=== PATIENT | female | born 1945 | race African-American/Black ===

== ENCOUNTER 2017-02-14 12:26 | Emergency (ER) | payer OTHER ==
[~2017-02-14] VITALS: Ht 160 cm; Wt 61.7 kg
[~2017-02-14 12:26] MED LIST: COZAAR 50 MG TA50 M1 PO; NORVASC2.5 MG PO; NORVASC5 MG PO
[2017-02-14 12:52] VITALS: BP 195/98
[2018-01-03] MEDS ORDERED: [UNRECOGNIZED DRUG - OTHER] (18:44)
[2018-01-03] MEDS ORDERED: [UNRECOGNIZED DRUG - OTHER] (18:44)
[2018-01-03] MEDS ORDERED: MAGNESIUM GLYCINATE (18:46)
== END 2017-02-14 13:09 | disposition home or self-care (01) ==
LOC: M.ERS 12:26
DX: Z48.01 Encounter for change or removal of surgical wound dressing (principal); I10 Essential (primary) hypertension; Z88.0 Allergy status to penicillin; Z88.8 Allergy status to other drugs, medicaments and biological substances

== ENCOUNTER 2018-01-02 09:36 | Inpatient (IN) | payer OTHER ==
[~2018-01-02] VITALS: Ht 162.6 cm; Wt 64.4 kg
[2018-01-02 09:48] VITALS: BP 224/91
[2018-01-02 10:26] LABS: URINE BILIRUBIN NEGATIVE (Negative); URINE BLOOD NEGATIVE (Negative); URINE CLARITY CLEAR; URINE COLOR STRAW; URINE GLUCOSE-RANDOM NEGATIVE (Negative); URINE KETONES NEGATIVE (Negative); URINE LEUKOCYTES-REFLEX NEGATIVE (Negative); URINE NITRITE-REFLEX NEGATIVE (Negative); URINE PROTEIN NEGATIVE (Negative); URINE UROBILINOGEN 0.2 E.U./dl (0.2-1.0)
[2018-01-02 10:32] LABS: ABSOLUTE LYMPHOCYTES 0.6 thou/uL (0.8-5.3); ABSOLUTE MONOCYTES 0.3 thou/uL (0.0-1.2); ABSOLUTE NEUTROPHILS 3.8 thou/uL (1.6-8.1); BASOPHILS 0.3 %; EOSINOPHILS 0.1 %; HEMATOCRIT 37.8 % (37.0-47.0); HEMOGLOBIN 12.7 gm/dL (12.0-15.0); LYMPHOCYTES 13.2 %; MCH 28.9 pg (26.0-34.0); MCHC 33.6 g/dL (28.0-37.0); MCV 86.2 fL (80.0-100.0); MONOCYTES 5.6 %; MPV 9.2 fl. (7.2-11.1); NUCLEATED RBCS 0 /100WBC; PLATELET COUNT* 145 thou/uL (150-400); POLYS 80.8 %; RBC 4.38 mil/uL (4.20-5.00); RDW-CV 13.9 % (10.5-14.5); WBC 4.7 thou/uL (4.0-11.0)
[2018-01-02 10:40] LABS: CREATININE 1.1 mg/dL (0.6-1.3)
[2018-01-02 10:43] LABS: POTASSIUM 2.9 mmol/L (3.5-5.1)
[2018-01-02 10:44] LABS: ALBUMIN 3.7 g/dL (3.4-5.0); MAGNESIUM 1.9 mg/dL (1.8-2.4); TOTAL BILIRUBIN 0.5 mg/dL (<0.1-1.0); TOTAL PROTEIN 8.2 g/dL (6.4-8.2)
[2018-01-02 12:55] VITALS: BP 185/85
[2018-01-02 13:15] VITALS: BP 189/101
[2018-01-02 15:39] VITALS: BP 152/72
[2018-01-02 15:40] VITALS: BP 152/72; BP 164/83; BP 169/78
[2018-01-02 20:00] VITALS: BP 124/62
[2018-01-03] VITALS (7 sets, daily range): BP systolic 123–182; BP diastolic 53–86
[2018-01-03 04:34] LABS: HEMATOCRIT 32.3 % (37.0-47.0); HEMOGLOBIN 10.8 gm/dL (12.0-15.0); MCH 29.3 pg (26.0-34.0); MCHC 33.4 g/dL (28.0-37.0); MCV 87.8 fL (80.0-100.0); MPV 9.5 fl. (7.2-11.1); RBC 3.67 mil/uL (4.20-5.00); RDW-CV 14.3 % (10.5-14.5); WBC 3.6 thou/uL (4.0-11.0)
[2018-01-03 04:44] LABS: ALBUMIN 2.6 g/dL (3.4-5.0); CALCIUM 8.4 mg/dL (8.5-10.1); CREATININE 1.1 mg/dL (0.6-1.3); MAGNESIUM 1.9 mg/dL (1.8-2.4); TOTAL BILIRUBIN 0.5 mg/dL (<0.1-1.0); TOTAL PROTEIN 6.1 g/dL (6.4-8.2)
[2018-01-03 05:06] LABS: POTASSIUM 4.1 mmol/L (3.5-5.1)
--- NOTE | 2018-01-03 14:14 | EKG ---
[place] [address] ELECTROCARDIOGRAM REPORT Name: WANG SMITH Room: [address] ADM IN M.R.#: [id number] Admission: 01/02/18 Attend Phys: Josh Nagel MD Discharge: Date of : 47 Report #: [id number] THIS REPORT FOR: //name// [facility] ED Test Date: 2018-01-02 Test Time: 10:03:08 Pat Name: WANG SMITH Department: Room: [address] Gender: F Sheet Writer: Emily MOSQUEDA : 1945 Requested By: Chnada Hidalgo Order Number: [id number] Giselle MD: Thomas Rueda Measurements Intervals [place] Rate: 73 P: 69 MD: 165 QRS: 28 QRSD: 89 T: 49 QT: 380 QTc: 419 Interpretive Statements Sinus rhythm Left atrial enlargement Compared to ECG 02/07/2017 10:48:45 No significant changes Electronically Signed On 01-03-2018 14:14:10 SPEAR FISHER by Thomas Rueda [email or web address] <ELECTRONICALLY SIGNED> By: Thomas Rueda MD, [facility] 01/03/18 1414 1003 1003 Thomas Rueda MD, FACC /EPI
[2018-01-03] MEDS ORDERED: CO Q-10100 M1 PO (18:44)
[2018-01-03] MEDS ORDERED: [UNRECOGNIZED DRUG - OTHER] PO (18:44)
[2018-01-03] MEDS ORDERED: MAGNESIUM GLYCINATE PO (18:46)
[2018-01-04] VITALS (7 sets, daily range): BP systolic 174–228; BP diastolic 86–100
[2018-01-04 05:14] LABS: CHOLESTEROL 170 mg/dL (<200); HDL CHOLESTEROL 71 mg/dL (>40); LDL CHOLESTEROL 92 mg/dL (<100); TC:HDL 2.4 Ratio (Not establshd); TRIGLYCERIDE 39 mg/dL (<150); VLDL 8 mg/dL (<40)
[2018-01-04 05:21] LABS: SERUM ASSESSMENT CLEAR
[2018-01-04 05:28] LABS: % SATURATION 14 % (20-39); IRON 38 ug/dL (50-175)
--- NOTE | 2018-01-04 16:31 | 2DMMODE ---
[place] [address] 2 D/M-MODE ECHOCARDIOGRAM Name: WANG SMITH Room: [address] IN [facility]#: [id number] Admission: 01/02/18 Attend Phys: Josh Nagel, Discharge: Date of : 47 Date of Service: 01/04/18 1631 Report #: [id number] THIS REPORT FOR: //name// APPROVED REPORT Study performed: 01/04/2018 14:43:54 EXAM: Comprehensive 2D, Doppler, and color-flow Echocardiogram Patient Location: In-Patient Room #: 214 Status: routine BSA: 1.69 HR: 62 bpm BP: 192/97 mmHg Rhythm: NSR Other Information Study Quality: Good Indications Syncope Hypertension/HDD 2D Dimensions IVSd: 9.84 (7-11mm) LVOT Diam: 19.19 (18-24mm) LVDd: 41.60 mm PWd: 12.91 (7-11mm) Ascending Ao: 32.41 (22-36mm) LVDs: 26.03 (25-40mm) Aortic Root: 26.82 mm Volumes Left Atrial Volume (Systole) LA ESV Index: 38.00 mL/m2 Aortic Valve AoV Peak Camilo.: 1.69 m/s AO Peak Gr.: 11.46 mmHg LVOT Max P.49 mmHg AO Mean Gr.: 6.61 mmHg LVOT Mean P.67 mmHg LVOT Max V: 0.93 m/s AO V2 VTI: 34.99 cm LVOT Mean V: 0.59 m/s KARI (VTI): 1.69 cm2 LVOT V1 VTI: 20.48 cm Mitral Valve E/A Ratio: 0.71 MV Decel. Time: 205.34 [place] [address] 2 D/M-MODE ECHOCARDIOGRAM Name: WANG SMITH Room: [address] IN .R.#: [id number] Admission: 01/02/18 Attend Phys: Josh Nagel, Discharge: Date of : 47 Date of Service: 01/04/18 1631 Report #: [id number] MV E Max Camilo.: 0.74 m/s MV PHT: 59.55 ms MVA (PHT): 3.69 cm2 TDI E/Lateral E': 12.33 E/Medial E': 10.57 Medial E' Camilo.: 0.07 m/s Lateral E' Camilo.: 0.06 m/s Pulmonary Valve PV Peak Camilo.: 0.84 m/s PV Peak Gr.: 2.80 mmHg Tricuspid Valve RAP Estimate: 5.00 mmHg TR Peak Gr.: 19.87 mmHg RVSP: 25.00 mmHg PA Pressure: 25.00 mmHg Left Ventricle The left ventricle is normal size. There is normal LV segmental wall motion. Mild to moderate concentric left ventricular hypertrophy. Left ventricular systolic function is normal. The left ventricular ejection fraction is within the normal range. LVEF is 60-65%. Grade I - abnormal relaxation pattern. Right Ventricle The right ventricle is normal size. The right ventricular systolic function is normal. Atria Left atrium is mildly dilated. The right atrium size is normal. Aortic Valve Mild aortic valve sclerosis. Mild aortic regurgitation. Mild aortic stenosis.mean gradient <10mmHg Mitral Valve The mitral valve is normal in structure. Mild mitral regurgitation. No evidence of mitral valve stenosis. Tricuspid Valve The tricuspid valve is normal in structure. Trace tricuspid regurgitation. No pulmonary hypertension. Pulmonic Valve The pulmonary valve is normal in structure[place] [address] 2 D/M-MODE ECHOCARDIOGRAM Name: WANG SMITH Yordy Room: [address] IN [facility]#: [id number] Admission: 01/02/18 Attend Phys: Josh Nagel, Discharge: Date of : 47 Date of Service: 01/04/18 1631 Report #: [id number] regurgitation. Great Vessels The aortic root is normal in size. IVC is normal in size and collapses >50% with inspiration. Pericardium There is no pericardial effusion. <Conclusion> Mild to moderate concentric left ventricular hypertrophy. There is normal LV segmental wall motion. LVEF is 60-65%. Left atrium is mildly dilated. Mild aortic valve sclerosis. Mild aortic stenosis.mean gradient <10mmHg Mild aortic regurgitation. Mild mitral regurgitation. <ELECTRONICALLY SIGNED> By: Dave Galvez MD, FACC 01/04/18 163 163 30 Dave Galvez MD, FACC /INF
[2018-01-04 23:09] LABS: GLYCOHEMOGLOBIN (HGB A1C) 4.8 % (4.8-5.6)
[2018-01-05] VITALS: BP 182/80
[2018-01-05 07:58] VITALS: BP 163/91
[2018-01-05] MEDS ORDERED: CARDIZEM CD120 MG PO (09:11)
[2018-01-05] MEDS ORDERED: ATORVASTATIN CA40 MG PO (09:11)
[2018-01-05] MEDS ORDERED: ASPIR 8181 MG PO (09:11)
[2018-01-05 10:27] VITALS: BP 163/91
[2018-01-05 12:00] VITALS: BP 172/92
--- NOTE | 2018-01-09 15:44 | CON ---
[address] [address] CONSULTATION Name: WANG SMITH Room: [address] IN M.R.#: [id number] Admission: 01/02/18 Attend Phys: Josh Nagel MD Discharge: 01/05/18 Date of : 47 Report #: [id number] THIS REPORT FOR: //name// CC: Josh Mejia DATE OF SERVICE: 01/02/2018 HISTORY OF PRESENT ILLNESS: This is a 72-year-old female patient who was evaluated by me to determine any neurological etiology for the patient's episode of syncope. The patient indicates that she started having headache. Headaches were bilateral. Mostly in the occipital area, but they were radiating towards her eyes. It came spontaneously without any trauma. She usually does not get headaches. She gets only 1 minor headache every couple of months. She took some caffeine enema and tried to go to the bathroom and she passed out. There was no tonic-clonic activity. She was sweating profusely. She feels back to her baseline. She said she did not hit her head. REVIEW OF SYSTEMS: Indicates that she was here in 2017 and those records indicate she had headache and she also had a syncope in a similar circumstances she has one this time. She denies any history of diabetes. She has some history of chest pressures in the past. She has no well-defined history of migraine. Her headache is much improved this morning. She is not complaining of any eye, ENT, respiratory, , musculoskeletal, constitutional, dermatological, hematological, psychiatric, throat or allergic symptom associated with present symptomatology. She did have some nausea, which is better. PAST MEDICAL HISTORY: Positive for hypertension. It is negative for any headache. One of the records indicates thrombocytopenia and platelet count was somewhat low at 145. FAMILY HISTORY: Negative for early age stroke. SOCIAL HISTORY: She does not drink any alcohol on a regular basis. She does not smoke. PHYSICAL EXAMINATION: Indicates she is alert, responsive, oriented, able to follow simple and complex command. Her speech, concentration, fund of knowledge and memory is at her baseline. Cranial nerve examination 2-12 looks unremarkable. Strength, sensation, reflexes and tones looks symmetrical. There is no meningeal sign. There is no thyroid mass. I tried to look at the fundus and I could not have a very good look at that. She is thinly built individual who does not have any dysmorphic features of eyes, ears and face. Her visions and hearing looks adequate. Her pulses are [facility] [address] [place] [address] CONSULTATION Name: WANG SMITH Room: [address]#: [id number] Admission: 01/02/18 Attend Phys: Josh Nagel MD Discharge: 01/05/18 Date of : 47 Report #: [id number] difficult to feel. She has no edema, cyanosis or jaundice. Cardiac examinations appear unremarkable. No atrial fibrillation was noticed. No respiratory difficulty or rhonchi was noticed. Blood pressure is 189/101, pulse is 82, temperature is 98.5, blood pressure was even higher when she came in. LABORATORY DATA: WBC count is 4.7. Potassium is 2.9. Her TSH is normal. She did have a CT scan of the head, which does not show any acute changes. IMPRESSION: Most likely etiology of the patient's symptoms is cardiac. That may be related to her hypokalemia, hypertension or other cardiac etiologies including vasovagal spell. Neurological cause is unlikely, but this patient does have headache and headache predated the patient's other symptoms and because of that, a neurological etiology should be excluded. I discussed that aspect with her. We will get a sed rate MRI and an EEG as workup and we will await cardiac evaluation. RECOMMENDATIONS: 1. MRI. 2. MRA. 3. EEG. 4. Sed rate. 5. Await Cardiology evaluation and then decide about further management. Thank you very much for this referral and if you have any question, please feel free to contact me. <ELECTRONICALLY SIGNED> By: David Grady MD 01/09/18 1544 1452 1858David Grady MD /nt
--- NOTE | 2018-01-09 15:44 | EEG ---
[address] [address] EEG STUDY REPORT Name: SARAHWANG K Room: [address] IN M.R.#: [id number] Admission: 01/02/18 Attend Phys: Josh Nagel MD Discharge: 01/05/18 Date of : 47 Report #: [id number] THIS REPORT FOR: //name// CC: Josh Mejia DATE OF SERVICE: 01/02/2018 This patient is being evaluated for syncope. EEG was done by placing the electrode by standard 10-20 system of electrode placement. Both referential and sequential montages were used for recording. Background activity in this patient's EEG is about 10 Hz and 30 microvolt. The patient went to sleep that was associated with bilateral slowing and vertex sharp waves. Throughout the record, no active epileptiform activity was noticed. IMPRESSION: This patient's EEG is intermixed with some theta range slowing on both sides. That is a nonspecific finding which can occur with encephalopathy, effect of psychotropic medication, dementia, etc. Clinical correlation is recommended. <ELECTRONICALLY SIGNED> By: David Grady MD 01/09/18 1544 1001 1029David Grady MD /nt
--- NOTE | 2018-01-11 13:08 | CON ---
[address] [address] CONSULTATION Name: WANG SMITH Room: [address] IN M.R.#: [id number] Admission: 01/02/18 Attend Phys: Josh Nagel MD Discharge: 01/05/18 Date of : 47 Report #: [id number] THIS REPORT FOR: //name// CC: Josh Mejia DO DATE OF SERVICE: 01/03/2018 TYPE OF REPORT: Cardiology consultation. HISTORY OF PRESENT ILLNESS: The patient is a 72-year-old black female who was admitted after a syncopal spell. The patient has a long history of hypertension. She has seen my partner, Dr. Gordon in the past. She apparently had a stress test years ago. She has no history of heart disease. She is not very active. She notes about a year ago, she got up in the morning to go to the bathroom. After urinating, she stood up, apparently fell to the ground. She came to the Emergency Room here in required stitches above her eye. She was sent home. Recently, she has been doing well. However, yesterday morning, she got up to go to the bathroom at 7:30 in the morning. She then stood up, became diaphoretic and apparently fell to the ground. She was brought here to [place] by car. She was admitted and Cardiology consultation was requested. She denies history of chest pain, shortness of breath, palpitations or lightheadedness. She has had no recent vomiting, diarrhea or bleeding. She denied any fever or cough. PAST MEDICAL HISTORY: Significant for tonsillectomy and hypertension. She previously has been on amlodipine, hydrochlorothiazide and losartan. She is no longer taking any of these medications. She has no history of diabetes or hyperlipidemia. ALLERGIES: She has an allergy to PENICILLIN. FAMILY HISTORY: Mother had congestive heart failure. SOCIAL HISTORY: She is , lives here in [place] with her . They work in [employer]. She actually plays the piano. No smoking or alcohol abuse. REVIEW OF SYSTEMS: She has had no history of stroke. She had asthma as a child. No history of liver disease, kidney disease, cancer, psychiatric illness, chronic skin condition. She does wear glasses. She notes that she does have constant aching in her thighs and knees. PHYSICAL EXAMINATION: GENERAL: Elderly black female, lying in bed. [place] [address] CONSULTATION Name: WANG SMITH Room: [address]#: [id number] Admission: 01/02/18 Attend Phys: Josh Nagel MD Discharge: 01/05/18 Date of : 47 Report #: [id number] VITAL SIGNS: She initially had a blood pressure yesterday morning of 224/91 and currently it is 140/70, pulse 70 and she is afebrile. HEENT: She is anicteric. Conjunctivae pink. Mucous membranes moist. NECK: Veins nondistended. Right carotid bruit is heard. NECK: Supple. CHEST: Clear to auscultation. CARDIOVASCULAR: Regular rate and rhythm, grade 2 systolic ejection murmur. ABDOMEN: Soft and nontender. EXTREMITIES: Had no edema. Dorsalis pedis pulse 2+ bilaterally. SKIN: Warm and dry. NEUROLOGICAL: Nonfocal. LYMPH: No adenopathy. MUSCULOSKELETAL: No joint effusion. RADIOLOGICAL DATA: Her ECG on admission yesterday showed a sinus rhythm, left atrial enlargement, nonspecific ST-segment changes. On the monitor last night, she remained in sinus rhythm. Her workup, she had a previous echocardiogram in 2016 that showed left ventricular hypertrophy, ejection fraction 60%, aortic sclerosis, mild aortic insufficiency and mild mitral regurgitation. She had abdominal ultrasound done yesterday that showed no evidence of an aortic aneurysm. Arterial Doppler of her legs yesterday that showed no evidence or peripheral arterial disease. Carotid Doppler study done yesterday showed no significant stenosis. MRI of the head is ordered. CT scan of the head done without contrast in the Emergency Room yesterday showed no acute abnormality, evidence of small vessel disease. Her chest x-ray yesterday showed normal heart size, clear lung samuel. LABORATORY DATA: Her lab work, sodium 141, creatinine 1.1 and glucose 86. Liver function studies were normal. TSH 0.35. White blood cell count 3.6 and hemoglobin was 10.8. Urinalysis negative for blood and negative for leukocytes. IMPRESSION AND RECOMMENDATIONS: 1. Syncope. Suspect vasovagal. I would suggest discharging the patient with an event recorder. 2. Hypertension. I will recommend resuming losartan. 3. Aortic stenosis. Recommend repeat echo. 4. Anemia. No history of bleeding. <ELECTRONICALLY SIGNED> By: Thomas Rueda MD, FACC 01/11/18 1308 1139 2358Dapolly Rueda MD, FACC /nt
== END 2018-01-05 15:14 | disposition home or self-care (01) | DRG 65 ==
LOC: M.ERS 09:36 → M.TBA-ER 12:00 → M.2W 12:00
PROVIDERS: Internal Medicine Cardiovascular Disease; Personal Emergency Response Attendant; ADMIT Internal Medicine
DX: I63.9 Cerebral infarction, unspecified (principal); I42.9 Cardiomyopathy, unspecified; I16.1 Hypertensive emergency; E87.1 Hypo-osmolality and hyponatremia; E87.6 Hypokalemia; R55 Syncope and collapse; G43.909 Migraine, unspecified, not intractable, without status migrainosus; I10 Essential (primary) hypertension; E88.09 Other disorders of plasma-protein metabolism, not elsewhere classified; E86.9 Volume depletion, unspecified; I35.0 Nonrheumatic aortic (valve) stenosis; I11.9 Hypertensive heart disease without heart failure; I34.0 Nonrheumatic mitral (valve) insufficiency; D69.6 Thrombocytopenia, unspecified; D64.9 Anemia, unspecified; F03.90 Unspecified dementia, unspecified severity, without behavioral disturbance, psychotic disturbance, mood disturbance, and anxiety; W18.30XA Fall on same level, unspecified, initial encounter; Y93.89 Activity, other specified; Y92.89 Other specified places as the place of occurrence of the external cause; Y99.8 Other external cause status; Z88.0 Allergy status to penicillin; Z88.8 Allergy status to other drugs, medicaments and biological substances; Z91.041 Radiographic dye allergy status

== ENCOUNTER 2018-02-03 18:20 | Emergency (ER) | payer OTHER ==
[~2018-02-03] VITALS: Ht 160 cm; Wt 70.3 kg
[~2018-02-03 18:20] MED LIST changes: +ASPIR 8181 MG PO; +ATORVASTATIN CA40 MG PO; +CARDIZEM CD120 MG PO; +CO Q-10100 M1 PO; +MAGNESIUM GLYCINATE PO; +[UNRECOGNIZED DRUG - OTHER] PO
[2018-02-03] MEDS ORDERED: CARDURA4 MG PO (18:29)
[2018-02-03] MEDS ORDERED: ZANAFLEX4 MG PO (20:37)
[2018-02-03 21:04] VITALS: BP 231/95
== END 2018-02-03 21:05 | disposition home or self-care (01) ==
LOC: M.ERS 18:20
DX: S29.012A Strain of muscle and tendon of back wall of thorax, initial encounter (principal); S70.02XA Contusion of left hip, initial encounter; S70.01XA Contusion of right hip, initial encounter; S80.01XA Contusion of right knee, initial encounter; S80.11XA Contusion of right lower leg, initial encounter; S09.8XXA Other specified injuries of head, initial encounter; I10 Essential (primary) hypertension; Z88.6 Allergy status to analgesic agent; Z88.0 Allergy status to penicillin; Z91.041 Radiographic dye allergy status; V89.2XXA Person injured in unspecified motor-vehicle accident, traffic, initial encounter; Y93.89 Activity, other specified; Y92.89 Other specified places as the place of occurrence of the external cause; Y99.8 Other external cause status

== ENCOUNTER → 2018-02-18 | Outpatient (CLI) | payer OTHER ==
[~2018-02-18] MED LIST changes: +CARDURA4 MG PO; +ZANAFLEX4 MG PO
--- NOTE | 2018-02-24 20:04 | SLEEP ---
[facility] [address] [place] [address] SLEEP STUDY REPORT Name: WANG SMITH Room: [facility]#: [id number] Admission: 02/18/18 Attend Phys: Sophia Mccrary Discharge: Date of : 47 Report #: [id number] THIS REPORT FOR: //name// CC: ENID Mejia This study has been reviewed in its entirety by a board certified sleep specialist DATE OF SERVICE: 02/21/2018 The patient is a 72-year-old who weighs 144 pounds with a BMI of 25. The patient underwent home sleep study performed at [facility]. Total recording time was 392 minutes. During the night study, the patient had 2 central apneas, 2 obstructive apneas, no mixed apneas. There were 12 hypopneas. The patient's apnea hypopnea index was only 2.4 per hour. Nocturnal oximetry study revealed an average oxygen saturation of 94% with a lowest of 68%, which was an artifact. Only 5 minutes were spent in oxygen saturation less than 90%. Mean heart rate was 70 beats per minute. IMPRESSION: 1. No clinically significant sleep disordered breathing. The patient's apnea hypopnea index for the entire night was 2.4 per hour. 2. No clinically significant nocturnal hypoxia. RECOMMENDATIONS: 1. The patient did not meet the criteria for CPAP initiation. 2. Avoid BRICK UN[employer] TENDER depressants. <ELECTRONICALLY SIGNED> By: Yuriy Catherine MD 02/24/182003 1254 1302Amona Catherine MD /nt
== END ==
LOC: M.SLEEPLAB 13:00
DX: G47.30 Sleep apnea, unspecified (principal); R53.82 Chronic fatigue, unspecified; R06.83 Snoring; I10 Essential (primary) hypertension; F41.9 Anxiety disorder, unspecified

== ENCOUNTER → 2018-04-15 | Outpatient (CLI) | payer OTHER | LOC: M.ULTRA 09:25 | DX: I10 Essential (primary) hypertension (principal); K76.89 Other specified diseases of liver; Z88.0 Allergy status to penicillin; Z88.8 Allergy status to other drugs, medicaments and biological substances; Z91.041 Radiographic dye allergy status ==

== ENCOUNTER → 2019-03-29 | Outpatient (CLI) | payer MEDICARE | LOC: M.ULTRA 13:00 | DX: R35.0 Frequency of micturition (principal) ==

== ENCOUNTER → 2019-04-18 | Outpatient (CLI) | payer MEDICARE | LOC: M.ULTRA 11:22 | DX: K76.89 Other specified diseases of liver (principal) ==

== ENCOUNTER 2019-10-10 16:46 | Inpatient (IN) | payer MEDICARE ==
[~2019-10-10] VITALS: Ht 160 cm; Wt 76.5 kg
--- NOTE | ~2019-10-10 | CON ---
[address] [address] CONSULTATION Name: WANG SMITH Room: [address] ADM IN M.R.#: [id number] Admission: 10/10/19 Attend Phys: Pepe Murcia MD Discharge: Date of : 47 Report #: [id number] THIS REPORT FOR: //name// cc: Amy Mejia Linda J. DO ~ THIS REPORT FOR: //name// CC: Pepe Mejia DATE OF SERVICE: 10/11/2019 HISTORY OF PRESENT ILLNESS: This is a 74-year-old female patient who was evaluated by me for altered mental status and for any neurological etiology for the patient's altered mental status. The patient indicated that she was confused yesterday and she is better today. When she came in, she has a sodium of 116 and she has been recently given hydrochlorothiazide. She is being seen by Nephrology for that. Review of systems is difficult to come by. I have seen this patient in the past. I reviewed those records and part of the review of system is from there and part of the review of system is from talking to her. She does have a history of hypertension. She had a pretty severe chronic disease on her MRI. She was recommended to get more workup as an outpatient last time, I do not know whether she got it done or not. I even went and looked at my records in the office and I do not find any visit for her. We will try to reach the family sometime. She was admitted, the last time with hypokalemia, but an incidental finding of a small lacunar cerebrovascular accident was found. At that time, she had a carotid Doppler, MRA and MRV and they were mostly unremarkable. SHE IS ALLERGIC TO DYE WITH IODINE, as I understand. REVIEW OF SYSTEMS: A 14-point review of system was carried out. She does not complain of any specific eye, ENT, cardiac, respiratory, GI, musculoskeletal, constitutional, dermatological, hematological, psychiatric, throat, allergic symptom associated with present symptomatology. PAST MEDICAL HISTORY: Positive for hypokalemia and a small stroke. FAMILY HISTORY: Noncontributory. SOCIAL HISTORY: She does not smoke or drink any alcohol. PHYSICAL EXAMINATION: Indicates she is alert. She is responsive. She is oriented. Her speech looks intact. Cranial nerve examination, the best I can tell, looks mostly unremarkable. She [place] [address] CONSULTATION Name: WANG SMITH Room: [address]#: [id number] Admission: 10/10/19 Attend Phys: Pepe Murcia MD Discharge: Date of : 47 Report #: [id number] extremities. Her position sense is present. Reflexes are difficult to tell because she does not relax. Tone looks symmetrical. [id number]-mpei looks reasonably well. I could not look at the fundus. Patient's cardiac examination is unremarkable. She has no respiratory difficulty. There is no edema. Her vision and hearing looks adequate. She has no thyroid mass. She has no carotid bruit. IMPRESSION: Her present symptomatology appeared to be secondary to severe hypokalemia. She has a pretty significant disease in her brain, which is chronic. That will predispose her to neurological symptoms even when hypokalemia is mild. Her hypokalemia is pretty significant. So I suspect the symptoms are because of that. CT scan has indicated pretty extensive white matter disease. She needs the workup and management of that. Presently, it does not look like she is even on antiplatelet. She was recommended cardiolipin antibody and I need to talk to the family and the patient again tomorrow what happened and they need to make a followup appointment with us as an outpatient to get those things done. More than 50 minutes of time was spent taking care of this patient today including reveiew of the records and counceling the patient Thank you very much for this referral and if you have any question, please feel free to contact me. By: 1746 1811Pmisty Kwok MD /tawana
--- NOTE | ~2019-10-10 | CON ---
[address] [address] CONSULTATION Name: WANG SMITH Room: [address] IN M.R.#: [id number] Admission: 10/10/19 Attend Phys: Pepe Murcia MD Discharge: Date of : 47 Report #: [id number] THIS REPORT FOR: //name// cc: Amy Mejia Linda J. DO ~ THIS REPORT FOR: //name// CC: Pepe Mejia NEPHROLOGY CONSULTATION CONSULTING PHYSICIAN: Dr. Murcia. REASON FOR CONSULTATION: Hyponatremia. HISTORY OF PRESENT ILLNESS: This 74-year-old female comes in with headache and hyponatremia with admission sodium of 116. She very recently started hydrochlorothiazide. In 2018 sodium was 141. She drinks about 60 ounces of fluid a day. Denies any unexpected weight loss. She has good appetite. No history of hyponatremia. No nausea, vomiting or diarrhea. She currently is feeling somewhat better, has no complaints. REVIEW OF SYSTEMS: Constitutional, psych, heme, eyes, ENT, respiratory, cardiac, GI, , endocrine, all negative except as documented above. PAST MEDICAL HISTORY: Hypertension. SOCIAL HISTORY: No tobacco. FAMILY HISTORY: Not pertinent in this 74-year-old female. CURRENT MEDICATIONS: Reviewed. PHYSICAL EXAMINATION: VITAL SIGNS: Blood pressure 118/53, pulse 63, respirations 14, temperature 36.6. GENERAL: No acute distress. EYES: Open. EARS: Externally normal. NECK: Supple. CARDIOVASCULAR: Regular rate. LUNGS: No crackles. ABDOMEN: Soft. MUSCULOSKELETAL: Nontender. PSYCHIATRIC: [place]ake, [place] [address] CONSULTATION Name: WANG SMITH Room: [address] IN .R.#: [id number] Admission: 10/10/19 Attend Phys: Pepe Murcia MD Discharge: Date of : 47 Report #: [id number] LABORATORY DATA: White cell count 3.2, hemoglobin 12.2, platelets 179. Sodium 122, potassium 3.9, chloride 90, bicarbonate 27, BUN 12, creatinine 1.2, glucose 88, calcium 8.2. ASSESSMENT: 1. Hyponatremia with initial sodium of 116. In 2018 sodium was 141, was recently started on hydrochlorothiazide. CT head and CT abdomen and pelvis were unrevealing. 2. hypertension. PLAN: We will check sodium now with parameters to call at 6:00 p.m. this evening. We will go ahead and start normal saline and order serial sodiums to appropriately correct. Thus far, sodium is correcting very appropriately. We would avoid hydrochlorothiazide indefinitely. We will check chest x-ray. We will check TSH, urine sodium and urine osmolarity. Check labs again in the a.m. Thank you for requesting my opinion in the care and management of this patient. By: 1610 1726Abid Carl Catherine MD /tawana
[2019-10-10 16:58] VITALS: BP 183/91
[2019-10-10] MEDS ORDERED: SPIRONOLACTONE25 MG PO (17:02)
[2019-10-10] MEDS ORDERED: HYDROCHLOROTHIA25 M2 PO (17:03)
[2019-10-10 18:13] LABS: ABSOLUTE LYMPHOCYTES 0.5 thou/uL (0.8-5.3); ABSOLUTE MONOCYTES 0.3 thou/uL (0.0-1.2); ABSOLUTE NEUTROPHILS 3.8 thou/uL (1.6-8.1); BASOPHILS 0.4 %; EOSINOPHILS 0.2 %; HEMATOCRIT 37.3 % (37.0-47.0); LYMPHOCYTES 10.9 %; MCH 30.5 pg (26.0-34.0); MCHC 34.9 g/dL (28.0-37.0); MCV 87.3 fL (80.0-100.0); MPV 7.8 fl. (7.2-11.1); NUCLEATED RBCS 0 /100WBC; PLATELET COUNT* 221 thou/uL (150-400); POLYS 81.5 %; RBC 4.27 mil/uL (4.20-5.00); RDW-CV 13.8 % (10.5-14.5); WBC 4.7 thou/uL (4.0-11.0)
[2019-10-10 18:20] LABS: CALCIUM 8.5 mg/dL (8.5-10.1); CREATININE 1.3 mg/dL (0.6-1.3); POTASSIUM 4.9 mmol/L (3.5-5.1)
[2019-10-10 18:32] LABS: ALBUMIN 3.6 g/dL (3.4-5.0); TOTAL BILIRUBIN 0.5 mg/dL (<0.1-1.0); TOTAL PROTEIN 7.8 g/dL (6.4-8.2)
[2019-10-10 20:23] VITALS: BP 157/98
[2019-10-10 20:43] VITALS: BP 168/95
[2019-10-10 21:00] VITALS: BP 177/85
[2019-10-10 22:00] VITALS: BP 133/72
[2019-10-10 22:36] LABS: CALCIUM 7.8 mg/dL (8.5-10.1); CREATININE 1.2 mg/dL (0.6-1.3)
[2019-10-10 22:37] LABS: POTASSIUM 3.7 mmol/L (3.5-5.1)
[2019-10-10 23:00] VITALS: BP 183/87
[2019-10-11] VITALS (10 sets, daily range): BP systolic 118–183; BP diastolic 53–89
[2019-10-11 05:59] LABS: ABSOLUTE LYMPHOCYTES 0.9 thou/uL (0.8-5.3); ABSOLUTE MONOCYTES 0.4 thou/uL (0.0-1.2); ABSOLUTE NEUTROPHILS 1.9 thou/uL (1.6-8.1); BASOPHILS 0.4 %; EOSINOPHILS 0.4 %; HEMATOCRIT 35.3 % (37.0-47.0); HEMOGLOBIN 12.2 gm/dL (12.0-15.0); LYMPHOCYTES 28.2 %; MCH 30.4 pg (26.0-34.0); MCHC 34.5 g/dL (28.0-37.0); MONOCYTES 12.9 %; MPV 7.4 fl. (7.2-11.1); NUCLEATED RBCS 0 /100WBC; PLATELET COUNT* 179 thou/uL (150-400); POLYS 58.1 %; RBC 4.01 mil/uL (4.20-5.00); RDW-CV 13.6 % (10.5-14.5); WBC 3.2 thou/uL (4.0-11.0)
[2019-10-11 06:16] LABS: CALCIUM 8.2 mg/dL (8.5-10.1); CREATININE 1.2 mg/dL (0.6-1.3); POTASSIUM 3.9 mmol/L (3.5-5.1)
--- NOTE | 2019-10-11 11:32 | EKG ---
[place] [address] ELECTROCARDIOGRAM REPORT Name: WANG SMITH Room: [address] IN .R.#: [id number] Admission: 10/10/19 Attend Phys: Pepe Murcia, Discharge: Date of : 47 Date of Service: 10/10/19 1824 Report #: [id number] THIS REPORT FOR: //name// [facility] ED Test Date: 2019-10-10 Test Time: 18:24:20 Pat Name: WANG SMITH Department: Room: [facility] Gender: F Activity Aid: : 1945 Requested By: Jose Eduardo Morrison Order Number: [id number] MD: Raman Gordon Measurements Intervals [place] Rate: 84 P: 79 MA: 157 QRS: 40 QRSD: 91 T: 57 QT: 379 QTc: 449 Interpretive Statements Sinus rhythm Left atrial enlargement Compared to ECG 01/02/2018 10:03:08 No significant changes Electronically Signed On 10-11-2019 11:31:56 CDT by Raman Gordon [email or web address] <ELECTRONICALLY SIGNED> By: Raman Gordon MD, [facility] 10/11/19 1131 1824 1824 Raman Gordon MD, [facility] /EPI
[2019-10-12] VITALS: BP 175/91
[2019-10-12 01:28] LABS: CALCIUM 7.8 mg/dL (8.5-10.1); CREATININE 1.3 mg/dL (0.6-1.3); POTASSIUM 3.9 mmol/L (3.5-5.1)
[2019-10-12 02:37] LABS: CALCIUM 7.8 mg/dL (8.5-10.1); CREATININE 1.3 mg/dL (0.6-1.3); POTASSIUM 3.9 mmol/L (3.5-5.1)
[2019-10-12 04:00] VITALS: BP 149/71
[2019-10-12 05:31] LABS: ABSOLUTE LYMPHOCYTES 0.8 thou/uL (0.8-5.3); ABSOLUTE MONOCYTES 0.4 thou/uL (0.0-1.2); ABSOLUTE NEUTROPHILS 2.4 thou/uL (1.6-8.1); BASOPHILS 0.4 %; EOSINOPHILS 0.4 %; HEMATOCRIT 36.6 % (37.0-47.0); HEMOGLOBIN 12.7 gm/dL (12.0-15.0); LYMPHOCYTES 21.5 %; MCH 30.2 pg (26.0-34.0); MCHC 34.7 g/dL (28.0-37.0); MONOCYTES 11.8 %; MPV 7.4 fl. (7.2-11.1); NUCLEATED RBCS 0 /100WBC; PLATELET COUNT* 181 thou/uL (150-400); POLYS 65.9 %; RDW-CV 13.4 % (10.5-14.5); WBC 3.6 thou/uL (4.0-11.0)
[2019-10-12 05:45] LABS: CALCIUM 8.2 mg/dL (8.5-10.1); CREATININE 1.3 mg/dL (0.6-1.3); POTASSIUM 4.1 mmol/L (3.5-5.1)
[2019-10-12 08:00] VITALS: BP 155/88
[2019-10-12 12:00] VITALS: BP 129/66
[2019-10-12 16:00] VITALS: BP 102/54
[2019-10-12 20:20] VITALS: BP 154/78
[2019-10-13] VITALS: BP 155/73
[2019-10-13 04:04] VITALS: BP 153/62
[2019-10-13 05:54] LABS: CALCIUM 7.7 mg/dL (8.5-10.1); CREATININE 1.1 mg/dL (0.6-1.3); POTASSIUM 4.3 mmol/L (3.5-5.1)
[2019-10-13 08:00] VITALS: BP 164/76
[2019-10-13] MEDS ORDERED: LISINOPRIL20 MG PO (10:50)
[2019-10-13] MEDS ORDERED: METOPROLOL TART25 MG PO (10:50)
[2019-10-13] MEDS ORDERED: ASA81BEC PO (10:57)
[2019-10-13 12:13] VITALS: BP 164/76
[2019-10-13 12:16] VITALS: BP 164/76
[2019-10-13 12:45] VITALS: BP 164/76
== END 2019-10-13 13:30 | disposition home or self-care (01) | DRG 640 ==
LOC: M.ERS 16:46 → M.ICU 18:53 → M.TBA-ER 18:53 → M.ICU 20:07 → M.2W 10-11 20:01
PROVIDERS: Emergency Medicine Emergency Medical Services; Internal Medicine Nephrology; ADMIT Internal Medicine; ATTEND Internal Medicine
DX: E87.1 Hypo-osmolality and hyponatremia (principal); G93.41 Metabolic encephalopathy; Z20.828 Contact with and (suspected) exposure to other viral communicable diseases; I10 Essential (primary) hypertension; T50.2X5A Adverse effect of carbonic-anhydrase inhibitors, benzothiadiazides and other diuretics, initial encounter; Z88.0 Allergy status to penicillin; Z79.899 Other long term (current) drug therapy; Z88.8 Allergy status to other drugs, medicaments and biological substances; Y92.89 Other specified places as the place of occurrence of the external cause

== ENCOUNTER 2020-02-21 11:07 | Inpatient (IN) | payer MEDICARE ==
[~2020-02-21] VITALS: Ht 162.6 cm; Wt 80.6 kg
--- NOTE | ~2020-02-21 | CON ---
[address] [address] CONSULTATION Name: WANG SMITH Room: [address] IN M.R.#: [id number] Admission: 02/21/20 Attend Phys: Pepe Murcia MD Discharge: Date of : 47 Report #: [id number] THIS REPORT FOR: cc: Amy Mejia Linda J. DO ~ David Kwok MD DATE OF SERVICE: 02/21/2020 HISTORY OF PRESENT ILLNESS: This is a 74-year-old female patient who was seen by me for speech difficulty, which started yesterday morning. She has been admitted to this hospital and we have done some testing in this patient. She has a severe disease of the brain, but that is a chronic process. Her followup is very poor. At this time, she came because she stopped taking her medication and her blood pressure was very high. She does not give me a good reason why she stopped taking her medication. REVIEW OF SYSTEMS: Indicates she feels her speech is not as good as before. She had a prior history of stroke. She also has presented with metabolic disturbances at one time. She has severe hypertension at the moment that was a relevant 14-point review of system. PAST MEDICAL HISTORY: Positive for stroke and encephalopathy. FAMILY HISTORY: Unremarkable. SOCIAL HISTORY: Last time, I have talked to her , today no family member is there. I will talk to them when I can find them. She does not use any alcohol. PHYSICAL EXAMINATION: Indicates she is alert. She is responsive. She is slow in talking, but she can still talk. A neuromuscular and cranial nerve examination is unchanged compared to the last time. There is no meningeal sign. She is a reasonably built individual. She does not have any dysmorphic features of eyes, ears and face. Cardiac and respiratory examination is unremarkable. IMPRESSION AND PLAN: I had a long talk with the patient again. I talked about compliance. I told her that her MRI is already so bad that she should not do what she did today and she should follow up with us as an outpatient. I am not sure how much good, it will do, but did spend a lot of time with her. I will get an MRI done to see if she had a new stroke. Further management will depend upon that. She needs to be [place] [address] CONSULTATION Name: WANG SMITH Room: [address] IN [facility]#: [id number] Admission: 02/21/20 Attend Phys: Pepe Murcia MD Discharge: Date of : 47 Report #: [id number] More than 50 minutes of time was spent taking care of this patient today and majority was spent counseling and coordinating. By: 1836 Madhav Kwok MD /tawana
[~2020-02-21 11:07] MED LIST changes: +ASA81BEC PO; +HYDROCHLOROTHIA25 M2 PO; +LISINOPRIL20 MG PO; +METOPROLOL TART25 MG PO; +SPIRONOLACTONE25 MG PO
[2020-02-21 11:16] VITALS: BP 256/127
[2020-02-21 11:30] LABS: ABSOLUTE EOSINOPHILS 0.1 thou/uL (0.0-0.7); ABSOLUTE LYMPHOCYTES 1.1 thou/uL (0.8-5.3); ABSOLUTE MONOCYTES 0.4 thou/uL (0.0-1.2); ABSOLUTE NEUTROPHILS 2.6 thou/uL (1.6-8.1); HEMATOCRIT 38.8 % (37.0-47.0); LYMPHOCYTES 26.3 %; MCH 29.9 pg (26.0-34.0); MCHC 33.5 g/dL (28.0-37.0); MCV 89.2 fL (80.0-100.0); MONOCYTES 9.4 %; MPV 8.5 fl. (7.2-11.1); NUCLEATED RBCS 0 /100WBC; PLATELET COUNT* 158 thou/uL (150-400); POLYS 60.3 %; RBC 4.35 mil/uL (4.20-5.00); RDW-CV 13.5 % (10.5-14.5); WBC 4.3 thou/uL (4.0-11.0)
[2020-02-21 11:38] LABS: CALCIUM 9.1 mg/dL (8.5-10.1); CREATININE 1.3 mg/dL (0.6-1.3); POTASSIUM 4.4 mmol/L (3.5-5.1)
[2020-02-21 11:42] LABS: APTT 25.1 Seconds (25.0-31.3); PROTIME 10.3 Seconds (9.20-11.50)
[2020-02-21 11:43] LABS: ALBUMIN 3.6 g/dL (3.4-5.0); TOTAL BILIRUBIN 0.6 mg/dL (<0.1-1.0); TOTAL PROTEIN 7.8 g/dL (6.4-8.2)
[2020-02-21 13:49] LABS: AMP/METHAMP Negative (Negative); BARBITURATES Negative (Negative); BENZODIAZEPINES Negative (Negative); COCAINE Negative (Negative); METHADONE Negative (Negative); OPIATES Negative (Negative); PCP Negative (Negative); THC Negative (Negative)
--- NOTE | 2020-02-21 16:28 | 2DMMODE ---
[place] [address] 2 D/M-MODE ECHOCARDIOGRAM Name: WANG SMITH Room: [place] [address] ADM IN .R.#: [id number] Admission: 02/21/20 Attend Phys: Pepe Murcia, Discharge: Date of : 47 Date of Service: 02/21/20 1628 Report #: [id number] THIS REPORT FOR: cc: Amy Mejia Linda J. DO Liston, Michael J. MD [facility] ~ APPROVED REPORT Study performed: 02/21/2020 13:52:21 EXAM: Comprehensive 2D, Doppler, and color-flow Echocardiogram Patient Location: In-Patient Room #: er Status: routine BSA: 1.87 HR: 69 bpm BP: 147/94 mmHg Rhythm: NSR Other Information Study Quality: Good Indications CVA/TIA Echo Enhancing Agent Indication: Rule out Shunt Agent(s) / Amount(s) Used: Agitated Saline 10 cc 2D Dimensions IVSd: 17.00 (7-11mm) LVOT Diam: 20.41 (18-24mm) LVDd: 42.02 mm PWd: 15.00 (7-11mm) LVDs: 23.55 (25-40mm) Aortic Root: 29.60 mm Volumes Left Atrial Volume (Systole) LA ESV Index: 24.50 mL/m2 Aortic Valve AoV Peak Camilo.: 2.05 m/s AO Peak Gr.: 16.80 mmHg LVOT Max P.69 mmHg AO Mean Gr.: 8.95 mmHg LVOT Mean P.57 [place] [address] 2 D/M-MODE ECHOCARDIOGRAM Name: WANG SMITH Room: [address] IN [facility]#: [id number] Admission: 02/21/20 Attend Phys: Pepe Murcia, Discharge: Date of : 47 Date of Service: 02/21/20 1628 Report #: [id number] LVOT Max V: 0.96 m/s AO V2 VTI: 38.92 cm LVOT Mean V: 0.57 m/s KARI (VTI): 1.70 cm2 LVOT V1 VTI: 20.26 cm Mitral Valve E/A Ratio: 0.74 MV Decel. Time: 285.93 ms MV E Max Camilo.: 0.70 m/s MV PHT: 82.92 ms MVA (PHT): 2.65 cm2 TDI E/Lateral E': 11.67 E/Medial E': 14.00 Medial E' Camilo.: 0.05 m/s Lateral E' Camilo.: 0.06 m/s Pulmonary Valve PV Peak Camilo.: 1.31 m/s PV Peak Gr.: 6.87 mmHg Tricuspid Valve RAP Estimate: 5.00 mmHg TR Peak Gr.: 24.26 mmHg RVSP: 29.00 mmHg PA Pressure: 29.00 mmHg Left Ventricle The left ventricle is normal size. There is normal LV segmental wall motion. Mild to moderate concentric left ventricular hypertrophy. Left ventricular systolic function is normal. LVEF is 60-65%. Grade I - abnormal relaxation pattern. Right Ventricle The right ventricle is normal size. The right ventricular systolic function is normal. Atria The left atrium size is normal. The interatrial septum is intact with no evidence for an atrial septal defect. The right atrium size is normal. Aortic Valve Mild aortic valve sclerosis. Mild aortic regurgitation. Mild aortic stenosis. Mitral Valve The mitral valve is normal in structure. Mild mitral regurgitation. No evidence [place] [address] 2 D/M-MODE ECHOCARDIOGRAM Name: WNAG SMITH Yordy Room: [address] IN [facility]#: [id number] Admission: 02/21/20 Attend Phys: Pepe Murcia, Discharge: Date of : 47 Date of Service: 02/21/20 1628 Report #: [id number] Tricuspid Valve The tricuspid valve is normal in structure. Trace tricuspid regurgitation. No pulmonary hypertension. Pulmonic Valve The pulmonary valve is normal in structure. There is no pulmonic valvular regurgitation. Great Vessels The aortic root is normal in size. IVC is normal in size and collapses >50% with inspiration. Pericardium There is no pericardial effusion. <Conclusion> The left ventricle is normal size. Mild to moderate concentric left ventricular hypertrophy. Left ventricular systolic function is normal. LVEF is 60-65%. Grade I - abnormal relaxation pattern. Mild aortic valve sclerosis. Mild aortic regurgitation. Mild aortic stenosis. Mild mitral regurgitation. Trace tricuspid regurgitation. No pulmonary hypertension. IVC is normal in size and collapses >50% with inspiration. The interatrial septum is intact with no evidence for an atrial septal defect. <ELECTRONICALLY SIGNED> By: Raman Gordon MD, FACC 02/21/20 1628 1628 1628 Raman Gordon MD, FACC /INF
--- NOTE | 2020-02-21 16:35 | EKG ---
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
[2020-02-21 16:37] VITALS: BP 189/80
[2020-02-21 16:51] VITALS: BP 190/92
--- NOTE | 2020-02-21 18:36 | NUR ---
PT ADMITTED TO ROOM 232 VIA WC FROM ED AT APPROX 1650. PT DAUGHTER IN ROOM AND UPDATED ON POC. ADMISSION ASSESSMENT AND HX COMPLETED CHARTED. PT ORIENTED TO ROOM AND CALL LIGHT. PT AOX4 BUT FORGETFUL, NO DEFICITS NOTED, NIH CHARTED. PT UP AD ANGE AND BP HIGH, HYDRALAZINE GIVEN AT THIS TIME. PT GOAL IS TO KEEP BP WNL AND REMAIN FREE FROM STROKE SYMPTOMS. MEDS PER APR, HOURLY ROUNDING OBSERVED, CALL LIGHT W/IN REACH.
[2020-02-21 20:00] VITALS: BP 169/76
[2020-02-22] VITALS (9 sets, daily range): BP systolic 114–208; BP diastolic 62–102
[2020-02-22 02:06] LABS: GLYCOHEMOGLOBIN (HGB A1C) 4.9 % (4.8-5.6)
[2020-02-22 04:44] LABS: HEMATOCRIT 34.7 % (37.0-47.0); HEMOGLOBIN 11.4 gm/dL (12.0-15.0); MCH 29.3 pg (26.0-34.0); MCHC 32.9 g/dL (28.0-37.0); MCV 89.1 fL (80.0-100.0); MPV 8.9 fl. (7.2-11.1); NUCLEATED RBCS 0 /100WBC; PLATELET COUNT* 159 thou/uL (150-400); RBC 3.89 mil/uL (4.20-5.00); RDW-CV 13.7 % (10.5-14.5); WBC 4.6 thou/uL (4.0-11.0)
[2020-02-22 04:55] LABS: CALCIUM 8.9 mg/dL (8.5-10.1); CREATININE 1.3 mg/dL (0.6-1.3); POTASSIUM 4.4 mmol/L (3.5-5.1)
[2020-02-22 04:57] LABS: CHOLESTEROL 177 mg/dL (<200); HDL CHOLESTEROL 63 mg/dL (>40); LDL CHOLESTEROL 108 mg/dL (<100); TC:HDL 2.8 Ratio (Not establshd); TRIGLYCERIDE 30 mg/dL (<150); VLDL 6 mg/dL (<40)
[2020-02-22 05:10] LABS: SERUM ASSESSMENT Clear
[2020-02-22 06:17] LABS: ABSOLUTE EOSINOPHILS 0.1 thou/uL (0.0-0.7); ABSOLUTE LYMPHOCYTES 1.5 thou/uL (0.8-5.3); ABSOLUTE MONOCYTES 0.5 thou/uL (0.0-1.2); ABSOLUTE NEUTROPHILS 2.5 thou/uL (1.6-8.1); ANISOCYTOSIS 1+; PLATELET ESTIMATE ADEQUATE; POIKILOCYTOSIS 1+
--- NOTE | 2020-02-22 06:55 | NUR ---
DISCUSSED PLAN OF CARE WITH PATIENT AND DAUGHTER AT BEGINNING OF SHIFT. PT'S DAUGHTER SAID SHE DID NOT WANT HER MOTHER TO HAVE LOVENOX OR LOPRESSOR AT 2100. DAUGHTER FEELS THAT HYDRAZALINE BROUGHT B/P DOWN AND SHE SHOULD STAY ON THAT. EXPLAINED TO DTR AND PT THAT THIS WAS ORDERED PRN TO BE GIVEN IF ORDERED B/P MEDS DID NOT WORK. DAUGHTER AND PT STILL REFUSED. PT ALSO REFUSED AM PROTONIX. DAUGHTER SAID SHE WOULD DISCUSS WITH THIS AM. PT IS ALERT/ORIENTED X4, SOMEWHAT FORGETFUL. SMALL AMOUNT OF FACIAL DROOPING NOTED ON LT SIDE OF MOUTH WHEN PT IS NOT SMILING BUT FULL SMILE NOTED WHEN PT ATTEMPTS TO SMILE. PT UP TO BATHROOM WITH SLOW STEADY GAIT TO VOID. BLOOD PRESSURE AT 0400 ELEVATED BUT PT SAID SHE HAD JUST WALKED TO BATHROOM. RECHECKED 30 MIN LATER AND B/P WAS LOWER. FREQUENTLY USED ITEMS AND CALL LIGHT WITHIN REACH. SIDERAILS UPX2. WILL CONTINUE TO MONITOR.
--- NOTE | 2020-02-22 09:02 | NUR ---
CM SPOKE TO THE PT TO DISCUSS CM ASSESSMENT. PT MOSTLY ANSWERS YES OR NO TO ASSESSMENT QUESTIONS. PT SPEAKS IN A VERY WISPERED TONE AN IS SOMEWHAT SLOW TO RESPOND. PT A&O, AND NORMALLY INDEPENENT WITH ADL'S. PT USES A WALKER FOR MOBILITY 'SOMETIMES'. PT HAS 0 HX OF HH OR SNF. CM WILL REMAIN AVAILABLE TO ASSIST AND FOLLOW NEEDED.
--- NOTE | 2020-02-22 18:57 | NUR ---
ASSUMED PT CARE AT 0730, PT AOX3-4, CAN BE CONFUSED AND FORGETFUL AT TIMES. PT IN ROOM AND UPDATED ON POC. PT DAUGHTER CALLED AND UPDATED ON POC WELL. PT WORKED W/ DR AND BP MEDS CHANGED. PT BP HIGH THIS EVENING, PRN HYDRALAZINE GIVEN W/ NO CHANGE, DR NOTIFIED AND AMLODIPINE ORDERED AND GIVEN. PT HAD MRI AND MRA TODAY, SEE RESULTS. PT WORKED W/ NEURO AND BLOOD THINNERS ORDERED AND GIVEN. PT GOAL IS TO REMAIN FREE FROM STROKE SYMPTOMS AND BRING BP DOWN. MEDS PER MAR, HOURLY ROUNDING OBSERVED, FALL PRECAUTIONS IN PLACE, CALL LIGHT W/IN REACH.
[2020-02-23 04:00] VITALS: BP 152/78
[2020-02-23 04:44] LABS: ABSOLUTE LYMPHOCYTES 0.9 thou/uL (0.8-5.3); ABSOLUTE NEUTROPHILS 3.3 thou/uL (1.6-8.1); HEMOGLOBIN 12.3 gm/dL (12.0-15.0)
[2020-02-23 04:47] LABS: ABSOLUTE EOSINOPHILS 0.1 thou/uL (0.0-0.7); ABSOLUTE MONOCYTES 0.5 thou/uL (0.0-1.2); BASOPHILS 0.7 %; EOSINOPHILS 2.9 %; LYMPHOCYTES 17.8 %; MCH 29.7 pg (26.0-34.0); MCHC 33.4 g/dL (28.0-37.0); MCV 89.1 fL (80.0-100.0); MONOCYTES 11.2 %; NUCLEATED RBCS 0 /100WBC; PLATELET COUNT* 177 thou/uL (150-400); POLYS 67.4 %; RBC 4.15 mil/uL (4.20-5.00); RDW-CV 13.3 % (10.5-14.5); WBC 4.9 thou/uL (4.0-11.0)
[2020-02-23 05:14] LABS: CALCIUM 9.1 mg/dL (8.5-10.1); CREATININE 1.3 mg/dL (0.6-1.3); POTASSIUM 4.1 mmol/L (3.5-5.1)
--- NOTE | 2020-02-23 06:14 | NUR ---
ASSUMED PT CARE AT 1945. PT IS A/OX3-4. PT IS FORGETFUL AT TIMES. PT DAUGHTER "CATHY" CALLED AND VOICED CONCERNS ABOUT THE MEDICATIONS HER MOTHER WAS BEING PRESCRIBED. OBTAINED VERBAL CONSENT FROM PT TO DISCUSS PT'S PLAN OF CARE. "CATHY" STATED, "MY MAIN CONCERN IS THAT HER BLOOD IS BEING CONTROLLED B/C WE DON'T WANT HER TO HAVE ANOTHER STROKE." RN PROVIDED EDUCATION TO DAUGHTER THAT PT IS RECEIVING SCHEDULED CARVEDILOL AND PRN HYDRALAZINE IF SYS BP IS GREATER THAN 180. PT'S DAUGHTER VOICED CONCERN ABOUT HER MOM NOT GETTING ENOUGH SLEEP AND DIDN'T WANT HER TO BE WOKEN UP DURING THE NIGHT. RN EDUCATED PT'S DAUGHTER THAT THE PT'S SAFETY IS PRIORITY AND IS CHECKED ON HOURLY. AND THAT OUR GOAL IS TO NOT WAKE THE PT'S DURING THESE TIMES BUT SAFETY IS A PRIORITY. CATHY REORTED UNDERSTANDING AND WAS THANKFUL. CATHY VOICED CONCERN THAT HER MOM DID NOT GET TO EAT DINNER TONIGHT B/C WHEN HER MOM WENT TO THE BATHROOM HER DINNER TRAY WAS GONE. PT STATED SHE WANTED A TURKY SANDWHICH. PT ATE 100% OF MEAL. TURKEY SANDWHICH, CHIPS, AND ISABELLE CRACKERS. PT HAD ASYMPTOMATIC HTN AT APPROX. 0030. PRN HYDRALAZINE WAS ADMINISTERED PER ORDER PRESCRIBED. MEDICATION WAS EFFECTIVE. BP AT 0400 WAS 152/78, P 98. PT DENIED C/O. PTS GOAL IS REMAIN FREE OF STROKE SYMPTOMS. PT IS 0 ON NIH SCALE. PT'S BP GOAL MET THIS AM. PT'S GOAL IS TO CONTINUE HAVING STABLE BP'S. HOURLY ROUNDING DONE. FALL PRECAUTIONS IN PLACE. CALL LIGHT WITHIN REACH. PT RESTING IN BED. NO CURRENT C/O VOICED. WILL CONT. TO MONITOR.
[2020-02-23 08:00] VITALS: BP 148/85
--- NOTE | 2020-02-23 11:31 | NUR ---
CM INFORMED DURING PRIME ROUNDING OF THE PLAN OF CARE FOR THE PT. PT AWAITING ARU CONSULT DECISION, AND PT/OT EVALS TO DETERMINE ABILITY OF ARU TO ACCEPT PT FOR INPT REHAB. CM WILL REMAIN AVAILABLE TO ASSIST AND FOLLOW NEEDED.
[2020-02-23 12:07] VITALS: BP 180/94
[2020-02-23 16:00] VITALS: BP 161/89
--- NOTE | 2020-02-23 18:45 | NUR ---
ASSUMED PT CARE AT 0730, PT AOX2-3 AND DYSARTHRIA NOTED, ESPECIALLY THE DAY WENT ON. NIH OF 3 TODAY, SEE CHARTING. PT WORKED W/ DR TODAY AND BP MEDS CHANGED. PT DAUGHTER IN ROOM AND UPDATED ON POC. PT WORKED W/ PT AND OT TODAY, GOAL IS TO WORK ON GETTING ACCEPTED TO REHAB [facility] TOMORROW. MEDS PER MAR, HOURLY ROUNDING OBSERVED, FALL PRECAUTIONS IN PLACE, CALL LIGHT W/IN REACH, DISCUSSED DYSARTHRIA W/ DR CH.
[2020-02-23 18:56] VITALS: BP 139/78
[2020-02-23 20:30] VITALS: BP 163/71
[2020-02-24 00:48] VITALS: BP 198/89
[2020-02-24 04:48] VITALS: BP 143/77
--- NOTE | 2020-02-24 07:04 | NUR ---
Oriented x 2-3. She has rt sided weakness. She is up with minimal assist x1 with walker and gaitbelt. NIH score of 5. SR on the monitor. VS stable. Tylenol given for neck pain. She has slept well.
[2020-02-24 09:17] VITALS: BP 172/103
[2020-02-24 13:00] VITALS: BP 154/75
[2020-02-24 13:30] VITALS: BP 136/58
--- NOTE | 2020-02-24 14:54 | NUR ---
BP 136/58 AT 1450. DAUGHTER AWEAR AND AGREE NOT TO GIVE PT 1400 HYDRALIZINE
--- NOTE | 2020-02-24 18:56 | NUR ---
PT A&Ox4. VITALS STABLE. IV PATENT. UP WITH 1 MIN ASSIST. EATING LUNCH AND DINNER WELL. DAUGHTER IN ROOM MAJORITY OF DAY. FALL PRECAUTIONS IN PLACE. PENDING REHAB. CALL LIGHT WITHIN REACH. WILL CONITNUE TO MONITOR.
[2020-02-25] VITALS (12 sets, daily range): BP systolic 105–157; BP diastolic 48–110
--- NOTE | 2020-02-25 07:06 | NUR ---
PATIENT SLEPT MOST OF THE NIGHT. IV REMAINS SALINE LOCKED. PATIENT HAD NO COMPLAINTS OF PAIN. BED ALARM REMAINS ON FOR PATIENT SAFETY. WILL CONTINUE TO MONITOR.
[2020-02-25 09:53] LABS: ABSOLUTE BASOPHILS 0.1 thou/uL (0.0-0.2); ABSOLUTE EOSINOPHILS 0.1 thou/uL (0.0-0.7); ABSOLUTE LYMPHOCYTES 0.9 thou/uL (0.8-5.3); ABSOLUTE MONOCYTES 0.4 thou/uL (0.0-1.2); ABSOLUTE NEUTROPHILS 3.4 thou/uL (1.6-8.1); BASOPHILS 1.3 %; EOSINOPHILS 2.5 %; HEMATOCRIT 35.2 % (37.0-47.0); HEMOGLOBIN 11.6 gm/dL (12.0-15.0); LYMPHOCYTES 18.3 %; MCH 29.7 pg (26.0-34.0); MONOCYTES 8.4 %; MPV 8.7 fl. (7.2-11.1); NUCLEATED RBCS 0 /100WBC; PLATELET COUNT* 193 thou/uL (150-400); POLYS 69.5 %; RBC 3.91 mil/uL (4.20-5.00); RDW-CV 13.5 % (10.5-14.5); WBC 4.8 thou/uL (4.0-11.0)
[2020-02-25 09:54] LABS: PCO2 VENOUS 43.3 mmHg (41.0-51.0); PO2 VENOUS 34.8 mmHg (35.0-45.0)
[2020-02-25 09:57] LABS: CREATININE 1.6 mg/dL (0.6-1.3); POTASSIUM 3.8 mmol/L (3.5-5.1)
[2020-02-25 10:02] LABS: ALBUMIN 3.3 g/dL (3.4-5.0); MAGNESIUM 2.4 mg/dL (1.8-2.4); TOTAL BILIRUBIN 0.6 mg/dL (<0.1-1.0); TOTAL PROTEIN 6.9 g/dL (6.4-8.2)
[2020-02-25 19:39] LABS: URINE BILIRUBIN NEGATIVE (Negative); URINE BLOOD NEGATIVE (Negative); URINE CLARITY CLEAR; URINE COLOR YELLOW; URINE GLUCOSE-RANDOM NEGATIVE (Negative); URINE KETONES TRACE (Negative); URINE LEUKOCYTES NEGATIVE (Negative); URINE NITRITE NEGATIVE (Negative); URINE PROTEIN NEGATIVE (Negative); URINE SPECIFIC GRAVITY 1.015 (1.005-1.030); URINE UROBILINOGEN 0.2 E.U./dl (0.2-1.0)
--- NOTE | 2020-02-25 21:16 | NUR ---
PT. LETHARGIC, UP IN CHAIR, SETUP BREAKFAST. CALLED TO ROOM DR. WHITE NOTED PT APPEARING UNCONSCIOUS. PT. ASSESSED TO BE BREATHING, PULSES INTACT, VSS. RAPID RESPONSE CALLED. PT. TRANSFERED BED, PT. REGAINED CONSCIOUSNESS WITHIN MINUTES. STAT PROCUDRES DONE, NO ABNORMAILITES FOUND. PT'S DAUGHTER VERY INVOLVED WITH CARE. EXPLAINED POC, PROVIDED LAST 18 HOURS OF DOCUMENTED VS, ANSWERED QUESTIONS AND REASSURED CARE. SPOKE TO DR. CH MULTIPLE TIMES THROUGHOUT THE SHIFT AND HE SPOKE TO PT. AGAIN AT SHIFT CHANGE. CALL LIGHT AND PERSONAL BELONGINGS PLACED WITHIN REACH. PT. TRANSFERED BACK TO BED, STRAIGHT CATHED TO OBTAIN UA SAMPLE. PT. TURNED TO SIDE WITH WEDGE AND ENCOURAGED DAUGHTER TO NOT REMOVE TO PREVENT SKIN BREAKDOWN.
[2020-02-26] VITALS (7 sets, daily range): BP systolic 136–176; BP diastolic 63–88
[2020-02-26 04:14] LABS: HEMATOCRIT 30.6 % (37.0-47.0); HEMOGLOBIN 10.2 gm/dL (12.0-15.0); MCH 29.8 pg (26.0-34.0); MCHC 33.2 g/dL (28.0-37.0); MCV 89.6 fL (80.0-100.0); MPV 8.7 fl. (7.2-11.1); RBC 3.42 mil/uL (4.20-5.00); RDW-CV 13.6 % (10.5-14.5); WBC 3.9 thou/uL (4.0-11.0)
--- NOTE | 2020-02-26 04:34 | NUR ---
PT ALERT, AT 2055 PT BP 123/48 - DR. CH CONTACTED, ORDERS GIVEN FOR NS 500ML BOLUS PLUS MAY GIVE ANOTHER 500ML BOLUS IF BP <140's systolic and 70-80's diastolic. At 99 BP 136/63, 2ND 500ML BOLUS GIVEN ORDERED. CONTINUOUS IV FLUIDS INFUSING AT 80ML/HR ORDERED. BP RECHECKED Q2H ORDERED. PT HAS USED CALL LIGHT APPROPRIATELY THIS SHIFT. PT REPOSITIONED Q2H, HOURLY ROUNDINGS COMPLETE, WILL CONTINUE TO MONITOR.
[2020-02-26 04:39] LABS: ALBUMIN 2.7 g/dL (3.4-5.0); CALCIUM 7.8 mg/dL (8.5-10.1); CREATININE 1.2 mg/dL (0.6-1.3); POTASSIUM 3.9 mmol/L (3.5-5.1); TOTAL BILIRUBIN 0.4 mg/dL (<0.1-1.0); TOTAL PROTEIN 5.9 g/dL (6.4-8.2)
--- NOTE | 2020-02-26 19:21 | NUR ---
PT. UP TO CHAIR SEVERAL TIMES, BP MAINTAINED WITHIN PHYSICIAN PARAMETERS, DAUGHTER ASSISTED WITH CARE MOST OF SHIFT, CALL LIGHT AND PERSONAL BELONGINGS PLACED WITHIN REACH. PT. IN BED, RESTING WITH EYES OPEN AT SHIFT CHANGE.
[2020-02-27] VITALS: BP 181/75
[2020-02-27 03:57] VITALS: BP 176/80
[2020-02-27 04:11] LABS: HEMATOCRIT 31.7 % (37.0-47.0); HEMOGLOBIN 10.6 gm/dL (12.0-15.0); MCH 29.7 pg (26.0-34.0); MCHC 33.3 g/dL (28.0-37.0); MCV 89.2 fL (80.0-100.0); MPV 8.6 fl. (7.2-11.1); RBC 3.55 mil/uL (4.20-5.00); RDW-CV 13.6 % (10.5-14.5); WBC 4.2 thou/uL (4.0-11.0)
[2020-02-27 04:36] LABS: ALBUMIN 2.8 g/dL (3.4-5.0); CALCIUM 8.2 mg/dL (8.5-10.1); MAGNESIUM 1.9 mg/dL (1.8-2.4); POTASSIUM 3.7 mmol/L (3.5-5.1); TOTAL BILIRUBIN 0.4 mg/dL (<0.1-1.0); TOTAL PROTEIN 6.1 g/dL (6.4-8.2)
--- NOTE | 2020-02-27 05:40 | NUR ---
Pt BP remains high overnight, SBP 170-180's. Pt given sched BP meds beginning of shift. Page hospitalist at 0400 as pt BP remains high, ordered to give sched BP meds earlier. Pt still have facial droop and R sided weakness. Pt incontinent of urine. Safety precaution in placed, call light within reach, will continue POC.
--- NOTE | 2020-02-27 07:20 | NUR ---
CHANGE OF SHIFT REPORT GIVEN PATIENT SEEN AT BEDSIDE, IN BED ASLEEP ASSUIMED PATIENT CARE
[2020-02-27 08:00] VITALS: BP 156/72
--- NOTE | 2020-02-27 11:51 | NUR ---
CM INFORMED DURING PRIME ROUNDING OF THE PLAN OF CARE FOR THE PT. PHYSICIAN INFORMS THAT PT IS MEDICALLY STABLE. PLAN TO CONTINUE TO MONITOR PT'S BP. PLAN TO D/C PT TO INPT ACUTE REHAB UNIT PENDING INSURANCE AUTH. CM WILL REMAIN AVAILABLE TO ASSIST AND FOLLOW NEEDED.
[2020-02-27 12:23] VITALS: BP 162/68
[2020-02-27 16:56] VITALS: BP 181/86
[2020-02-27 20:30] VITALS: BP 194/82
[2020-02-28] VITALS: BP 161/88
[2020-02-28 04:00] VITALS: BP 127/73
--- NOTE | 2020-02-28 04:52 | NUR ---
ASSUMED PATIENT CARE AT 1900. PATIENT ALERT TO SELF. MANAGED WATER BOTTLE WITH MINIMAL HELP. TOOK PILLS 1-2 AT A TIME WITH SIPS OF WATER. NO COMPLAINTS OF PAIN OR DISCOMFORT NOTED. PERFORMING ARTS TECHNICIANS AND HOURLY ROUNDING COMPLETED CHARTED.
--- NOTE | 2020-02-28 11:43 | NUR ---
CM INFORMED DURING PRIME ROUNDING OF THE PLAN OF CARE FOR THE PT. INPT ACUTE REHAB INSURANCE AUTH REMAINS PENDING. PT MEDICALLY STABLE TO D/C TO INPT ACUTE REHAB PER PHYSICIAN. CM WILL REMAIN AVAILABLE TO ASSIST AND FOLLOW NEEDED.
[2020-02-28 13:50] VITALS: BP 124/72
[2020-02-28] MEDS ORDERED: NORVASC5 MG PO (16:02)
[2020-02-28] MEDS ORDERED: VITAMIN C1000 MG PO (16:02)
[2020-02-28] MEDS ORDERED: PLAVIX 75 MG TA75 M1 PO (16:02)
[2020-02-28] MEDS ORDERED: VITAMIN D325 MCG PO (16:02)
[2020-02-28] MEDS ORDERED: FISH OIL 1,001000 M2 PO (16:02)
--- NOTE | 2020-02-28 16:18 | NUR ---
PT'S DAUGHTER REFUSED MRI.
[2020-02-28 17:01] VITALS: BP 161/78
[2020-02-28 17:04] VITALS: BP 161/78
== END 2020-02-28 19:45 | DRG 64 ==
LOC: M.ERS 11:07 → M.TBA-ER 12:11 → M.2W 12:11
PROVIDERS: Family Medicine; Internal Medicine; ADMIT Internal Medicine; ATTEND Internal Medicine
DX: I63.81 Other cerebral infarction due to occlusion or stenosis of small artery (principal); G93.41 Metabolic encephalopathy; G81.91 Hemiplegia, unspecified affecting right dominant side; R47.81 Slurred speech; R13.10 Dysphagia, unspecified; R47.01 Aphasia; Z20.822 Contact with and (suspected) exposure to COVID-19; I16.0 Hypertensive urgency; I10 Essential (primary) hypertension; Z79.899 Other long term (current) drug therapy; Z88.0 Allergy status to penicillin; Z88.8 Allergy status to other drugs, medicaments and biological substances; Z86.73 Personal history of transient ischemic attack (TIA), and cerebral infarction without residual deficits

== ENCOUNTER 2020-02-28 15:21 | Inpatient (IN) | payer MEDICARE ==
[~2020-02-28] VITALS: Ht 162.6 cm; Wt 76.2 kg
--- NOTE | ~2020-02-28 | PROC ---
[address] [address] PROCEDURE REPORT Name: WANG SMITH Room: [address] ADM IN M.R.#: [id number] Admission: 02/28/20 Attend Phys: Kenji Alarcon MD Discharge: Date of : 47 Report #: [id number] THIS REPORT FOR: cc: Amy Mejia Linda J. DO ~ [facility],Medical Records Staff For GI report, please see the Provation report in Perceptive 7 content. By: [id number] Records Staff [facility] /LUIS
[2020-02-28] MEDS ORDERED: VITAMIN D325 MCG PO (16:02)
[2020-02-28] MEDS ORDERED: FISH OIL 1,001000 M2 PO (16:02)
[2020-02-28] MEDS ORDERED: VITAMIN C1000 MG PO (16:02)
[2020-02-28] MEDS ORDERED: NORVASC5 MG PO (16:02)
[2020-02-28] MEDS ORDERED: PLAVIX 75 MG TA75 M1 PO (16:02)
[2020-02-28 21:30] VITALS: BP 153/86
[2020-02-29 04:17] LABS: CALCIUM 8.7 mg/dL (8.5-10.1); CREATININE 1.1 mg/dL (0.6-1.3); HEMATOCRIT 33.9 % (37.0-47.0); HEMOGLOBIN 11.4 gm/dL (12.0-15.0); MCH 29.7 pg (26.0-34.0); MCHC 33.7 g/dL (28.0-37.0); MCV 88.3 fL (80.0-100.0); MPV 8.6 fl. (7.2-11.1); POTASSIUM 3.7 mmol/L (3.5-5.1); RBC 3.85 mil/uL (4.20-5.00); RDW-CV 13.9 % (10.5-14.5); WBC 4.4 thou/uL (4.0-11.0)
--- NOTE | 2020-02-29 06:58 | NUR ---
PT ARRIVED FROM TELE AROUND 1944. PT DAUGHTER AT BEDSIDE AT THIS TIME TO SEE THE TRANSFER AND TO SAY GOODBYE TO MOTHER. NO C/O PAIN OR DISCOMFORT. ASSESSMENT COMPLETED CHARTED. UNABLE TO MAKE NEEDS KNOWN. [id number] COMPLETED CHARTED. VERY DIFFICULT TO COMMUNICATE, UNDERSTANDS AND FOLLOWS COMMANDS. WILL CONTINUE TO MONITOR.
[2020-02-29 08:00] VITALS: BP 171/87
--- NOTE | 2020-02-29 14:48 | NUR ---
INITIAL ASSESSMENT: PATIENT ADMITTED TO THE [facility] ACUTE REAB UNIT WITH A DIAGNOIS OF CVA. PT'S SON AT THE BEDSIDE AND HE ASSIST WITH CM ASSESSEMENT PT HAS EXPRESSIVE APHASIA. PT A&O, AND NORMALLY INDEPENDENT WITH ADL'S. PT RESIDES AT HOME WITH SPOUSE, DTR, AND JESSICA. PRIOR TO ADMIT PT USED CANE FOR MOBILITY. PT HAS 0 HX OF HH OR SNF. PT HAS BEEN DOING OUTPATIENT PHYSICIAL THERAPY PRIOR TO ADMIT. CM ORIENTED PT AND HER SON TO THE REHAB UNIT AND PROCESSES, RESIDENTS RIGHTS INFO, TEAM CONFRENCE, AND TO THE ROLE OF CM. CM WILL REMAIN AVAILABLE TO ASSIST AND FOLLOW NEEDED.
--- NOTE | 2020-02-29 19:35 | NUR ---
AWAKENED FOR VITAL SIGNS AND REASSESSMENT. APHASIC. CALL LIGHT WITHIN REACH. DENIES DISCOMFORT. DISCUSSED MELATONIN WITH [place]. PATIENT SAID YES TO SUGGESTION OF GIVING IT SOME CONSIDERATION.
[2020-02-29 19:40] VITALS: BP 169/87
--- NOTE | 2020-03-01 05:24 | NUR ---
PATIENT DIDN'T WANT TO TAKE MELATONIN. RESTED QUIETLY IN BETWEEN REPOSITIONING PATIENT SIDE TO SIDE. INCONTINENT OF URINE. VEENA CARE GIVEN EACH TIME. TAKES MEDICATIONS CRUSHED IN APPLESAUCE. HOURLY ROUNDING IN PROGRESS.
[2020-03-01 08:00] VITALS: BP 128/64
--- NOTE | 2020-03-01 09:17 | NUR ---
Nutrition: Pt admitted to rehab with Lt CVA. Wt: 175%. Diet: regular. Alb 28., prealb 14.9. Pt is aphasic. Meds, PMHx noted. Low risk.
[2020-03-01 19:25] VITALS: BP 156/54
--- NOTE | 2020-03-01 19:25 | NUR ---
SITTING UP IN CHAIR VISITING WITH SON MARTIN. DENIES DISCOMFORT. CALL LIGHT WITHIN REACH.
--- NOTE | 2020-03-02 05:20 | NUR ---
INCONTINENT OF URINE. VEENA CARE GIVEN. REPOSITIONED SIDE TO SIDE THROUGHOUT THE NIGHT. HOURLY ROUNDING IN PROGRESS.
[2020-03-02 08:48] VITALS: BP 187/84
[2020-03-02 10:39] VITALS: BP 128/68
--- NOTE | 2020-03-02 16:24 | NUR ---
PT WORKED WITH THERAPIES. UP WITH 1 TO 2 ASSIST. BM TODAY. SON AT BEDSIDE. DENIES PAIN. APHAGIA. SOME DIFFICULTY MAKING NEEDS KNOWN.
[2020-03-02 20:00] VITALS: BP 135/64
--- NOTE | 2020-03-03 06:46 | NUR ---
ASSUMED PT CARE AT 1930. ASSESSMENT COMPLETED CHARTED. PT UNABLE TO MAKE NEEDS KNOWN EFFECTIVELY DUE TO APHASIA. NO C/O PAIN OR DISCOMFORT. [id number] COMPLETED CHARTED. BRIEF WORN IN BED PER PT REQUEST. WILL CONTINUE TO MONITOR.
[2020-03-03 07:22] VITALS: BP 129/74
--- NOTE | 2020-03-03 16:21 | NUR ---
PT U9P WITH WALKER, GAIT BELT, AND MAX ASSIST X2. INCONT OF URINE. PERICARE AND BRIEF CHANGED PRN. DENIES PAIN. DAUGHTER AT BEDSIDE. CONTINUED APHAGIA BUT BETTER ABLE TO MAKE NEEDS KNOWN.
[2020-03-03 19:00] VITALS: BP 156/69
--- NOTE | 2020-03-04 05:42 | NUR ---
ASSUMED CARES AT 1920. ALERT. EXPRESSIVE APHASIA. PILLS CRUSHED IN APPLESAUCE. URINARY INCONTINENCE. MELATONIN GIVEN PER DTR REQUEST. DAUGHTER STAYED UNTIL 2029 DESPITE KNOWING VISITING HRS HAD ENDED. PT TURNED EVERY 2 HRS. SLEPT OFF AND ON. CALL LIGHT IN REACH AND BED ALARM ON.
[2020-03-04 07:41] VITALS: BP 146/65
--- NOTE | 2020-03-04 16:19 | NUR ---
PT UP WITH GAIT BELT AND ASSIST X2. R SIDED WEAKNESS. REQUIRES FREQUENT REMINDERS TO MOVE HER LEGS DURING TRANSFERS. ABLE TO BETTER COMMUNICATE NEEDS. DENIES PAIN. CHOKED ON LIQUID COLACE THIS AM. DR PATEL NOTIFIED. INCONT OF URINE. FALL PREACUTIONS IN PLACE INCLUDING BED/CHAIR ALARM. CALL LIGHT IN REACH. DAUGHTER AT BEDSIDE.
[2020-03-04 17:33] VITALS: BP 175/86
[2020-03-04 20:00] VITALS: BP 159/79
--- NOTE | 2020-03-05 04:50 | NUR ---
ASSUMED CARES AT 1920. ALERT. TRIES TO EXPRESS SELF BUT EASILY GETS FRUSTRATED DUE TO APHASIA. RIGHT SIDE WEAKNESS. PILLS CRUSHED WITH APPLESAUCE. MELATONIN GIVEN PER DTR REQUEST. DAUGHTER ALSO ASKED THAT NURSING NOT TURN PT FREQUENTLY OVERNIGHT SO PT COULD REST. URINARY INCONTINENCE. SLEPT MOST OF THE NIGHT. CALL LIGHT IN REACH AND BED ALARM ON.
[2020-03-05 07:31] VITALS: BP 145/69
--- NOTE | 2020-03-05 14:16 | NUR ---
CM SPOKE TO THE PT AND HER SON TO DISCUSS ANY QUESTIONS OR CONCERNS THAT THEY MAY HAVE FOR THIS WEEKS TEAM CONFRENCE MEETING. PT AND SON HAVE NO QUESTIONS OR CONCERNS AT THIS TIME. CM TO F/U WITH PT AND HER SON AFTER THIS WEEKS MEETING.
--- NOTE | 2020-03-05 16:04 | NUR ---
PT WORKED WITH THERAPIES. UP WITH ASSIST X2 AND GAIT BELT. CONTINUED R SIDED WEAKNESS AND APHAGIA. INCONT OF URINE. SON AT BEDSIDE. FALL PRECAUTIONS IN PLACE INCLUDING BED/CHAIR ALARMS. CALL LIGHT IN REACH.
[2020-03-05 19:00] VITALS: BP 143/74
--- NOTE | 2020-03-06 04:54 | NUR ---
ASSUMED CARES AT 1920. ALERT. APHASIC. GETS FRUSTRATED TRYING TO MAKE NEEDS KNOWN. PILLS CRUSHED IN APPLESAUCE. MELATONIN GIVEN. URINARY INCONTINENCE. DAUGHTER CALLED AT 2300 ASKING ABOUT PT'S BP AND WHAT MEDS WERE GIVEN. PT BECAME RESTLESS AFTER MIDNIGHT. COULD NOT GET COMFORTABLE IN BED DESPITE MANY ATTEMPTS TO READJUST IN BED. PT FRUSTRATED THAT COULD NOT EXPRESS SELF FULLY. SLEPT SOME. CALL LIGHT IN REACH AND BED ALARM ON.
[2020-03-06 07:40] VITALS: BP 141/72
--- NOTE | 2020-03-06 17:43 | NUR ---
PATIENT COMPLETED THERAPIES ORDERED. UP WITH MAX ASSISTANCE; GAIT BELT AND WALKER. INCONTINENT OF URINE THIS SHIFT BUT DID VOID PER BSC ALSO. NO BM NOTED THIS SHIFT, PRUNE JUICE GIVEN. SON HERE AT BEDSIDE THIS SHIFT, UPDATES GIVEN.
[2020-03-06 19:00] VITALS: BP 150/86
[2020-03-07 04:00] LABS: HEMATOCRIT 33.3 % (37.0-47.0); HEMOGLOBIN 11.1 gm/dL (12.0-15.0); MCH 29.7 pg (26.0-34.0); MCHC 33.4 g/dL (28.0-37.0); MPV 8.7 fl. (7.2-11.1); RBC 3.74 mil/uL (4.20-5.00); RDW-CV 13.4 % (10.5-14.5); WBC 3.4 thou/uL (4.0-11.0)
[2020-03-07 04:09] LABS: CALCIUM 9.1 mg/dL (8.5-10.1); CREATININE 1.2 mg/dL (0.6-1.3); POTASSIUM 4.2 mmol/L (3.5-5.1)
--- NOTE | 2020-03-07 05:01 | NUR ---
ASSUMED PT CARE AT 1929. PT VOIDED PER BSC, TRANSFERRED TO BED WITH MAX ASSIST OF 2, GAITBELT AND WALKER. PT ALERT. APHASIC. PT TOOK PILLS CRUSHED IN APPLESAUCE WITHOUT DIFFICULTY. PT ASKED IF SHE WANTED SLEEPING PILLS AND SHE INDICATED YES. MELATONIN GIVEN AT 2033. PT TURNED Q2. PT SLEPT WELL OVERNIGHT. CALL LIGHT IN REACH, HOURLY ROUNDING IN PROGRESS, WILL CONTINUE TO MONITOR.
[2020-03-07 07:45] VITALS: BP 135/66
--- NOTE | 2020-03-07 15:47 | NUR ---
AM ASSESSMENT AND VITAL SIGNS COMPLETED DOCUMENTED. PT WORKS WITH ALL THERAPIES BUT CONTINUES TO HAVE DIFFICULTY AITH APHASIA. PT IS A MAX ASSIST OF TWO WITH TRANSERS. PT IS USUALLY CONTINENT OF BOWEL BUT ALMOST ALWAYS INCONTINENT OF BLADDER. PT'S SON IS AT THE BEDSIDE AND IS HELPFUL. FALL PRECAUTIONS AND HOURLY ROUNDING CONTINUE.
[2020-03-07 19:47] VITALS: BP 150/75
--- NOTE | 2020-03-08 06:12 | NUR ---
ASSUMED PT CARE AT 1930. PT ALERT AND ORIENTED X4, POLITE AND COOPERATIVE WITH CARES. APHASIC. PT CAN EXPRESS NEEDS GIVEN ENOUGH TIME. TAKES PILLS CRUSHED IN APPLESAUCE WITHOUT DIFFICULTY. PT TURNED Q2. SLEPT WELL OVERNIGHT. INCONTINENT OF URINE X4. CALL LIGHT IN REACH, BED ALARM ON FOR SAFETY. HOURLY ROUNDING COMPLETE.
[2020-03-08 07:44] VITALS: BP 137/65
--- NOTE | 2020-03-08 15:33 | NUR ---
1200 ASSUMED CARE OF PATIENT. AGREE WITH AM ASSESSMENT.
--- NOTE | 2020-03-08 17:05 | NUR ---
ALERT AND ORIENTED X4 BUT HAS EXPRESSIVE APHASIA. LEFT ARM FLACCID. UP WITH SPECIAL LEFT HAND CONTROL ON WALKER, GAIT BELT AND 2 ASSIST. CONTINENT OF BLADDER AND BOWELS TODAY. HAS FADING RASH ON TORSO. LEFT MESSAGE FOR NEUROLOGY CONSULT. USES CALL LIGHT FOR ASSIST. FALL PRECAUTIONS IN PLACE. BED ALARM AND CHAIR ALARM USED.
[2020-03-08 19:30] VITALS: BP 151/77
--- NOTE | 2020-03-09 05:46 | NUR ---
ASSUMED CARE AT 1920. ALERT. APHASIC. RIGHT SIDE WEAKNESS. REFUSED PAIN MEDS. MAX ASSIST X 2 PERSON. GAIT BELT AND WALKER. UP TO BSC. TOOK PILLS CRUSHED IN APPLESAUCE. SMALL NOSE BLEED LASTING FEW MINUTES. PT TURNED ONTO SIDES OVERNIGHT. AT TIMES HAD DIFFICULTY GETTING COMFORTABLE. SLEPT SOME. CALL LIGHT IN REACH AND BED ALARM ON.
[2020-03-09 07:40] VITALS: BP 119/64
[2020-03-09 10:00] VITALS: BP 124/73
--- NOTE | 2020-03-09 16:18 | NUR ---
PATIENT COMPLETED THERAPIES ORDERED. SON AT BEDSIDE. PATIENT UP IN WHEELCHAIR ALL MORNING AND AFTERNOON. NO COMPLAINTS OF PAIN. PATIENTS SON BROUGHT PATIENTS KNEE BRACES, PATIENT WALKED THE [place]UDLEY WITH THERAPY. INCONTINENT X 1 THIS AM OTHERWISE USING BSC. NO BM NOTED THIS SHIFT UP WITH MAX ASSISTANCE AND USE OF GAIT BELT AND WALKER. AWAITING NEUROLOGY TO ROUND REGARDING RASH AND POSSIBLE ALLERY TO [facility].
[2020-03-09 20:00] VITALS: BP 142/73
[2020-03-10 07:17] VITALS: BP 121/64
--- NOTE | 2020-03-10 16:28 | NUR ---
TEAM CONFRENCE MEETING HELD THIS WEEK. PT AND HER SON INFORMED OF THE MEETING AND PLAN TO RE-TEAM AND HAVE THE PT REMAIN ON THE UNIT FOR ANOTHER WEEK TO CONTINUE THERAPIES. PT AND SON IN AGREEMENT WITH THE PLAN. CM WILL REMAIN AVAILABLE TO ASSIST AND FOLLOW NEEDED.
--- NOTE | 2020-03-10 17:27 | NUR ---
ASSESSMENT COMPLETED DOCUMENTED THIS MORNING. PATIENT HAS BEEN ON THE BSC MULTIPLE TIMES TODAY WITH VERY SMALL AMOUNTS OF URINE VOIDED, WELL 3X INCONT WITH BRIEF IN PLACE. DAUGHTER AT THE BEDSIDE AND VERY ATTENTIVE. X2 ASSIST FOR TRANSFERS WITH GB AND FWW.
[2020-03-10 20:00] VITALS: BP 142/66
--- NOTE | 2020-03-11 04:49 | NUR ---
ASSUMED PT CARE AT 1930. PT SITTING UP IN RECLINER VISITING WITH DAUGHTER. TRANSFERED TO BED WITH GB, WALKER, AND ASSIST OF TWO. ABLE TO EXPRESS HERSELF GIVEN TIME. PT SLEPT WELL OVERNIGHT. NO C/O PAIN. VOIDED PER PULLUPS. CALL LIGHT IN REACH, BED ALARM ON FOR SAFETY. HOURLY ROUNDING IN PROGRESS, WILL CONTINUE TO MONITOR.
[2020-03-11 07:35] VITALS: BP 144/68
--- NOTE | 2020-03-11 17:29 | NUR ---
ASSESSMENT COMPLETED DOCUMENTED THIS MORNING. DAUGHTER AT THE BEDSIDE ALL DAY AND HAS PROVIDED SUPPORT AND EVEN ASSISTED WITH ADL'S. PATIENT ASSISTED UP TO RECLINER AT THE BEDSIDE AND HAS HAD NO C/O, OR CHANGES IN CONDITION TODAY.
[2020-03-11 20:00] VITALS: BP 174/79
--- NOTE | 2020-03-12 05:10 | NUR ---
ASSUMED PT CARE AT 1930. PT UP IN RECLINER VISITING WITH DAUGHTER. TRANSFERRED TO BED WITH GB, WALKER, AND ASSIST OF TWO. PT FRUSTRATED WITH HER INABILITY TO FIND HER WORDS. DENIED PAIN. VOIDED AND STOOL X1 ON BSC. VOIDED PER PULLUPS OVERNIGHT. CALL LIGHT IN REACH, BED ALARM ON FOR SAFETY. HOURLY ROUNDING IN PROGRESS, WILL CONTINUE TO MONITOR.
[2020-03-12 08:00] VITALS: BP 140/71
--- NOTE | 2020-03-12 16:15 | NUR ---
ALERT AND ORIENTED X4 BUT HAS EXPRESSIVE APHASIA. UP WITH 2 ASSIST, GAIT BELT AND WALKER TO BEDSIDE COMMODE. INCONTINENT AT TIMES, WEARS BRIEFS. DENIES PAIN. TAKES PILLS CRUSHED IN APPLESAUCE. CALL LIGHT WITHIN REACH. FALL PRECAUTIONS IN PLACE. BED ALARM AND CHAIR ALARM USED.
[2020-03-12 20:00] VITALS: BP 137/67
--- NOTE | 2020-03-13 05:29 | NUR ---
ASSUMED CARES AT 1920. ALERT. EXPRESSIVE APHASIA. CVA WITH RIGHT SIDED WEAKNESS. TOOK PILLS CRUSHED WITH APPLESAUCE. URINARY INCONTINENCE. PULLUPS. SLEPT WELL. CALL LIGHT IN REACH AND BED ALARM ON.
[2020-03-13 08:00] VITALS: BP 131/69
--- NOTE | 2020-03-13 16:15 | NUR ---
PATIENT COMPLETED THERAPIES ORDERED. AT BEDSIDE. PATIENT UP WITH MAX ASSISTANCE TO BSC AND WHEELCHAIR, GAIT BELT AND WALKER UTILIZED. BM NOTED TH SHIFT, INCONITNENT OF URINE AT TIMES BUT DOES USE BSC. PRN TYLENOL GIVEN PRIOR TO THERAPY THIS AM, PER DR. PATEL ORDERS RECEIVED GIVE ONE TIME DOSE OF IBUPROFEN TOMORROW AM PRIOR TO THERAPY.
[2020-03-13 20:00] VITALS: BP 144/75
[2020-03-14 04:46] LABS: HEMATOCRIT 30.7 % (37.0-47.0); HEMOGLOBIN 10.3 gm/dL (12.0-15.0); MCH 29.7 pg (26.0-34.0); MCHC 33.4 g/dL (28.0-37.0); MCV 88.8 fL (80.0-100.0); MPV 8.2 fl. (7.2-11.1); RBC 3.45 mil/uL (4.20-5.00); RDW-CV 13.3 % (10.5-14.5); WBC 4.6 thou/uL (4.0-11.0)
--- NOTE | 2020-03-14 04:56 | NUR ---
ASSUMED CARES AT 1920. ALERT. APHASIC. DIFFICULTY WITH WORD FINDING AT TIMES. PILLS CRUSHED IN APPLESAUCE. MAX ASSIST X 2 PERSON. GAIT BELT AND WALKER. NEEDS MUCH CUEING. UP TO BSC. SLEPT MOST OF THE NIGHT. CALL LIGHT IN REACH AND BED ALARM ON.
[2020-03-14 05:10] LABS: CALCIUM 8.6 mg/dL (8.5-10.1); CREATININE 1.2 mg/dL (0.6-1.3); POTASSIUM 3.7 mmol/L (3.5-5.1)
[2020-03-14 07:40] VITALS: BP 137/65
--- NOTE | 2020-03-14 16:06 | NUR ---
TEAM CONFRENCE MEETING HELD TODAY. PT AND SPOUSE INFORMED OF THE MEETING AND PLAN TO RE-TEAM AND HAVE THE PT REMAIN ON THE UNIT FOR ANOTHER WEEK. PT ANS SPOUSE IN AGREEMENT WITH THE PLAN. PT PROGRESSING TOWARDS GOALS, BUT BARRIERS ARE RIGHT HEMIPARESIS, ARTHRITIS BILAT KNEES, DECREASED STANDING BALANCE, FETIGUE, AND APHASIA. CM WILL REMAIN AVAILABLE TO ASSIST AND FOLLOW NEEDED.
--- NOTE | 2020-03-14 16:08 | NUR ---
PATIENT COMPLETED THERAPIES ORDERED THIS SHIFT. AT BEDSIDE. PATIENT INCONTINENT OF URINE AT TIMES BUT DOES USE BSC. LARGE BM NOTED. PATIENT WAS BLADDER SCANNED PER DR. BREWER'S REQUEST, NO RESIDUAL AFTER VOID. PATIENT REFUSED IBUPROFEN THIS AM PRIOR TO THERAPY, DR. PATEL AWARE. PATIENT UP MAX ASSISTANCE; GAIT BELT AND WALKER.
[2020-03-14 20:16] VITALS: BP 149/85
--- NOTE | 2020-03-15 06:45 | NUR ---
ASSUMED PT CARE AT 1930. ASSESSMENT COMPLETED CHARTED. ABLE TO MAKE SOME NEEDS KNOWN WITH DIFFICULTY. NO C/O PAIN OR DISCOMFORT. RESTING IN BED COMFORTABLY AT THIS TIME. UP WITH 2 ASSIST. WILL CONTINUE TO MONITOR.
[2020-03-15 07:50] VITALS: BP 125/61
--- NOTE | 2020-03-15 13:43 | NUR ---
PATIENTS HERE AT BEDSIDE. PATIENT AND UPDATED ON PLAN OF CARE. PATIENTS HERE FOR PHYSICIAN ROUNDING, DR. PATEL AND DR. BREWER SAW PATIENT.
--- NOTE | 2020-03-15 16:06 | NUR ---
PATIENT COMPLETED THERAPIES ORDERED. AT BEDSIDE. PATIENT INCONTINENT OF URINE THIS SHIFT BUT DOES USE BSC WELL. BM NOTED THIS SHIFT. UP WITH MAX ASSISTANCE OF 2, GAIT BELT AND WALKER.
[2020-03-15 19:50] VITALS: BP 134/71
[2020-03-16 08:00] VITALS: BP 137/63
--- NOTE | 2020-03-16 16:50 | NUR ---
ALERT AND ORIENTED X4 BUT HAS EXPRESSIVE APHASIA. UP WITH 2 ASSIST, GAIT BELT AND WALKER TO BEDSIDE COMMODE OR CHAIR. TAKES PILLS CRUSHED AND IN APPLESAUCE. USES BEDSIDE COMMODE BUT IS STILL INCONTINENT AT TIMES. USES TYLENOL FOR PAIN. ON FALL PRECAUTIONS. BED ALARM AND CHAIR ALARMS USED. USES CALL LIGHT WITHIN REACH.
[2020-03-16 20:30] VITALS: BP 151/69
--- NOTE | 2020-03-16 20:40 | NUR ---
RESTING QUIETLY IN BED AND LISTENING TO RECORDED MUSIC OF HER AND FAMILY SINGING. DENIES DISCOMFORT. CALL LIGHT WITHIN REACH. TOOK MEDICATIONS CRUSHED IN APPLESAUCE.
--- NOTE | 2020-03-17 05:15 | NUR ---
RESTED ON/OFF. INCONTIENT OF URINE. VEENA CARE GIVEN. HOURLY ROUNDING IN PROGRESS.
[2020-03-17 07:45] VITALS: BP 140/96
--- NOTE | 2020-03-17 16:15 | NUR ---
ALERT AND ORIENTD X4 BUT HAS EXPRESSIVE APHASIA. DENIES PAIN BUT TYLENOL GIVEN PRIOR TO THERAPY DUE TO THERAPY REQUEST. UP WITH 1-2 ASSIST, GAIT BELT AND WALKER. SOMETIMES INCONTINENT OF URINE BUT CONTINENT OF BOWELS. TAKES PILLS CRUSHED IN APPLESAUCE. USES CALL LIGHT WITHIN REACH. BED ALARM AND CHAIR ALARMS USED.
[2020-03-17 20:30] VITALS: BP 167/75
--- NOTE | 2020-03-17 20:30 | NUR ---
RESTING QUIETLY IN BED AND LISTENING TO TAPE OF HER PLAYING THE PIANO. CALL LIGHT WITHIN REACH. DENIES DISCOMFORT. APHASIC AND AT TIMES HAS DIFFICULTY COMMUNICATING. SOMETIMES SAYS YES AND MEANS NO.
--- NOTE | 2020-03-18 05:18 | NUR ---
RESTED QUIETLY. ASSISTED WTIH REPOSITIONING. INCONTINENT OF URINE. VEENA CARE GIVEN. HOURLY ROUNDING IN PROGRESS.
[2020-03-18 07:45] VITALS: BP 131/68
[2020-03-18 08:00] VITALS: BP 131/68
--- NOTE | 2020-03-18 17:41 | NUR ---
ALERT AND ORIENTED X4 WITH EXPRESSIVE APHASIA. VOLTAREN GEL USED ON RIGHT KNEE AND HELPFUL. UP WITH 1-2 ASSIST, GAIT BELT AND WALKER. USES BEDSIDE COMMODE WITH OCCASSIONAL INCONTINENCE OF URINE IN BRIEF. HAS RIGHT SIDED WEAKNESS FROM CVA. FALL PRECAUTIONS IN PLACE. BED ALARM AND CHAIR ALARM USED.
[2020-03-18 20:00] VITALS: BP 144/72
--- NOTE | 2020-03-19 05:19 | NUR ---
ASSUMED CARES AT 1920. ALERT. APHASIC. VOLTAREN GEL TO RIGHT KNEE. PILLS CRUSHED IN APPLESAUCE. MAX ASSIST 2 PERSON. GB AND WALKER. UP TO BSC BUT URINARY INCONTINENCE WELL. HAD DIFFICULTY GETTING COMFORTABLE AND DID NOT SLEEP WELL. CALL LIGHT IN REACH AND BED ALARM ON.
[2020-03-19 08:00] VITALS: BP 145/81
--- NOTE | 2020-03-19 16:01 | NUR ---
CM SPOKE TO THE PT TO DISCUSS ANY QUESTIONS OR CONCERNS THAT SHE MAY HAVE FOR WEDNESDAYS TEAM CONFRENCE MEETING. PT HAS NO QUESTIONS OR CONCERNS AT THIS TIME. PT'S SPOUSE STEPPED OUT AND CM WILL F/U WITH HIM TO SE IF HE HAS ANY QUESTIONS OR CONCERNS. CM WILL REMAIN AVAILABLE TO ASSIST AND FOLLOW NEEDED.
[2020-03-19 19:40] VITALS: BP 117/52; BP 138/70
--- NOTE | 2020-03-20 05:05 | NUR ---
ASSUMED CARES AT 1920. ALERT. EXPRESSIVE APHASIA. GETS FRUSTRATED DUE TO DIFFICULTY TRYING TO MAKE NEEDS KNOWN. MAX ASSIST X 2 PERSON. GAIT BELT AND WALKER. UP TO BSC. URINARY INCONTINENCE WELL. DAUGHTER CALLED AND QUESTIONS ANSWERED. SLEPT MOST OF THE NIGHT. CALL LIGHT IN REACH AND BED ALARM ON.
[2020-03-20 08:34] VITALS: BP 134/56
--- NOTE | 2020-03-20 08:40 | NUR ---
UGO CONTI AND HE DENIED HAVING QUESTIONS / CONCERNS FOR TOMORROW'S TEAM ALVAG.
--- NOTE | 2020-03-20 18:30 | NUR ---
ASSESSMENT COMPLETED DOCUMENTED THIS MORNING. PATIENT SLOW TO PROGRESS WITH THERAPY, CONTINUES TO REQUIRE MAX ASSIST OF 2 TO TRANSFER TO THE BSC AND PROVIDE TOILETING HYGIENE. PATIENT UP TO BSC X6 AND INCONT X1 TODAY OF URINE. DICLOFENAC GEL USED ON RIGHT KNEE AND LOWER LEG THIS MORNING WITH RELIEF NOTED. AT THE BEDSIDE ALL DAY.
[2020-03-20 19:29] VITALS: BP 152/81
[2020-03-21 05:01] LABS: HEMATOCRIT 30.9 % (37.0-47.0); HEMOGLOBIN 10.2 gm/dL (12.0-15.0); MCH 29.2 pg (26.0-34.0); MCHC 32.9 g/dL (28.0-37.0); MCV 88.6 fL (80.0-100.0); MPV 8.4 fl. (7.2-11.1); RBC 3.49 mil/uL (4.20-5.00); RDW-CV 13.6 % (10.5-14.5); WBC 4.2 thou/uL (4.0-11.0)
[2020-03-21 05:15] LABS: CREATININE 1.1 mg/dL (0.6-1.3); POTASSIUM 3.5 mmol/L (3.5-5.1)
--- NOTE | 2020-03-21 05:53 | NUR ---
ASSUMED PT CARE AT 1930. ASSESSMENT COMPLETED CHARTED. ABLE TO MAKE MOST NEEDS KNOWN WITH SOME DIFFICULTIES. UP WITH 2 ASSIST TO BSC AND TO BED. C/O PAIN IN RIGHT KNEE AND USED PRN VOLTAREN GEL. HAD A COUPLE INCONTIENCE EPISODES. PT RESTING IN BED AT THIS TIME. WILL CONTINUE TO MONITOR.
[2020-03-21 07:40] VITALS: BP 137/64
--- NOTE | 2020-03-21 16:02 | NUR ---
PATIENT COMPLETED THERAPIES ORDERED THIS SHIFT. PRN VOLTAREN GEL TO RYLEY KNEES X 2 THIS SHIFT. UP WITH MAX ASSISTANCE AND GAIT BELT AND WALKER. INCONTIENT THIS SHIFT X 2, PATIENT DID USE THE BSC FOR VOIDING ALSO AND DID HAVE A BM. BRACES USED FOR PT/OT. TEAM MEETING TODAY, PATIENT RETEAM.
[2020-03-21 19:00] VITALS: BP 140/59
--- NOTE | 2020-03-22 04:35 | NUR ---
ASSUMED PT CARE AT 1930. PT ALERT AND ORIENTED X4, POLITE AND COOPERATIVE WITH CARES. PRN VOLTAREN GEL TO RYLEY KNEES. MELATONIN AT HS. PT ALREADY IN BED AT SHIFT CHANGE. INCONTINENT OF URINE X3 THIS SHIFT. NO STOOL THIS SHIFT. PT ABLE TO MAKE MOST NEEDS KNOWN. CALL LIGHT IN REACH, BED ALARM ON FOR SAFETY. HOURLY ROUNDING IN PROGRESS, WILL CONTINUE TO MONITOR.
[2020-03-22 07:40] VITALS: BP 120/58
--- NOTE | 2020-03-22 15:24 | NUR ---
TEAM CONFRENCE MEETING HELD YESTERDAY. CM AND PHYSICIAN INFORMED PT AND SPOUSE OF MEETING AND PLAN TO RE-TEAM PT PENDING INSURANCE DECISION. PT PROGRESSING TOWARDS GOALS, BUT BARRIERS ARE RIGHT HEMIPARESIS, DECREASED BALANCE AND MOTOR CONTROL, AND KNEE ARTHRITIS. CM WILL REMAIN AVAILABLE TO ASSIST AND FOLLOW NEEDED.
--- NOTE | 2020-03-22 16:24 | NUR ---
PATIENT COMPLETED THERAPIES ORDERED. PATIENT UP WITH MAX ASSISTANCE OF 2,. GAIT BELT. BRACES FOR THERAPY. VOLTAREN GEL PRN USED ON RYLEY KNEES. INCONTINENT OF BLADDER X 2, VOIDED IN BSC X 5. BM NOTED THIS SHIFT. AT BEDSIDE, UPDATED ON PLAN OF CARE.
[2020-03-22 19:37] VITALS: BP 143/60
--- NOTE | 2020-03-23 05:03 | NUR ---
ASSUMED PT CARE AT 1930. PT ALERT AND ORIENTED X4, POLITE AND COOPERATIVE WITH CARES. PT FRUSTRATED WITH APHASIA, BUT CAN COMMUNICATE HER NEEDS GIVEN ENOUGH TIME. PT UP TO COMMODE TO VOID AT BEGINNING OF SHIFT WITH MAX ASSIST OF 2 AND GAIT BELT. PRN VOLTAREN GEL TO RYLEY KNEES. MELATONIN AT HS. INCONTINENT OF URINE X3 THIS SHIFT. CALL LIGHT IN REACH, BED ALARM ON FOR SAFETY. HOURLY ROUNDING IN PROGRESS, WILL CONTINUE TO MONITOR.
[2020-03-23 07:30] VITALS: BP 137/101
--- NOTE | 2020-03-23 16:13 | NUR ---
PT WORKED WITH THERAPIES. UP WITH ASSIST X2 TO BSC. DENIES PAIN. HERE TO VISIT. DAUGHTER MIHAELA CALLED AND TALKED TO ASHA CHAPARRO NURSE, AND GRZEGORZ DOMINGUEZ LIASON ABOUT HER QUESTIONS AND CONCERS.
[2020-03-23 20:00] VITALS: BP 137/63
--- NOTE | 2020-03-24 04:36 | NUR ---
ASSUMED PT CARE AT 1930. PT ALERT AND ORIENTED X4, POLITE AND COOPERATIVE WITH CARES. INCONTINENT OF URINE X5. NO STOOL THIS SHIFT. PT IS FRUSTRATED WITH HER APHASIA. CALLED OUT NUMEROUS TIMES TO BE TURNED AND HAVE HER PILLOWS ADJUSTED. PRN VOLTAREN GEL TO RYLEY KNEES. MELATONIN AT HS. CALL LIGHT IN REACH, BED ALARM ON FOR SAFETY. HOURLY ROUNDING IN PROGRESS, WILL CONTINUE TO MONITOR.
[2020-03-24 07:40] VITALS: BP 121/61
--- NOTE | 2020-03-24 16:11 | NUR ---
PATIENT UP WITH MAX ASSISTANCE; GAIT BELT AND WALKER. VOIDING PER BSC, INCONTINENT OF URINE AT TIMES. PATIENT DID HAVE BM TODAY. AT BEDSIDE. VOLTAREN GEL PRN APPLIED TO KNEES RYLEY ORDERED.
[2020-03-24 19:15] VITALS: BP 133/71
--- NOTE | 2020-03-24 19:15 | NUR ---
SITTING UP IN RECLINER. PATIENT DOESN'T HAVE ANY MUSIC TO LISTEN TO DUE TO HER TAPE PLAYER NOT WORKING. ASSISTED PATIENT WITH TURNING ON THE HALLMARK CHANNEL. CALL LIGHT WIHIN REACH. DENIES DISCOMFORT. APHASIC AND HAS DIFFICULTY MAKING NEEDS KNOWN.
--- NOTE | 2020-03-25 05:56 | NUR ---
MAX ASSIST OF TWO TO TRANSFER TO BEDSIDE COMMODE AND TO BED. RESTLESS UNTIL ABOUT 2300 AND THEN WAS ABLE TO GET TO SLEEP. INCONTINENT OF URINE X ONE DURING THE NIGHT. VEENA CARE GIVEN. HOURLY ROUNDING IN PROGRESS.
[2020-03-25 08:00] VITALS: BP 135/51
--- NOTE | 2020-03-25 16:14 | NUR ---
PATIENT UP TO CHAIR THIS MORNING INTO AFTERNOON, PATIENT REQUESTING TO GO BACK TO BED THIS EVENING. UP WITH MAX ASSISTANCE TO BSC, BM NOTED. PATIENT DID HAVE A NOSE BLEED THIS AM, Darian DOUGLAS DIPLOMATIC OFFICER NOTIFIED AND ETELVINA MOORE ORDERED. AT BEDSIDE THIS SHIFT.
[2020-03-25 20:20] VITALS: BP 128/69
--- NOTE | 2020-03-25 20:20 | NUR ---
SITTING UP IN CHAIR VISITING WITH AND WATCHING THE CHIEFS. ASSISTED WITH MAX ASSIST OF 2, GAITBELT, WALKER, CUEING TO BEDSIDE COMMODE AND THEN TO BED. VEENA CARE GIVEN. PATIENT VERY FUSSY WITH HOW SHE IS IN POSITIONED IN BED COMPOUNDED WITH UNABLE TO THOUROUGHLY ACCOMODATE HER WISHES DUE TO PATIENT'S EXPRESSIVE APHASIA. PATIENT DENIES PAIN. CALL LIGHT WITHIN REACH. TOOK MEDICATIONS CRUSHED IN APPLESAUCE FOLLOWED WITH SIPS OF WATER.
[2020-03-26 04:38] LABS: ABSOLUTE EOSINOPHILS 0.2 thou/uL (0.0-0.7); ABSOLUTE MONOCYTES 0.4 thou/uL (0.0-1.2); ABSOLUTE NEUTROPHILS 2.6 thou/uL (1.6-8.1); EOSINOPHILS 4.5 %; HEMATOCRIT 28.1 % (37.0-47.0); HEMOGLOBIN 9.2 gm/dL (12.0-15.0); LYMPHOCYTES 23.6 %; MCH 29.1 pg (26.0-34.0); MCHC 32.9 g/dL (28.0-37.0); MCV 88.5 fL (80.0-100.0); MONOCYTES 9.5 %; MPV 8.2 fl. (7.2-11.1); NUCLEATED RBCS 0 /100WBC; PLATELET COUNT* 179 thou/uL (150-400); POLYS 61.4 %; RBC 3.18 mil/uL (4.20-5.00); RDW-CV 13.7 % (10.5-14.5); WBC 4.3 thou/uL (4.0-11.0)
[2020-03-26 04:46] LABS: CALCIUM 8.6 mg/dL (8.5-10.1); CREATININE 1.1 mg/dL (0.6-1.3); POTASSIUM 3.7 mmol/L (3.5-5.1)
--- NOTE | 2020-03-26 05:30 | NUR ---
DIDN'T GET TO SLEEP UNTIL ABOUT MIDNIGHT. CALLS FREQUENTLY TO BE REPOSITIONED AND TO HAVE PILLOWS REARRANGED. PRN AFRIN GIVEN THIS MORNING FOR SMALL NOSE BLEED FROM RIGHT NOSTRIL. INCONTINENT OF URINE DURING THE NIGHT. VEENA CARE GIVEN. HOURLY ROUNDING IN PROGRESS.
[2020-03-26 07:58] VITALS: BP 138/71
--- NOTE | 2020-03-26 17:20 | NUR ---
CM SPOKE TO THE PT AND HER SPOUSE TO DISCUSS ANY QUESTIONS OR CONCERNS THAT THEY MAY HAVE FOR THIS WEEKS MEETING. PT AND SPOUSE HAVE NO QUESTIONS OR CONCERNS AT THIS TIME. CM WILL F/U WITH PT AND SPOUSE AFTER THIS WEEKS MEETING.
[2020-03-26 20:20] VITALS: BP 121/63
--- NOTE | 2020-03-26 20:35 | NUR ---
RESTING QUIETLY IN BED AND LISTENING TO MUSIC. TYLENOL GIVEN FOR COMPLAINT OF PAIN IN KNEEW. VOLTAREN GEL APPLIED TO KNEES. CALL LIGHT WITHIN REACH.
--- NOTE | 2020-03-27 05:15 | NUR ---
RESTED ON/OFF. NO FURTHER COMPLAINT OF PAIN. INCONTINENT OF URINE TWO MORE TIMES DURING THE NIGHT. VEENA CARE GIVEN. HOURLY ROUNDING IN PROGRESS.
[2020-03-27 08:00] VITALS: BP 106/65
--- NOTE | 2020-03-27 14:14 | NUR ---
AM ASSESSMENT AND VITAL SIGNS COMPLETED DOCUMENTED. PT WORKS WITH PT, OT AND ST AND CONTINUES TO PROGRESS. PT IS HAVING FEWER INCONTINENT EPISODES DURING THE DAY AND CAN USUSALLY TRANSFER WITH MOD OF ASSIST OF ONE. I SPOKE WITH PT'S DAUGHTER AND UPDATED HER. I ALSO ANSWERES SEVERAL QUESTIONS SHE HAD. PT'S IS IN THE ROOM AND IS SUPPORTIVE. FALL PRECAUTIONS AND HOURLY ROUNDING CONTINUE.
[2020-03-27 20:00] VITALS: BP 122/66
[2020-03-28 04:47] LABS: HEMATOCRIT 23.6 % (37.0-47.0); HEMOGLOBIN 7.7 gm/dL (12.0-15.0); MCH 28.8 pg (26.0-34.0); MCHC 32.8 g/dL (28.0-37.0); MCV 87.9 fL (80.0-100.0); RBC 2.69 mil/uL (4.20-5.00); RDW-CV 13.2 % (10.5-14.5); WBC 4.3 thou/uL (4.0-11.0)
[2020-03-28 05:30] LABS: CALCIUM 8.6 mg/dL (8.5-10.1); CREATININE 1.1 mg/dL (0.6-1.3)
--- NOTE | 2020-03-28 06:50 | NUR ---
ASSUMED PT CARE AT 1930. ASSESSMENT COMPLETED CHARTED. ABLE TO MAKE SOME NEEDS KNOWN WITH DIFFICULTY. RESTING IN BED MOST OF THE NIGHT BUT DIDNT FALL ASLEEP TILL ABOUT 0230 R/T KNEE PAIN. USES CALL LIGHT APPROPRIATELY. WILL CONITNUE TO MONITOR.
[2020-03-28 08:00] VITALS: BP 132/76
[2020-03-28 12:37] LABS: HEMATOCRIT 26.8 % (37.0-47.0); HEMOGLOBIN 8.6 gm/dL (12.0-15.0)
--- NOTE | 2020-03-28 19:06 | NUR ---
AM HGB 7.[address] BREWER IN TEAM CONFERENCE AND TO DR. JONES. STOOL FOR OCCULT BLOOD OBTAINED AND WAS POSITIVE, GI CONSULT CALLED AT 1625 AND MESSAGE LEFT FOR MARIANNE. INCREASE IN MELATONIN ALSO, ORDERED TO 5 MG R/T INSOMNIA.
--- NOTE | 2020-03-28 20:00 | NUR ---
RESTING QUIETLY IN BED. HAS MUSIC PLAYING. PAIN MEDICINE GIVEN FOR COMPLAINT OF PAIN IN KNEES AND LOWER LEGS. INCONTINENT OF URINE. VEENA CARE GIVEN. ASSISTED WITH REPOSITIONING. HAS EXPRESSIVE APHASIA. TOOK MEDICATIONS CRUSHED IN APPLESAUCE FOLLOWED WITH WATER. CALL LIGHT WITHIN REACH.
[2020-03-28 20:05] VITALS: BP 133/66
--- NOTE | 2020-03-29 05:03 | NUR ---
RESTED SOUNDLY. INCONTINENT OF URINE X ONE. VEENA CARE GIVEN. ASSISTED WITH REPOSITIONING. HOURLY ROUNDING IN PROGRESS.
[2020-03-29 08:00] VITALS: BP 129/58
--- NOTE | 2020-03-29 09:55 | NUR ---
TEAM CONFRENCE MEETING HELD YESTERDAY. CM AND PHYSICIAN SPOKE TO THE PT AND HER SPOUSE TO DISCUSS THE MEETING AND PLAN TO RE-TEAM PT AND CONTINUE THERAPIES FOR ANOTHER WEEK. PT AND SPOUSE IN AGREEMENT WITH THE PLAN. PT PROGRESSING TOWARDS GOALS, BUT BARRIERS ARE WEAKNESS, ARTHRITIS BILAT KNEES, AND DECREASED BALANCE. CM WILL REMAIN AVAILABLE TO ASSIST AND FOLLOW NEEDED.
[2020-03-29 20:04] VITALS: BP 145/73
--- NOTE | 2020-03-30 05:07 | NUR ---
ASSUMED PT CARE AT 1930. PT ALERT AND ORIENTED X4, POLITE AND COOPERATIVE WITH CARES. PT HAS EXPRESSIVE APHASIA. INCONTINENT OF URINE X4, PERICARE GIVEN. PT RESTLESS OVERNIGHT, REPOSITIONED NUMEROUS TIMES. REFUSED TYLENOL FOR RIGHT LEG/KNEE PAIN. VOLTAREN GEL APPLIED. TOOK MEDICATIONS WHOLE FOLLOWED WITH WATER. CALL LIGHT IN REACH, BED ALARM ON FOR SAFETY. HOURLY ROUNDING IN PROGRESS, WILL CONTINUE TO MONITOR.
[2020-03-30 07:47] VITALS: BP 136/74
[2020-03-30 12:13] LABS: HEMATOCRIT 27.3 % (37.0-47.0); HEMOGLOBIN 8.9 gm/dL (12.0-15.0)
--- NOTE | 2020-03-30 16:14 | NUR ---
PATIENT COMPLETED THERAPIES ORDERED. UP TO CHAIR. UP TO BSC WITH MAX ASSISTANCE; GAIT BELT. PATIENT DID HAVE BM X 3. GI CAME TO SEE PATIENT THIS SHIFT FOR CONSULT, PATIENT WITH THERAPY. UPDATE GIVEN ON PATIENT TO GI. DR. JONES NOTIFIED OF HGB RESULTS THIS AM, PATIENTS EFFIENT WAS DC'D AND NOW JUST ON DAILY ASPRIN PER DR. JONES. PATIENT AND UPDATED ON PLAN OF CARE.
[2020-03-30 20:00] VITALS: BP 129/66
[2020-03-31 08:03] VITALS: BP 134/73
--- NOTE | 2020-03-31 16:33 | NUR ---
ALERT AND ORIENTED X4. UP WITH 2 ASSIST, GAIT BELT AND WALKER TO BEDSIDE COMMODE. REFUSED PO PAIN MEDICATION. USED GEL ON BILATERAL KNEES FOR PAIN. INCONTINENT 50% OF TIME TODAY. CONTINENT OF BOWELS. USES CALL LIGHT FOR ASSIST. HAS RIGHT SIDED WEAKNESS. SHOWING IMPROVEMENT WITH EXPRESSIVE APHASIA. USUALLY ABLE TO LET WANTS AND NEEDS BE KNOWN. CHAIR ALARM USED WHEN UP IN RECLINER.
[2020-03-31 19:00] VITALS: BP 149/64
--- NOTE | 2020-04-01 05:01 | NUR ---
ASSUMED PT CARE AT 1930. ASSESSMENT COMPLETED CHARTED. ABLE TO MAKE SOME NEEDS KNOWN WITH DIFFICULTY DUE TO PERSISTANT APHASIA. RESTING IN BED COMFORTABLY AT THIS TIME. C/O KNEE PAIN AND USED VOLTAREN GEL, REFUSED OTHER MANAGEMENT OPTIONS. UP WITH 1-2 ASSIST WITH WALKER. WILL CONTINUE TO MONITOR.
[2020-04-01 09:05] VITALS: BP 121/60
--- NOTE | 2020-04-01 16:45 | NUR ---
ALERT AND ORIENTED X4. APHASIC BUT USUALLY ABLE TO LET WANTS AND NEEDS BE KNOWN. UP WITH 2 ASSIST, GAIT BELT AND WALKER. HAS RIGHT SIDED WEAKNESS. USES GEL ON KNEES FOR PAIN. FREQUENTLY INCONTINENT OF URINE. USES CALL LIGHT FOR ASSIST. FALL PRECAUTIONS IN PLACE. BED ALARM AND CHAIR ALARM USED.
[2020-04-01 20:00] VITALS: BP 145/70
[2020-04-02 04:43] LABS: HEMATOCRIT 24.7 % (37.0-47.0); HEMOGLOBIN 8.2 gm/dL (12.0-15.0); MCH 28.6 pg (26.0-34.0); MCHC 33.1 g/dL (28.0-37.0); MCV 86.5 fL (80.0-100.0); MPV 7.9 fl. (7.2-11.1); RBC 2.86 mil/uL (4.20-5.00); RDW-CV 13.4 % (10.5-14.5); WBC 4.2 thou/uL (4.0-11.0)
[2020-04-02 04:45] LABS: CALCIUM 7.9 mg/dL (8.5-10.1); CREATININE 1.2 mg/dL (0.6-1.3); MAGNESIUM 2.3 mg/dL (1.8-2.4); POTASSIUM 3.8 mmol/L (3.5-5.1)
--- NOTE | 2020-04-02 05:48 | NUR ---
ASSUMED PT CARE AT 1930. ASSESSMENT COMPLETED CHARTED. ABLE TO MAKE SOME NEEDS KNOWN WITH DIFFICULTY. C/O KNEE PAIN AND USED VOLTAREN GEL PER PT REQUEST. UP WITH 1-2 TO [facility] AND HAD A COUPLE INCONTINCE EPISODES. PT RESTING IN BED AT THIS TIME. WILL CONTINUE TO MONITOR.
[2020-04-02 07:45] VITALS: BP 138/62
--- NOTE | 2020-04-02 16:50 | NUR ---
ALERT AND ORIENTED X4. UP WITH 1 ASSIST, GAIT BELT AND WALKER. APHASIA BUT USUALLY ABLE TO LET WANTS AND NEEDS BE KNOWN. CONTINENT OF BOWELS. INCONTINENT OF URINE AT TIMES. TOOK PILLS WHOLE 1 AT A TIME AND WITH WATER WITHOUT DIFFICULTY THIS AM. THIS AFTERNOON PATIENT DID HAVE SPELL WHERE SHE CHOKED ON SOME WATER BUT WAS ABLE TO COUGH ON HER OWN AND CLEAR HER THROAT. NEW MEDICATION ORDERED FOR STIFFNESS IN RIGHT ARM. USES CALL LIGHT FOR ASSIST. FALL PRECAUTIONS IN PLACE. CHAIR ALARM USED WHILE IN RECLINER.
[2020-04-02 19:00] VITALS: BP 146/77
--- NOTE | 2020-04-02 23:03 | NUR ---
ASSUMED CARE AT 1930. PATIENT IN RECLINER UNTIL HS. UP WITH ONE, GAIT BELT, WALKER, VOIDED PER TOILET. WEARS BRIEFS. DOES OWN CARES, PULLS UP HER PANTS. AFTER MUCH DISCUSSION, PATIENT WAS ADAMANT ABOUT WANTING HER MEDS CRUSHED. NEITHER PROTONIX NOR ASPIRIN WERE PART OF HER HS MEDS. BACLOFEN WAS HELD PER FAMILY AND PATIENT REQUEST, SEE MAR. GOT MELATONIN ALSO. SWALLOWED CRUSHED PILLS WITHOUT PROBLEM. VOLAREN OINT APPLIED TO BILAT KNEES AND BLE. LISTENING TO MUSIC. ASSISTED WITH TURNS. CALL LITE IN REACH. BED ALARM ON. HOURLY ROUNDS CONTINUE.
--- NOTE | 2020-04-03 05:54 | NUR ---
SLEPT SOUNDLY UNTIL 0530 WITH GENTLE SNORING RESPS AT TIMES. AWAKENED TO CHECK BRIEF, WAS INCONTINENT OF LARGE AMOUTN OF URINE. SKIN CARE DONE, MOISTURE BARRIER APPLIED. PATIENT POSITIONED ON SIDE. TOOK AM DOSE OF PROTONIX WHOLE WITH APPLESAUCE AND WATER. NO C/O PAIN. HOURLY ROUNDS CONTINUE. CALL LITE IN REACH. BED ALARM ON.
[2020-04-03 08:00] VITALS: BP 135/58
--- NOTE | 2020-04-03 12:48 | NUR ---
CM SPOKE TO THE PT AND HER SPOUSE TO DISCUSS ANY QUESTIONS OR CONCERNS THAT THEY MAY HAVE FOR TOMORROWS TEAM CONFRENCE MEETING. PT AND HER SPOUSE HAVE NO QUESTIONS OR CONCERNS AT THIS TIME 'JUST AWAITING THE UPDATE ON HER PROGRESS'. CM WILL REMAIN AVAILABLE TO ASSIST AND FOLLOW NEEDED.
[2020-04-03 19:00] VITALS: BP 138/65
--- NOTE | 2020-04-03 19:50 | NUR ---
SITTING UP RECLINER LISTENING TO MUSIC. DENIES DISCOMFORT. CALL LIGHT WITHIN REACH. EXPRESSIVE APHASIA. RIGHT HEMIPARESIS.
[2020-04-04 04:33] LABS: HEMATOCRIT 24.4 % (37.0-47.0); MCH 28.4 pg (26.0-34.0); MCHC 32.9 g/dL (28.0-37.0); MCV 86.4 fL (80.0-100.0); RBC 2.82 mil/uL (4.20-5.00); RDW-CV 13.1 % (10.5-14.5); WBC 4.2 thou/uL (4.0-11.0)
[2020-04-04 04:38] LABS: CALCIUM 8.7 mg/dL (8.5-10.1); CREATININE 1.2 mg/dL (0.6-1.3); MAGNESIUM 2.2 mg/dL (1.8-2.4); POTASSIUM 3.8 mmol/L (3.5-5.1)
--- NOTE | 2020-04-04 05:36 | NUR ---
RESTED QUIETLY SINCE ABOUT 2300. HOURLY ROUNDING IN PROGRESS.
[2020-04-04 07:43] VITALS: BP 123/57
--- NOTE | 2020-04-04 17:54 | NUR ---
AM ASSESSMENT AND VITAL SIGNS COMPLETED DOCUMENTED. PT CONTINUES TO WORK WITH PT, OT AND ST. GI FOLLOWED UP REGARDING ANEMIA. PT'S DAUGHTER REFUSED INPATIENT EGD SO OUTPATIENT PROCEDURE WILL BE SCHEDULED PRIOR TO DISCHARGE. DISCHARGE PLAN TO BE DETERMINED. FALL PRECAUTIONS AND HOURLY ROUNDING CONTINUE.
[2020-04-04 19:00] VITALS: BP 149/82
--- NOTE | 2020-04-05 05:40 | NUR ---
SLEPT MUCH OF NIGHT. UP TO VOID PER TOILET. AMB TO TOILET WITH GAIT BELT, WALKER, CGA. DOES OWN CARES. VOLTAREN GEL APPLIED TO BILAT LE. POSITIONED WITH MANY PILLOWS. CALL LITE IN REACH. BED ALARM ON. HOURLY ROUNDS CONTINUE.
--- NOTE | 2020-04-05 16:25 | NUR ---
TEAM CONFRENCE MEETING HELD YESTERDAY. PT AND SPOUSE INFORMED OF THE MEETING AND PLAN TO RE-TEAM AND HAVE THE PT REMAIN ON THE UNIT FOR ANOTHER WEEK. HOWEVER INSURANCE CONTACTED CM UR NURSE TO INFORM OF DECISION TO DECLINE ADITIONAL DAYS FOR PT AND DECISION TO REQUEST THAT PT BE D/C'D, BUT OFFER PHYSICIAN PEER-2-PEER. PT'S SPOUSE INFORMS THAT HE AND HIS DTR WILL APPEAL THE D/C THEY DO NOT BELIEVE THAT THE PT IS READY TO D/C. CM AND INPT ELECTRIFICATION ADVISER TO ASSIST WITH ARRANGEMENT OF ABILITY AMINATA A F/U OPTION FOR D/C PLANNING. CM WILL ALSO ASSIST WITH DME. PT'S DTR ANS SPOUSE TO COMPLETE FAMILY TRAINING. CM WILL REMAIN AVAILABLE TO ASSIST AND FOLLOW NEEDED.
--- NOTE | 2020-04-05 17:00 | NUR ---
PT A&Ox4, GLOBAL APHASIA. TOLERATING MEALS. DENIED PAIN. ON RA. UP WITH 1 MOD ASSIST USING GAITBELT AND WALKER. TAKES PILLS CRUSHED WITH APPLESAUCE. DAUGHTER AND IN TODAY FOR FAMILY TRAINING. FALL PRECAUTIONS IN PLACE. CALL LIGHT WITHIN REACH. WILL CONTINUE TO MONITOR.
[2020-04-05 20:18] VITALS: BP 130/69
[2020-04-06 05:15] LABS: HEMATOCRIT 24.9 % (37.0-47.0); HEMOGLOBIN 8.2 gm/dL (12.0-15.0); MCH 28.2 pg (26.0-34.0); MCHC 32.8 g/dL (28.0-37.0); MPV 7.2 fl. (7.2-11.1); RBC 2.9 mil/uL (4.20-5.00); RDW-CV 13.5 % (10.5-14.5); WBC 3.6 thou/uL (4.0-11.0)
[2020-04-06 05:54] LABS: CALCIUM 8.7 mg/dL (8.5-10.1); CREATININE 1.2 mg/dL (0.6-1.3); POTASSIUM 3.6 mmol/L (3.5-5.1)
[2020-04-06 07:49] VITALS: BP 124/57
[2020-04-06 08:30] VITALS: BP 124/75
[2020-04-06] MEDS ORDERED: VOLTAREN GEL 1100 G1 TOP (08:41)
[2020-04-06] MEDS ORDERED: LIORESAL 10 MG10 MG PO (08:41)
[2020-04-06] MEDS ORDERED: ASA81BEC PO (08:41)
[2020-04-06] MEDS ORDERED: COREG6.25 MG PO (08:41)
[2020-04-06] MEDS ORDERED: NORVASC5 MG PO (08:41)
[2020-04-06] MEDS ORDERED: FERREX 150 PLU1 EAC1 PO (08:41)
--- NOTE | 2020-04-06 16:20 | NUR ---
ALERT AND ORIENTED X4. UP WITH 1 ASSIST, GAIT BELT AND WALKER TO BATHROOM. REFUSES PAIN MEDICATION WHEN OFFERED. TAKES MOST PILLS CRUSHED IN APPLESAUCE. EGD ORDERED FOR IN AM. CONTINENT OF BOWEL AND BLADDER TODAY. USES CALL LIGHT FOR ASSIST. FALL PRECAUTIONS IN PLACE. BED ALARM AND CHAIR ALARM USED.
[2020-04-06 20:16] VITALS: BP 146/79
--- NOTE | 2020-04-07 05:25 | NUR ---
ASSUMED PT CARE AT 1930. ASSESSMENT COMPLETED CHARTED. ABLE TO MAKE SOME NEEDS KNOWN. C/O BILATERAL LEG PAIN AND USED PAIN GEL NEEDED. PT RESTING IN BED MOST OF THE NIGHT. PT DIFFICULT TO GET COMFORTABLE IN BED. PT NPO FOR EGD SCHEDULED TODAY. WILL CONTINUE TO MONITOR.
[2020-04-07 08:01] VITALS: BP 129/54
--- NOTE | 2020-04-07 19:45 | NUR ---
SITTING UP IN RECLINER. INCONTINENT OF URINE. VEENA CARE GIVEN. ASSISTED TO BED WITH MODERATE ASSIST OF TWO, GAITBELT, WALKER, CUEING. CALL LIGHT WITHIN REACH. ASSISTED WITH REPOSITIONING TO RIGHT SIDE PER PATIENT'S REQUEST.
[2020-04-07 19:50] VITALS: BP 167/69
--- NOTE | 2020-04-08 05:11 | NUR ---
RESTED POORLY UNTIL ABOUT 034. PRIOR TO THAT WAS INTERNAL AUDIT MANAGER LIGHT MULITPLE TIMES. AT LEAST 15 TIMES. RESTLESS. COULDN'T GET COMPFORTABLE. ASSISTED WITH REPOSITIONING MULTIPLE TIMES. VERY FUSSY AND PARTICULAR. DENIED PAIN UNTIL 010. FIRST STATED ONLY WANTED ONE TYLENOL FOR COMPLAINT OF RIGHT LEG PAIN. THEN AFTER TAKING PATIENT ONE TYLENOL PER REQUEST AND SCANNING THE MEDICATION PATIENT DECIDED SHE WANTED TWO TYLENOLS. GAVE TWO TYLENOLS PER REQUEST WITH PARTIAL RELIEF. INCONTINENT OF URINE X 5. VEENA CARE GIVEN EACH TIME. HOURLY ROUNDING IN PROGRESS.
[2020-04-08 07:04] LABS: HEMATOCRIT 26.4 % (37.0-47.0); HEMOGLOBIN 8.7 gm/dL (12.0-15.0); MCH 27.9 pg (26.0-34.0); MCHC 32.8 g/dL (28.0-37.0); MCV 85.3 fL (80.0-100.0); MPV 6.8 fl. (7.2-11.1); RBC 3.1 mil/uL (4.20-5.00); RDW-CV 13.5 % (10.5-14.5); WBC 3.6 thou/uL (4.0-11.0)
[2020-04-08 07:17] LABS: CREATININE 1.1 mg/dL (0.6-1.3); POTASSIUM 3.5 mmol/L (3.5-5.1)
[2020-04-08 07:47] VITALS: BP 136/61
--- NOTE | 2020-04-08 18:52 | NUR ---
AM ASSESSMENT AND VITAL SIGNS COMPLETED DOCUMENTED. PT WAS ABLE TO REST TODAY AND STATES SHE ISN'T FEELING ANXIOUS. PT AND HER HAD ALL NEEDS MET. FALL PRECAUTIONS AND HOURLY ROUNDING CONTINUE.
[2020-04-08 20:00] VITALS: BP 138/61
--- NOTE | 2020-04-09 04:54 | NUR ---
ASSUMED PT CARE AT 1930. PT ALERT AND ORIENTED X4. RIGHT SIDE WEAKNESS. PT INCONTINENT OF URINE X5, UP TO BATHROOM ONCE TO VOID WITH GAITBELT AND WALKER. PT APHASIC, FRUSTRATED WITH INABILITY TO EXPRESS NEEDS. TYLENOL GIVEN FOR LEG PAIN X2. CALL LIGHT IN REACH, BED ALARM ON FOR SAFETY. HOURLY ROUNDING IN PROGRESS, WILL CONTINUE TO MONITOR.
[2020-04-09 08:30] VITALS: BP 154/63
--- NOTE | 2020-04-09 17:38 | NUR ---
ALERT AND ORIENTED X4. HAS EXPRESSIVE APHASIA BUT USUALLY ABLE TO LET WANTS AND NEEDS BE KNOWN. DENIES NEED FOR PAIN MEDICATION WHEN ASKED. UP WITH 1 ASSIST, GAIT BELT AND WALKER. CONTINENT OF BOWEL AND BLADDER TODAY. FALL PRECAUTIONS IN PLACE. BED AND CHAIR ALARM USED.
[2020-04-09 19:00] VITALS: BP 147/82
--- NOTE | 2020-04-10 05:27 | NUR ---
ASSUMED PT CARE AT 1930. PT ALERT AND ORIENTED X4, POLITE AND COOPERATIVE WITH CARES. PT SITTING UP IN RECLINER AT SHIFT CHANGE, TRANSFERRED TO BED WITH ASSIST OF 2, GAIT BELT AND WALKER. PT HAS EXPRESSIVE APHASIA, USUALLY ABLE TO MAKE HER NEEDS KNOWN GIVEN TIME. INCONTINENT OF BLADDER X5 OVERNIGHT, PERICARE PROVIDED. TYLENOL AT HS AND AGAIN AT 0500 FOR LEG PAIN. CALL LIGHT IN REACH, BED ALARM ON FOR SAFETY. HOURLY ROUNDING IN PROGRESS, WILL CONTINUE TO MONITOR.
[2020-04-10 08:00] VITALS: BP 122/59
--- NOTE | 2020-04-10 13:08 | NUR ---
Per nurse, family plans to appeal dc. P2P complete. [facility] can accept Pt and she can start on Thursday.
--- NOTE | 2020-04-10 16:56 | NUR ---
ALERT AND ORIENTED X4. HAS EXPRESSIVE APHASIA. GEL APPLIED TO KNEES TO HELP WITH PAIN. CONTINENT OF BOWEL AND BLADDER. UP WITH 1 ASSIST, GAIT BELT AND WALKER. USES CALL LIGHT FOR ASSIST. FALL PRECAUTIONS IN PLACE. BED ALARM AND CHAIR ALARM USED.
[2020-04-10 19:00] VITALS: BP 137/69
[2020-04-11 04:47] LABS: HEMATOCRIT 25.6 % (37.0-47.0); HEMOGLOBIN 8.4 gm/dL (12.0-15.0); MCH 27.5 pg (26.0-34.0); MCHC 32.7 g/dL (28.0-37.0); MCV 83.9 fL (80.0-100.0); MPV 7.9 fl. (7.2-11.1); RBC 3.05 mil/uL (4.20-5.00); RDW-CV 13.7 % (10.5-14.5); WBC 4.3 thou/uL (4.0-11.0)
[2020-04-11 04:59] LABS: CREATININE 1.1 mg/dL (0.6-1.3); POTASSIUM 3.8 mmol/L (3.5-5.1)
--- NOTE | 2020-04-11 05:12 | NUR ---
ASSUMED CARE AT 1920. ALERT AND ORIENTED. PLEASANT. EXPRESSIVE APHASIA. MOD ASSIST WITH GAIT BELT AND WALKER. UP TO BATHROOM. URINARY INCONTINENCE OVERNIGHT. VOLTAREN GEL TO KNEES. TYLENOL GIVEN PER PT REQUEST. PILLS CRUSHED IN APPLESAUCE. SLEPT OFF AND ON. LIKES TO SLEEP ON BOTH SIDES. CALL LIGHT IN REACH AND BED ALARM ON.
[2020-04-11 08:00] VITALS: BP 155/85
[2020-04-11 20:17] VITALS: BP 169/63
--- NOTE | 2020-04-12 05:59 | NUR ---
ASSUMED CARES AT 1920. ALERT. PLEASANT. TYLENOL GIVEN FOR KNEE PAIN PER PT REQUEST. MOD ASSIST GAIT BELT AND WALKER. UP TO BATHROOM BUT INCONTINENT OVERNIGHT. SLEPT LITTLE OFF AND ON. CALLED OUT FREQUENTLY TO BE CHANGED OR REPOSITIONED. CALL LIGHT IN REACH AND BED ALARM ON.
[2020-04-12 08:00] VITALS: BP 146/71
--- NOTE | 2020-04-12 18:44 | NUR ---
AM ASSESSMENT AND VITAL SIGNS COMPLETED DOCUMENTED. PT CONTINUES TO WORK WITH THERAPIES. THIS EVENING PT'S WAS FOUND GETTING HER UP FROM THE RECLINER WITHOUT ASSISTANCE. PT AND HER DEMONSTRATE GOOD KNOWLRDGE OF SAFE TRANSFER BUT REMINDED TO CALL FOR ASSISTANCE. FALL PRECAUTIONS AND HOURLY ROUNDING CONTINUE.
[2020-04-12 20:20] VITALS: BP 134/62
--- NOTE | 2020-04-13 05:13 | NUR ---
ASSUMED PT CARE AT 1930. PT ALERT AND ORIENTED X4, POLITE AND COOPERATIVE WITH CARES. PT SITTING UP IN RECLINER AT SHIFT CHANGE. TOOK PILLS WHOLE IN APPLESAUCE WITHOUT DIFFICULTY. PRN TYLENOL AT HS FOR KNEE/LEG PAIN. HOME CREAMS APPLIED TO KNEES/LEGS AT PT REQUEST. PT INCONTINENT OF URINE SEVERAL TIMES, PERICARE PROVIDED. PT RESPOSITIONED SEVERAL TIMES OVERNIGHT, OTHERWISE SLEPT WELL. CALL LIGHT IN REACH, BED ALARM ON FOR SAFETY. HOURLY ROUNDING IN PROGRESS, WILL CONTINUE TO MONITOR.
[2020-04-13 07:36] VITALS: BP 151/72
--- NOTE | 2020-04-13 14:25 | NUR ---
[employer] MEETING HELD THURSDAY. CM AND PHYSICIAN SPOKE TO PT AND HER SPOUSE TO INFORM OF THE MEETING AND PLAN TO CONTINUE THERAPY UNTI INSURANCE HAS COME TO A FINAL DECISION. PT AND HER SPOUSE ARE IN AGREEMENT WITH THE PLAN. INPT REHAB LIAISION ARRANGED APPOINTMENT WITH [facility]. CM WILL REMAIN AVAILABLE TO ASSIST AND FOLLOW NEEDED.
--- NOTE | 2020-04-13 16:18 | NUR ---
PT WORKED WITH THERAPIES. REPORTED PAIN TO R KNEE BUT REFUSED PAIN MEDICATION. PT UP WITH ASSIST X1 TO BATHROOM AND CHAIR. HERE TO VISIT. PT ABLE TO COMMUNICATE SOME NEEDS.
[2020-04-13 18:34] VITALS: BP 151/72
[2020-04-13 20:20] VITALS: BP 135/76
[2020-04-13 21:30] VITALS: BP 135/76
--- NOTE | 2020-04-14 06:44 | NUR ---
ASSUMED PT CARE AT 1930. ASSESSMENT COMPLETED CHARTED. DIFFICULT TO MAKE NEEDS KNOWN DUE TO APHASIA. C/O PAIN IN KNEES AND GAVE PRN PAIN MEDICATION PER EMAR. PT WANTED TURNED AT TIMES. PT REFUSED MORNING MEDS STATING IF SHE WAS SLEEPING TO NOT BOTHER HER WITH PILLS. PT RESTING IN BED MOST OF THE NIGHT, WILL CONTINUE TO MONITOR.
[2020-04-14 08:11] VITALS: BP 133/64
[2020-04-14 09:16] VITALS: BP 151/72
[2020-04-14 10:43] VITALS: BP 151/72
--- NOTE | 2020-04-14 11:59 | NUR ---
PT DISCHARGED HOME. COPY OF DISCHARGE PAPERWORK TO PT AND FAMILY WITH EXPLAINATION. PT AND FAMILY VERBALIZED UNDERSTANDING. FAMILY TOOK ALL BELONGINGS. PRESCRIPTIONS CALLED IN BY DR JUÁREZ.
--- NOTE | 2020-04-14 13:19 | NUR ---
CM INFORMED BY PHYSICIAN OF PLAN TO D/C PT HOME TODAY WITH HH. UGO SPOKE TO THE PT, SPOUSE, AND HER DTR TO DISCUSS D/C PLANNING. CM SPOKE TO THE PT TO DISCUSS PLAN TO DO OUTPATIENT PT/OT/ST AND PT'S DTR ARRANGED APPT FOR 04/19/20 WITH [facility]. PLAN FOR PT'S DTR TO PROVIDE PT TRASNPORT HOME. PT'S DTR AND SPOUSE DECLINED PREVIOUSLY REQUESTED BED SIDE COMMODE. CM FAXED PT'S CLINICAL INFO TO PROVIDER [facility] FOR WALKER. NO OTHER DME NEEDED. CM WILL REMAIN AVAILABLE TO ASSIST AND FOLLOW NEEDED. [facility] OUTPATIENT PT/OT/ST PHONE: [phone] FAX: [phone]
== END 2020-04-14 12:01 | disposition home health service (06) | DRG 56 ==
LOC: M.REH 15:21
PROVIDERS: Family Medicine; Internal Medicine; Nurse Practitioner Family; ADMIT Physical Medicine & Rehabilitation; ATTEND Physical Medicine & Rehabilitation
PROC: 0DJ08ZZ Inspection of Upper Intestinal Tract, Via Natural or Artificial Opening Endoscopic (ICD-10-PCS; principal; 2020-04-07)
DX: I69.351 Hemiplegia and hemiparesis following cerebral infarction affecting right dominant side (principal); I63.81 Other cerebral infarction due to occlusion or stenosis of small artery; G93.40 Encephalopathy, unspecified; K92.2 Gastrointestinal hemorrhage, unspecified; R47.01 Aphasia; T78.40XA Allergy, unspecified, initial encounter; X58.XXXA Exposure to other specified factors, initial encounter; T50.915A Adverse effect of multiple unspecified drugs, medicaments and biological substances, initial encounter; D50.0 Iron deficiency anemia secondary to blood loss (chronic); K44.9 Diaphragmatic hernia without obstruction or gangrene; R53.81 Other malaise; I10 Essential (primary) hypertension; R47.1 Dysarthria and anarthria; R13.10 Dysphagia, unspecified; Z88.8 Allergy status to other drugs, medicaments and biological substances; Z88.0 Allergy status to penicillin; Z91.011 Allergy to milk products; Z91.018 Allergy to other foods; Z91.041 Radiographic dye allergy status; Y92.89 Other specified places as the place of occurrence of the external cause

== ENCOUNTER 2020-04-17 17:25 | Observation (INO) | payer MEDICARE ==
[~2020-04-17] VITALS: Ht 162.6 cm; Wt 81.6 kg
[~2020-04-17 17:25] MED LIST changes: +COREG6.25 MG PO; +FERREX 150 PLU1 EAC1 PO; +FISH OIL 1,001000 M2 PO; +LIORESAL 10 MG10 MG PO; +PLAVIX 75 MG TA75 M1 PO; +VITAMIN C1000 MG PO; +VITAMIN D325 MCG PO; +VOLTAREN GEL 1100 G1 TOP
[2020-04-17 17:30] VITALS: BP 214/104
[2020-04-17 17:46] LABS: ABSOLUTE BASOPHILS 0.1 thou/uL (0.0-0.2); ABSOLUTE EOSINOPHILS 0.1 thou/uL (0.0-0.7); ABSOLUTE LYMPHOCYTES 1.3 thou/uL (0.8-5.3); ABSOLUTE MONOCYTES 0.5 thou/uL (0.0-1.2); ABSOLUTE NEUTROPHILS 3.9 thou/uL (1.6-8.1); EOSINOPHILS 1.1 %; HEMATOCRIT 30.9 % (37.0-47.0); LYMPHOCYTES 22.2 %; MCH 27.1 pg (26.0-34.0); MCHC 32.3 g/dL (28.0-37.0); MCV 83.7 fL (80.0-100.0); MONOCYTES 8.7 %; MPV 8.2 fl. (7.2-11.1); NUCLEATED RBCS 0 /100WBC; PLATELET COUNT* 298 thou/uL (150-400); RBC 3.69 mil/uL (4.20-5.00); RDW-CV 14.3 % (10.5-14.5); WBC 5.8 thou/uL (4.0-11.0)
[2020-04-17 17:55] LABS: CALCIUM 10.5 mg/dL (8.5-10.1); CREATININE 1.2 mg/dL (0.6-1.3); POTASSIUM 3.8 mmol/L (3.5-5.1)
[2020-04-17 18:00] LABS: ALBUMIN 3.8 g/dL (3.4-5.0); TOTAL BILIRUBIN 0.4 mg/dL (<0.1-1.0); TOTAL PROTEIN 7.8 g/dL (6.4-8.2)
[2020-04-17 18:35] LABS: URINE BILIRUBIN NEGATIVE (Negative); URINE BLOOD NEGATIVE (Negative); URINE CLARITY CLEAR; URINE COLOR YELLOW; URINE GLUCOSE-RANDOM NEGATIVE (Negative); URINE KETONES NEGATIVE (Negative); URINE LEUKOCYTES NEGATIVE (Negative); URINE NITRITE NEGATIVE (Negative); URINE PROTEIN NEGATIVE (Negative); URINE SPECIFIC GRAVITY 1.015 (1.005-1.030); URINE UROBILINOGEN 0.2 E.U./dl (0.2-1.0)
[2020-04-17 21:15] VITALS: BP 178/76
[2020-04-17 21:26] VITALS: BP 168/78
--- NOTE | 2020-04-18 00:13 | NUR ---
ASSUMED CARE OF PT AT 1900. PT IS ALERT AND ORIENTED. VSS. PERRLA. NO COMPLAINTS OF PAIN AT THIS TIME. PT IS WEAK ON THE RIGHT SIDE. PT ALSO HAS SOME APHASIA. PT IS ABLE TO SAY YES OR NO BUT NOT MUCH ELSE. PT IS IN SINUS RYTHM ON THE TELEMETRY. PT IS RESTING COMFORTABLY IN BED. RESPIRATIONS ARE EVEN AND NONLABORED. WILL CONTINUE TO MONITOR PT.
[2020-04-18 04:57] LABS: HEMATOCRIT 26.7 % (37.0-47.0); HEMOGLOBIN 8.6 gm/dL (12.0-15.0); MCH 27.1 pg (26.0-34.0); MCHC 32.3 g/dL (28.0-37.0); MPV 8.6 fl. (7.2-11.1); RBC 3.18 mil/uL (4.20-5.00); RDW-CV 13.8 % (10.5-14.5); WBC 4.4 thou/uL (4.0-11.0)
[2020-04-18 05:30] LABS: CALCIUM 9.1 mg/dL (8.5-10.1); CREATININE 1.1 mg/dL (0.6-1.3); POTASSIUM 3.1 mmol/L (3.5-5.1)
[2020-04-18 05:54] VITALS: BP 143/61
[2020-04-18 08:00] VITALS: BP 130/65
--- NOTE | 2020-04-18 10:18 | EKG ---
[place] [address] ELECTROCARDIOGRAM REPORT Name: WANG SMITH Room: [address] ADM IN ..#: [id number] Admission: 04/17/20 Attend Phys: Alee Crook MD Discharge: Date of : 47 Date of Service: 04/17/20 1740 Report #: [id number] THIS REPORT FOR: //name// [facility] ED Test Date: 2020-04-17 Test Time: 17:40:29 Pat Name: WANG SMITH Department: Room: [facility] Gender: F Nanny Babysitter: CCD : 1945 Requested By: Logan [place] Order Number: [id number] MD: Thomas Rueda Measurements Intervals [place] Rate: 95 P: 46 NC: 149 QRS: 38 QRSD: 89 T: 54 QT: 386 QTc: 486 Interpretive Statements Sinus rhythm Ventricular premature complex Probable left atrial enlargement Borderline prolonged QT interval Compared to ECG 02/21/2020 11:56:59 Ventricular premature complex(es) now present Electronically Signed On 04-18-2020 10:18:11 COORDINATOR HOTELS by Thomas Rueda [email or web address] <ELECTRONICALLY SIGNED> By: Thomas Rueda MD, [facility] 04/18/20 1018 1740 1740 Thomas Rueda MD, [facility] /EPI
[2020-04-18 12:00] VITALS: BP 150/82
[2020-04-18 13:19] VITALS: BP 130/65
--- NOTE | 2020-04-18 13:52 | NUR ---
ASSUMED CARE OF PATIENT THIS AM AT 0730. PATIENT IS ALERT, APHASIC THIS AM. RIGHT SIDE HAS NO PURPOSEFUL MOVEMENT. PATIENT IS ABLE TO STAND WITH ASSIST OF GAITBELT, WALKER AND 1 TO 2 PERSON ASSIST. PLANS TO HAVE A MRI CANCELLED. PATIENT ASSESSED TO BE AT BASELINE NEUROLOGICALLY. DISCHARGE ORDERS WRITTEN. IV FLUIDS AND TELE MONITOR DISCONTINUED. PATIENT DISCHARGED TO HOME PER W/C WITH BELONGINGS.
== END 2020-04-18 14:05 | disposition home or self-care (01) ==
LOC: M.ERS 17:25 → M.2W 18:55 → M.TBA-ER 18:55 → M.2W 20:14
PROVIDERS: Emergency Medicine; ADMIT Family Medicine; ATTEND Family Medicine
DX: G93.41 Metabolic encephalopathy (principal); I63.9 Cerebral infarction, unspecified; R47.01 Aphasia; R53.1 Weakness; D50.9 Iron deficiency anemia, unspecified; I10 Essential (primary) hypertension; Z79.899 Other long term (current) drug therapy; Z20.822 Contact with and (suspected) exposure to COVID-19

== ENCOUNTER 2020-05-24 07:31 | Inpatient (IN) | payer MEDICARE ==
[~2020-05-24] VITALS: Ht 167.6 cm; Wt 84.0 kg
--- NOTE | ~2020-05-24 | EEG ---
[address] [address] EEG STUDY REPORT Name: WANG SMITH Room: [address] IN M.R.#: [id number] Admission: 05/24/20 Attend Phys: Sophia Rocha Discharge: Date of : 47 Report #: [id number] THIS REPORT FOR: cc: Nahun Christine MD, Jonathan MD Khosla,David Hill MD ~ DATE OF SERVICE: 05/28/2020 This patient is being evaluated by me for altered mental status. EEG was done by placing the electrode by standard 10-20 system of electrode placement. Both referential and sequential montages were used for recording. Background activity in this patient's EEG is about 7-8 Hz and 30 microvolt. This patient went to sleep and that is associated with bilaterally symmetrical sleep spindle and vertex sharp waves. Photic stimulation is unremarkable. Throughout the record, no active epileptiform activity was noticed. IMPRESSION: This is an abnormal EEG because it is disorganized and poorly formed. That is a nonspecific abnormality, which can occur with dementia, encephalopathy, effect of psychotropic medication, etc. No active epileptiform activity was noticed during this record. By: 1311 [id number] Kwok MD /nt
--- NOTE | ~2020-05-24 | CON ---
[address] [address] CONSULTATION Name: SARAHWANG Yordy Room: [address] IN M.R.#: [id number] Admission: 05/24/20 Attend Phys: Sophia Rocha Discharge: Date of : 47 Report #: [id number] THIS REPORT FOR: cc: Nahun Christine MD,Nahun Solo,Kenya Vergara DO ~ NEUROLOGY CONSULTATION HISTORY OF PRESENT ILLNESS: The patient is a 75-year-old female well known to me from a previous admission for stroke. Apparently, the patient had fallen the morning of admission and complained of right hip, knee and ankle pain. The patient was found to have a right hip displaced intertrochanteric fracture and was subsequently taken to surgery. The patient has done well, but yesterday while she was on the orthopedic floor, her daughter noticed that her mother's eyes moved to the right. The patient was unable to speak (she also has aphasia) and mumbled. Then, she lost control of her bladder. The patient was then transferred to the floor for further evaluation. The patient has not had any further episodes like this. A CT scan of the head showed no new strokes. The patient has been on narcotics for pain control and also tramadol; however, she received a dose on 05/25 at 1:30 a.m. and then again on 05/26 at 4:40 p.m. PAST MEDICAL HISTORY: Stroke, hypertension. PAST SURGICAL HISTORY: Right hip fracture repair. MEDICATIONS: In hospital, amlodipine 5 mg b.i.d., apixaban 2.5 mg b.i.d., vitamin C 1000 mg b.i.d., aspirin 81 mg daily, Coreg 6.25 mg b.i.d., vitamin D 4000 units daily, Colace 100 mg b.i.d., iron 150 mg daily, p.r.n. pain medications include Dilaudid 1 mg q.6 hours. The patient has only received one dose on 05/24, oxycodone 10 mg. The patient is receiving this medication approximately 3 times a day. ALLERGIES: PENICILLIN, HORSE-CONTAINING PRODUCTS, DIPHENHYDRAMINE, IODINE, PENICILLIN, BACLOFEN, HYDROCHLOROTHIAZIDE, MILK AND PORK-CONTAINING PRODUCTS. PHYSICAL EXAMINATION: VITAL SIGNS: Temperature 37.2, pulse rate 95, respiratory rate 18, blood pressure 103/75, bedside pulse oximetry 97% on 2 liters. NEUROLOGIC: Cranial nerves 2-12 demonstrate a right facial droop. Motor exam demonstrates a right hemiparesis, particularly of the right upper extremity. Reflexes are trace throughout the right plantar response, the extensor, the left plantar response, the flexor. The patient was not asked to do [id number] and she cannot walk because of the hip fracture. She is aphasic and is able to get out occasionally a [place] [address] CONSULTATION Name: WANG SMITH Room: [address]#: [id number] Admission: 05/24/20 Attend Phys: Sophia Rocha Discharge: Date of : 47 Report #: [id number] LABORATORY WORK: Hematology: White blood cell count 6.6, hemoglobin 8, hematocrit 24.7, MCV 83.2, platelet count 195,000. Chemistry: Sodium 140, potassium 3.8, chloride 104, carbon dioxide 29, BUN 19, creatinine 1.1, glomerular filtration rate 59, glucose 108. Liver functions normal. IMAGING: CT scan of the head dated 05/26 demonstrates severe periventricular white matter disease and multiple old lacunar infarcts in the deep white matter, particularly in the left frontoparietal lobe. IMPRESSION: This patient has most likely had a seizure related to the abnormalities in the left frontal lobe. Whether or not the pain medication has played any part in this is unknown, but I would not give the patient tramadol because it can lower the seizure threshold with her 2 doses is enough to do this; I do not know, but I would not give the patient tramadol again. I have started the patient on levetiracetam 250 mg b.i.d. This is a low dose, but I would like to see if this is going to make the patient drowsy. If she does well with it and tolerates it, then it can be increased to 500 mg b.i.d. I have ordered an EEG for tomorrow. Dr. Kwok will follow the patient as of Thursday morning. I thank you for your kind referral of this patient. By: 0930 [id number] Solo DO /tawana
[2020-05-24 07:31] VITALS: BP 200/94
[~2020-05-24 07:31] MED LIST changes: +LIPITOR40 MG PO
[2020-05-24 08:57] LABS: ABSOLUTE EOSINOPHILS 0.1 thou/uL (0.0-0.7); ABSOLUTE LYMPHOCYTES 1.1 thou/uL (0.8-5.3); ABSOLUTE MONOCYTES 0.2 thou/uL (0.0-1.2); ABSOLUTE NEUTROPHILS 3.1 thou/uL (1.6-8.1); BASOPHILS 0.9 %; EOSINOPHILS 1.6 %; HEMATOCRIT 37.9 % (37.0-47.0); LYMPHOCYTES 24.1 %; MCH 26.5 pg (26.0-34.0); MCHC 31.6 g/dL (28.0-37.0); MCV 83.9 fL (80.0-100.0); MONOCYTES 4.9 %; MPV 9.1 fl. (7.2-11.1); NUCLEATED RBCS 0 /100WBC; PLATELET COUNT* 267 thou/uL (150-400); POLYS 68.5 %; RBC 4.52 mil/uL (4.20-5.00); RDW-CV 15.3 % (10.5-14.5); WBC 4.6 thou/uL (4.0-11.0)
[2020-05-24 09:03] LABS: CALCIUM 9.4 mg/dL (8.5-10.1); CREATININE 0.9 mg/dL (0.6-1.3); POTASSIUM 3.8 mmol/L (3.5-5.1)
[2020-05-24 09:08] LABS: ALBUMIN 3.8 g/dL (3.4-5.0); TOTAL BILIRUBIN 0.4 mg/dL (<0.1-1.0); TOTAL PROTEIN 8.4 g/dL (6.4-8.2)
[2020-05-24 10:10] VITALS: BP 179/85
[2020-05-24 14:15] VITALS: BP 151/86
--- NOTE | 2020-05-24 14:15 | NUR ---
PT TO UNIT VIA BED AND GENERAL SALES MANAGER. PT ADMITTED FROM ER TO SURGERY. PT HAD ORIF OF THE RIGHT HIP. REPORT FROM MAIKEL FREGOSO. STATES PT HAD EBL 200. RECEIVED 1L OF FLUID IN OR. HAD 750 OUT PER EDWARDS IN OR. PER REPORT PT RECEIVED ZOFRAN, 100 MCG FENT AND 1 DILAUDID IN PACU. PT PLACED ON 2L O2. PT SLEEPING. MAIKEL GARAY FAMILY WAS IN THE PACU WAITING ROOM, BUT WENT TO RUN AN ERRAND AND WILL BE BACK. FALL PRECAUTIONS IN PLACE. CALL LIGHT WITHIN REACH. WILL CONTINUE TO MONITOR.
--- NOTE | 2020-05-24 18:45 | NUR ---
DAUGHTER REMAINS AT BEDSIDE. PT ON CONTINUOUS PULSE OX WITH 2L PER NC. PT GIVEN PRN MEDS FOR PAIN AND NAUSEA. PT TOLERATED APPLESAUCE AND LIQUIDS. PT AWAKE. FALL PRECAUTIONS REMAIN IN PLACE. WILL CONTINUE TO MONITOR. PT DAUGHTER ALSO SPOKE WITH DAILY ARIZMENDI. PT RECENT[facility] IN [facility] AND FELL THIS AM AT HOME. PT HAS EDWARDS IN PLACE.
[2020-05-24 20:00] VITALS: BP 121/67
[2020-05-24 23:47] VITALS: BP 111/75
[2020-05-25 04:22] VITALS: BP 125/68
--- NOTE | 2020-05-25 04:30 | NUR ---
PT A&O, VSS ON 1-2L WITH CONTINUOUS PULSE OX MONITOR. PILLS GIVEN WITH APPLE SAUCE. NO N/V. DRESSING TO RT HIP INTACT. PAIN MANAGED WITH OXY IR AND TRAMADOL. PT ONCE C/O PAIN, TOOK HER NOEL HOSE OFF. REFUSED SCDS THEN REFUSED PAIN MED. EDWARDS IN PLACE. IVF INFUISING. 25OML OF NS GIVEN FOR SMALL URINE OUTPUT. WILL CONTINUE TO MONITOR.
[2020-05-25 04:41] LABS: HEMATOCRIT 22.7 % (37.0-47.0); MCH 26.9 pg (26.0-34.0); MPV 8.2 fl. (7.2-11.1); RBC 2.7 mil/uL (4.20-5.00); RDW-CV 15.6 % (10.5-14.5); WBC 5.8 thou/uL (4.0-11.0)
[2020-05-25 05:11] LABS: CALCIUM 8.4 mg/dL (8.5-10.1)
[2020-05-25 05:28] LABS: HEMOGLOBIN 7.3 gm/dL (12.0-15.0)
[2020-05-25 05:33] LABS: CREATININE 1.9 mg/dL (0.6-1.3); POTASSIUM 4.9 mmol/L (3.5-5.1)
--- NOTE | 2020-05-25 10:46 | NUR ---
CM COMPLETED THE INITIAL ASSESSMENT TO DISCUSS DC PLANNING. PT SPOUSE AT BEDSIDE, SPOUSE STATED PT GOT UP W/O ASSISTANCE TO USE COMMODE AND FELL. PT LIVES IN HOME W/SPOUSE AND DTR. PT USES WALKER, W/C. PT RECEIVES ASSISTANCE W/ADLS. PT HAS HX IN [facility] ARU IN FEB 2020. CM TO CONT TO FOLLOW.
[2020-05-25 11:19] VITALS: BP 128/63; BP 135/66; BP 140/68; BP 152/69; BP 156/73
[2020-05-25 12:41] VITALS: BP 129/74
--- NOTE | 2020-05-25 14:47 | NUR ---
UGO S/W VIKI WHO HAD QUESTIONS RE ARU TIMELINE TO GET A PERSON APPROVED. ALSO, VIKI STATED SHE WILL LIKE TO TRY IGNITE/SMV FOR SKILLED IF PT IS NOT APPROVED FOR ARU.
[2020-05-25 16:00] VITALS: BP 144/70
--- NOTE | 2020-05-25 17:39 | NUR ---
PT AWAKE/ALERT. VSS. NOEL TO RLE ALLOWED BY PT. DRESSING TO R HIP C/D/I, MINIMAL DRAINAGE VISIBLE BENEATH BANDAGE. SCDs TO BILAT FEET. PT EXHIBITS R SIDED WEAKNESS RESIDUAL FROM PREVIOUS CVA. PT ON 1L O2 BY NASAL CANNULA SAT 99-100%. CONTINUOUS PULSE OX IN PLACE. PT REMAINS 50% WB. PRN P[AIN MEDICATION ADMINISTERED REQUESTED. PT TAKES PILLS 1 AT A TIME WITH APPLESAUCE. IV TO L HAND DC'D R/T INFILTRATION. NEW ACCESS STARTED IN LFA BY BARAK FREGOSO WITH U/S. 1 UNIT BLOOD TRANSFUSED ORDERED. FLUIDS RESUMED FOLLOWING TRANSFUSION. PT SPOUSE AT BEDSIDE THIS SHIFT. PT PARTICIPATED WITH THERAPIES THIS SHIFT. PT RESTS IN ROOM WITH CALL LIGHT IN REACH.
[2020-05-25 21:00] VITALS: BP 131/79
[2020-05-26 00:22] VITALS: BP 127/58
--- NOTE | 2020-05-26 05:01 | NUR ---
PT SLEPT OFF AND ON OVERNIGHT, RECEIVING PO PAIN MED TWICE OVERNIGHT FOR MOANING AND CO PAIN. PT TURNED AND REPOSITIONED Q2 HOURS AND PRN FOR SKIN CARE AND COMFORT. INCONTINENT URINE OVERNIGHT, VEENA CARE GIVEN. TAKES PILLS WHOLE IN APPLESAUCE ONE AT A TIME. LFA IVF INFUSING PER PUMP. CONT PULSE OX ON OVERNIGHT. MEPILEX DRSG TO R THIGH WITH SMALL AMOUNT DRIED BLOOD SHADOWING. AM LABS DRAWN. R SIDED WEAKNESS FROM PREVIOUS CVA. NOEL HOSE BLE, SCD FEET SLEEVES. BED ALRM ON FOR SAFETY.
[2020-05-26 06:52] LABS: HEMATOCRIT 25.8 % (37.0-47.0); HEMOGLOBIN 8.4 gm/dL (12.0-15.0); MCH 27.3 pg (26.0-34.0); MCHC 32.5 g/dL (28.0-37.0); MCV 83.9 fL (80.0-100.0); MPV 8.4 fl. (7.2-11.1); RBC 3.07 mil/uL (4.20-5.00); RDW-CV 14.7 % (10.5-14.5)
[2020-05-26 06:56] LABS: CALCIUM 7.9 mg/dL (8.5-10.1); CREATININE 1.1 mg/dL (0.6-1.3); POTASSIUM 3.8 mmol/L (3.5-5.1)
[2020-05-26 07:40] VITALS: BP 159/86
--- NOTE | 2020-05-26 16:56 | NUR ---
PT AWAKE/ALERT. VSS. VERBAL COMMUNICATION DIFFICULT AT TIMES. PT REMAINS INCONTINENT OF B/B. PT BECOMES RESTLESS WITH EPISODES OF INCONTINENCE, BUT DOES NOT INDICATE NEED TO URINATE PRIOR TO INCONTINENCE. PT REMAINS ON ROOM AIR, 93-94% 02 SAT. DRESSING TO R HIP REMAINS C/D/I. SOME DRAINAGE VISIBLE BENEATH DRESSING, AMT DOES NOT APPEAR TO HAVE INCREASED SINCE ASSUMING CARE THIS AM. IV TO LFA PATENT, LR RUNNING ORDERED. R SIDED WEAKNESS R/T PREVIOUS STROKE PRESENT AT TIME OF THIS ADMISSION. PT TAKES PILLS WHOLE, ONE AT A TIME IN APPLESAUCE, SOME ISSUES SWALLOWING PILLS, REQUIRES MUCH DIRECTION AND ENCOURAGEMENT. PT DGTR AT BEDSIDE TODAY. PT PARTICIPATED IN THERAPIES. PT UP TO RECLINER THIS SHIFT. PRN PAIN MEDCATIONS ADMINISTERED UPON REQUEST. PT RESTS IN BED AT THIS TIME, CALL LIGHT IN REACH, WILL CONTINUE TO MONITOR.
--- NOTE | 2020-05-26 19:05 | NUR ---
PT HAD EPISODE OF AMS WHILE EATING DINNER. PT DGTR WAS PRESENT AT TIME. DGTR REPORTED PT TO BE LESS RESPONSIVE AND "STARING OFF". NURSING STAFF ENTERED ROOM IMMEDIATELY AND ASSESSED PT. VS ASSESSED, PT SECURED FOR SAFETY AND HOUSECALLS NURSE NOTIFIED FOR RAPID. CODE STROKE CALLED AND PT TRANSPORTED TO CT. NEURO CONSULT. PHYSICIAN NOTIFIED. PT DGTR IN PT ROOM AND PT CURRENTLY IN CT AT THIS TIME. ONSET APPROX 1848. PT SQUEEZED FINGERS AND MOVED FOOT AT APPROX 1858. PT TRANSPORTED ON 5L OXYGEN BY NASAL CANNULA.
[2020-05-26 19:54] LABS: ABSOLUTE LYMPHOCYTES 1.2 thou/uL (0.8-5.3); ABSOLUTE MONOCYTES 0.6 thou/uL (0.0-1.2); ABSOLUTE NEUTROPHILS 4.3 thou/uL (1.6-8.1); BASOPHILS 0.6 %; EOSINOPHILS 0.5 %; HEMATOCRIT 25.8 % (37.0-47.0); HEMOGLOBIN 8.4 gm/dL (12.0-15.0); LYMPHOCYTES 19.9 %; MCH 27.1 pg (26.0-34.0); MCHC 32.5 g/dL (28.0-37.0); MCV 83.5 fL (80.0-100.0); MONOCYTES 9.7 %; MPV 8.3 fl. (7.2-11.1); NUCLEATED RBCS 0 /100WBC; PLATELET COUNT* 196 thou/uL (150-400); POLYS 69.3 %; RBC 3.09 mil/uL (4.20-5.00); RDW-CV 14.8 % (10.5-14.5); WBC 6.2 thou/uL (4.0-11.0)
[2020-05-26 19:59] LABS: CALCIUM 8.1 mg/dL (8.5-10.1); POTASSIUM 3.8 mmol/L (3.5-5.1)
[2020-05-26 20:04] LABS: ALBUMIN 2.7 g/dL (3.4-5.0); TOTAL BILIRUBIN 0.6 mg/dL (<0.1-1.0); TOTAL PROTEIN 6.5 g/dL (6.4-8.2)
--- NOTE | 2020-05-26 20:13 | NUR ---
REPORT GIVEN TO ESTHER FERGOSO, PT TRANSFERRING TO TELE UNIT. DR WHITE RETURNED CALL AND STATES THEY WILL SEE PT IN THE MORNING. DTR WITH PT AND INFORMED OF TRANSFER TO TELE UNIT, PLEASANT AND APPRECIATIVE.
--- NOTE | 2020-05-26 20:29 | NUR ---
PT TRANSFERRED BY BED TO ROOM 222 TELE UNIT WITH BELONGINGS, ACCOMPANIED BY DTR CATHY AND 2 TELE TECHS. 157/74 101 20 97.7 TEMPORAL.
[2020-05-26 20:30] VITALS: BP 167/88
[2020-05-27] VITALS (7 sets, daily range): BP systolic 103–141; BP diastolic 58–82
[2020-05-27 04:23] LABS: CALCIUM 9.3 mg/dL (8.5-10.1); CREATININE 1.1 mg/dL (0.6-1.3); POTASSIUM 3.8 mmol/L (3.5-5.1)
[2020-05-27 04:39] LABS: HEMATOCRIT 24.7 % (37.0-47.0); MCH 26.9 pg (26.0-34.0); MCHC 32.4 g/dL (28.0-37.0); MCV 83.2 fL (80.0-100.0); MPV 8.8 fl. (7.2-11.1); RBC 2.96 mil/uL (4.20-5.00); RDW-CV 14.5 % (10.5-14.5); WBC 6.6 thou/uL (4.0-11.0)
--- NOTE | 2020-05-27 04:41 | NUR ---
RECEIVED PT FROM [facility] AT APPROX 2034. PT IS AWAKE AND IS NOT IN DISTRESS. PT IS ABLE TO ANSWER YES AND NO QUESTIONS, AND IS ABLE TO TALK SOME WORDS WITH MODERATE APHASIA. NO DESATURATIONS NOTED ON 2L OF O2/NC. NIH STROKE SCALE DONE CHARTED. PUREWICK PLACED FOR INCONTINENCE. PT IS KEPT CLEAN AND DRY, POSITION CHANGES DONE. PAIN MEDICINE GIVEN PER APR FOR HIP PAIN WITH RELIEF. PT IS CLOSELY MONITORED. HIGH FALL PRECAUTIONS IN PLACE.
[2020-05-28 03:40] VITALS: BP 174/76
[2020-05-28 04:48] LABS: HEMATOCRIT 25.6 % (37.0-47.0); HEMOGLOBIN 8.4 gm/dL (12.0-15.0); MCH 27.5 pg (26.0-34.0); MCHC 32.8 g/dL (28.0-37.0); MCV 83.8 fL (80.0-100.0); MPV 8.6 fl. (7.2-11.1); RBC 3.06 mil/uL (4.20-5.00); RDW-CV 14.7 % (10.5-14.5); WBC 5.8 thou/uL (4.0-11.0)
[2020-05-28 04:55] LABS: CALCIUM 9.1 mg/dL (8.5-10.1); POTASSIUM 3.5 mmol/L (3.5-5.1)
--- NOTE | 2020-05-28 06:09 | NUR ---
PT AWAKE MOST OF SHIFT. ASSESSMENT DOCUMENTED. MEDS GIVEN PER E-MAR. IV PATENT, FLUIDS INFUSING. PAIN MEDS GIVEN PER E-MAR WITH SOME RELIEF. PT REPOSITIONED THROUGH SHIFT. DRESSING TO RIGHT HIP WITH SHADOWING. FALL PRECAUTIONS IN PLACE. PT VERY RESTLESS PART OF SHIFT. WILL CONTINUE WITH PLAN OF CARE.
--- NOTE | 2020-05-28 07:00 | NUR ---
PT REFUSING MI AND SCD'S THIS AM.
[2020-05-28 09:00] VITALS: BP 162/52
--- NOTE | 2020-05-28 11:12 | EKG ---
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
--- NOTE | 2020-05-28 11:12 | EKG ---
[place] [address] ELECTROCARDIOGRAM REPORT Name: WANG SMITH Room: [address] IN .R.#: [id number] Admission: 05/24/20 Attend Phys: Raúl Clifford Discharge: Date of : 47 Date of Service: 05/26/201957 Report #: [id number] THIS REPORT FOR: //name// [facility] Test Date: 2020-05-26 Test Time: 19:58:48 Pat Name: WANG SMITH Department: Room: [facility] Gender: F Pharmaceutical Operator: : 1945 Requested By: Raúl Clifford Order Number: [id number] Giselle MD: Thomas Rueda Measurements Intervals [place] Rate: 114 P: 105 VT: 167 QRS: 130 QRSD: 84 T: 128 QT: 330 QTc: 455 Interpretive Statements Right and left arm electrode reversal, interpretation assumes no reversal Sinus tachycardia Consider left atrial enlargement Probable lateral infarct, old Compared to ECG 04/17/2020 17:40:29 Myocardial infarct finding now present Sinus rhythm no longer present Ventricular premature complex(es) no longer present Electronically Signed On 05-28-2020 11:11:58 CDT by Thomas Rueda [email or web address] <ELECTRONICALLY SIGNED> By: Thomas Rueda MD, FACC 05/28/20 1111 57 57 Thomas Rueda MD, FAC /EPI
[2020-05-28 12:00] VITALS: BP 142/69
--- NOTE | 2020-05-28 14:56 | NUR ---
CM INFORMED DURING PRIME ROUNDING OF PLAN OF CARE. ARU CONSULTED AND PLAN FOR PT TO BE ACCEPTED PENDING INSURANCE AUTH. CM WILL REMAIN AVAILABLE TO ASSIST AND FOLLOW NEEDED.
--- NOTE | 2020-05-28 18:45 | NUR ---
ASSUMED PT CARE AT 0730. PT IS ALERT AND CONFUSED, SPOUSE IS AT BEDSIDE. ASSESSMENT COMPLETED AND PT NOTED TO BE IN GRIMACING AND MOANING, MOTIONING TOWARDS R LEG. PAIN MED GIVEN AND EFFECTIVE. PT CONTINUED TO HAVE NO BM, SOAP SUDS ENEMA GIVEN WITH EFFECTIVE RESULTS. PT HAD XLARGE BM. DRESSINGS TO RIGHT HIP PARTIALLY SOILED AND DRESSINGS CHANGED. NO REDDNESS OR WARMTH NOTED, DWIGHT HEALING WELL. LAB CALLED WITH CRITICAL LAB, +BLOOD CULTURE, GRAM POSSITIVE COCCI. NEW ORDERS RECIEVED AND IV ANTIBIOTICS STARTED. PT TAKES MEDICATIONS ONE AT A TIME, WITH APPLESAUCE AND LARGE PILLS CRUSHED. FAMILY EXPRESSED CONCERNS, DOCTOR NOTIFIED AND PT ADVOCATE NOTIFIED.
[2020-05-29 00:40] VITALS: BP 126/62
[2020-05-29 04:40] LABS: ABSOLUTE EOSINOPHILS 0.1 thou/uL (0.0-0.7); ABSOLUTE LYMPHOCYTES 0.8 thou/uL (0.8-5.3); ABSOLUTE MONOCYTES 0.5 thou/uL (0.0-1.2); ABSOLUTE NEUTROPHILS 3.5 thou/uL (1.6-8.1); BASOPHILS 0.8 %; EOSINOPHILS 2.4 %; HEMATOCRIT 26.8 % (37.0-47.0); HEMOGLOBIN 8.6 gm/dL (12.0-15.0); LYMPHOCYTES 15.8 %; MCH 26.9 pg (26.0-34.0); MCHC 32.2 g/dL (28.0-37.0); MCV 83.4 fL (80.0-100.0); MONOCYTES 9.4 %; MPV 8.2 fl. (7.2-11.1); NUCLEATED RBCS 0 /100WBC; PLATELET COUNT* 289 thou/uL (150-400); POLYS 71.6 %; RBC 3.22 mil/uL (4.20-5.00); RDW-CV 14.8 % (10.5-14.5); WBC 4.9 thou/uL (4.0-11.0)
[2020-05-29 04:50] LABS: CALCIUM 8.6 mg/dL (8.5-10.1); CREATININE 0.9 mg/dL (0.6-1.3); POTASSIUM 3.2 mmol/L (3.5-5.1)
[2020-05-29 05:02] VITALS: BP 160/76
--- NOTE | 2020-05-29 05:57 | NUR ---
PATIENT SLEPT MOST OF THE NIGHT. NEW IV WAS STARTED CHARTED. IV FLUIDS AND VANC WERE GIVEN ORDERED. PATIENT WAS GIVEN PAIN MEDS ONCE THIS SHIFT. WILL CONTINUE TO MONITOR.
[2020-05-29 08:33] VITALS: BP 142/74
[2020-05-29 12:00] VITALS: BP 145/63
--- NOTE | 2020-05-29 15:25 | NUR ---
PT ROUNDS; MRI FOR STROKE RULE OUT. LOW HEMOGLOBIN. GI WORKUP. PENDING INSUR AUTH FOR ARU.
--- NOTE | 2020-05-29 16:01 | NUR ---
ASSUMED PT CARE AT 0730. PT IS ALERT TO NAME AND APPEARS TO BE MORE ALERT TODAY. ASSESSMENT COMPLETED, PT C/O PAIN AND PRN PAIN MED GIVEN WITH SOME RELIEF. PT RESTING WITH EYES CLOSED.ROUNDS COMPLETED EVERY 2HR AND PT TURNED AND REPOSITIONED NEEDED. SAFETY MEASURES IN PLACE. SPOUSE IS AT BEDSIDE. PT TOOK MEDICATIONS WELL WITH CHOCOLATE PUDDING. PT IN TO ASSESS PT. NEW ORDER FOR UA RECIEVED.
[2020-05-29 16:20] VITALS: BP 120/64
[2020-05-29 19:17] LABS: URINE BILIRUBIN NEGATIVE (Negative); URINE BLOOD NEGATIVE (Negative); URINE CLARITY CLEAR; URINE COLOR YELLOW; URINE GLUCOSE-RANDOM NEGATIVE (Negative); URINE KETONES NEGATIVE (Negative); URINE LEUKOCYTES 1+ (Negative); URINE NITRITE NEGATIVE (Negative); URINE PROTEIN NEGATIVE (Negative); URINE UROBILINOGEN 0.2 E.U./dl (0.2-1.0)
[2020-05-29 19:39] LABS: MUCUS None Seen strn/LPF (None Seen); SQUAMOUS 0-3 Few /LPF (0-3)
[2020-05-29 19:40] LABS: BACTERIA 1-9 Few /HPF (None Seen); CASTS None Seen /LPF (None Seen); CRYSTALS None Seen /LPF (None Seen); URINE RBC 0-2 Rare /HPF (0-2); URINE WBC 0-5 Rare /HPF (0-5)
[2020-05-29 19:42] VITALS: BP 146/82
[2020-05-30] VITALS: BP 140/68
[2020-05-30 00:46] LABS: HEMATOCRIT 23.7 % (37.0-47.0); HEMOGLOBIN 7.8 gm/dL (12.0-15.0); MCH 27.5 pg (26.0-34.0); MCHC 32.9 g/dL (28.0-37.0); MCV 83.7 fL (80.0-100.0); MPV 7.6 fl. (7.2-11.1); RBC 2.83 mil/uL (4.20-5.00); RDW-CV 14.9 % (10.5-14.5)
[2020-05-30 01:06] LABS: CALCIUM 8.8 mg/dL (8.5-10.1); CREATININE 0.9 mg/dL (0.6-1.3); POTASSIUM 3.6 mmol/L (3.5-5.1)
--- NOTE | 2020-05-30 03:49 | NUR ---
PT ALERT, ORIENTED TO SELF, VSS ON ROOM AIR. IV FLUIDS INFUSING ORDERED. PT REPOSITIONED Q2H, AT TIMES REFUSED. PUREWICK IN USE. TYLENOL GIVEN AT 1945 FOR PAIN REQUESTED BY PATIENT'S DAUGHTER. PT'S DAUGHTER STATED SHE WAS OK FOR PT TO GET NORCO LATER IN THE EVENING OR LATER DURING SEMICONDUCTOR PACKAGES TESTER. NORCO GIVEN AT 2347. AT APPROX 0235 PT STATED PAIN 6, PHYSICIAN CONTACTED AT 0245, NO NEW ORDERS GIVEN AND APPLY ICE PKS. PT SLEEPING INTERMITTANTLY THROUGHOUT NIGHT. WILL CONTINUE TO MONITOR.
[2020-05-30 04:00] VITALS: BP 141/88
[2020-05-30 07:31] VITALS: BP 130/88
--- NOTE | 2020-05-30 14:04 | NUR ---
Nutrition: Pt seen for LOS. Admitted with hip FX. in room to talk with me today. Pt was finishing her lunch tray - ate about half. stated that pt's appetite seems to be improving. Wt: 165#, no wt changes per . Regular diet. Provided pt with a menu. Alb 2.7, prealb 11.7. Pt appeared tired. No nutrition concerns at this time. Low risk.
--- NOTE | 2020-05-30 14:47 | NUR ---
PLAN OF CARE: INPT SIGN WRITER HAND INFORMS THAT PT HAS BEEN DECLINED FOR INPT REHAB AT THIS TIME. PT'S FAMILY REQUEST TO SPEAK TO PHYSICIAN. PT'S FAMILY REQUESTING INFO ABOUT [facility] VISITORS POLICY AND INFORM OF PLAN TO VISIT FACILITY. CM TO FAX SNF REFERRAL TO [facility]. CM WILL REMAIN AVAILABLE TO ASSIST AND FOLLOW NEEDED.
[2020-05-30 16:31] VITALS: BP 126/76
[2020-05-30 20:54] VITALS: BP 144/68
[2020-05-31] VITALS (7 sets, daily range): BP systolic 137–161; BP diastolic 60–88
[2020-05-31 04:26] LABS: HEMATOCRIT 27.1 % (37.0-47.0); HEMOGLOBIN 8.7 gm/dL (12.0-15.0); MCV 84.3 fL (80.0-100.0); MPV 7.6 fl. (7.2-11.1); RBC 3.22 mil/uL (4.20-5.00); RDW-CV 14.8 % (10.5-14.5)
[2020-05-31 04:32] LABS: CREATININE 0.8 mg/dL (0.6-1.3); POTASSIUM 3.5 mmol/L (3.5-5.1)
--- NOTE | 2020-05-31 05:01 | NUR ---
PT IS ABLE TO COMMUNICATE HER NEEDS TO STAFF WITH MINOR DIFFICULTY; SHE HAS SOME EXPRESSIVE APHASIA AND CAN BE CONFUSED AT TIMES. CURRENT PAIN MEDICATION REGIMEN HAS BEEN ADEQUATE FOR CONTROLLING HER PAIN UP TO THIS TIME. PT LIKELY TO HAVE PICC LINE PLACEMENT TODAY; NO IV ACCESS CURRENTLY-MD IS AWARE AND HAS APPROVED. SURGICAL DRESSING REMAINS INTACT AT THIS TIME.
--- NOTE | 2020-05-31 10:43 | NUR ---
LEFT BASILIC VESSEL ACCESSED FOR 4 KHMER SINGLE LUMEN PICC. LINE PRE-TRIMMED TO 43CM AND ADVANCED TO THE ZERO JOSH WITH NO RESISTANCE MET. UPPER ARM CIRCUMFERENCE ABOVE INSERTION SITE = 13". SHERLOCK MAGNET AND 3CG CONFIRMATION OF TIP TERMINATION AT THE CAVOATRIAL JUNCTION APPRECIATED. GUDIE WIRE REMOVED, LINE FLUSHED AND INSERTION SITE DRESSED. REPORT GIVEN TO JOSH FREGOSO.
--- NOTE | 2020-05-31 13:03 | NUR ---
PLAN OF CARE: PLAN REMAINS FOR THE PT TO D/C TO SNF WHEN MEDICALLY STABLE AND APPROVED BY INSURANCE. CM CALLED TO F/U ON SNF REFERRAL FAXED TO [facility] YESTERDAY AND FAXED UPDATED PT/OT NOTES. CM ALSO INFORMED PT/OT OF THE IMPORTANCE OF PT/OT DAILY VISITS TO ASSIST WITH INSURANCE AUTH. PT'S FAMILY TO VISIT [facility] TO TOUR THE FACILITY. CM WILL REMAIN AVAILABLE TO ASSIST AND FOLLOW NEEDED.
[2020-06-01 05:04] VITALS: BP 113/45; BP 138/59
--- NOTE | 2020-06-01 05:38 | NUR ---
PT A&O, FORGETFUL AT TIMES. VSS ON RA. PILLS CRUSHED AND GIVEN WITH APPLE SAUCE. C/O PAIN BUT REFUSED PAIN MED. TYLENOL GIVEN PER PT REQUEST LATER. DRESSING TO RT HIP INTACT. PUREWICK IN PLACE. TURNS, HOURLY ROUNDINGS COMPLETED. WILL CONTINUE TO MONITOR.
[2020-06-01 08:05] VITALS: BP 177/70
--- NOTE | 2020-06-01 12:17 | NUR ---
PLAN: PLAN FOR PT TO D/C TO SNF WHEN MEDICALLY STABLE. CM AND PHYSICIAN SPOKE TO THE PT AND HER SPOUSE AT THE BEDSIDE AND DTR WAS ON SPEAKERPHONE TO DISCUSS PLAN OF CARE AND D/C PLANNING. PHYSICIAN ADDRESSED ALL OF THE DTR'S CONCERNS ABOUT CARE, MEDICATIONS, AND THERAPIES. PT, DTR, AND SPOUSE NOW IN AGREEMENT WITH THE PLAN FOR PT TO D/C TO SNF. PT'S DTR INFORMS THAT SHE WOULD LIKE FOR THE PT TO GO TO [facility], AND PLANS TO TOUR THE FACILTY OVER THE WEEKEND. CM SPOKE TO ADMISSIONS AT [facility] AND THEY CONFIRM ABILITY TO PROVIDE TOUR OVER THE WEEKEND. CM FAXED PT'S CLINICAL INFO TO [facility]. CM WILL REMAIN AVAILABLE TO ASSIST AND FOLLOW NEEDED. [facility] PHONE: [phone] FAX: [phone]
[2020-06-01 15:42] VITALS: BP 156/77
--- NOTE | 2020-06-01 18:05 | NUR ---
PATIENT RESTING IN BED. PATIENT IS UP MAX ASSIST OF 2. PATIENT WORKED WITH PHYSICAL THERAPY THIS AFTERNOON. PATIENT WAS UP TO COMMODE WITH THERAPY AND HAD SMALL BOWEL MOVEMENT. PATIENT HAS ALSO USED BEDPAN AND HAS BEEN CONTINENT TODAY. PATIENT HAS GOOD APPETITE, MEALS REQUIRE SETUP. PATIENT TAKES MEDICATION CRUSHED IN APPLESAUCE. PATIENT HAS HAD COMPLAINTS OF PAIN TO RIGHT HIP, LIDOCAINE PATCH PLACED AND HYDROCODONE GIVEN X 1 PER PATIENT REQUEST. PATIENT DENIES ANY NEEDS AT THIS TIME. CALL LIGHT WITHIN REACH. BED ALARM ON.
[2020-06-01 21:01] VITALS: BP 165/82
--- NOTE | 2020-06-01 22:21 | NUR ---
RIGHT LEG RED, SWOLLEN, WARM TO TOUCH. SURGICAL DRESSING CHANGED, ICE PACK APPLIED. VANCOMYCIN DUE AT 0400. ORTHO SURGEON NOTIFIED AND WILL BE IN THE MORNING TO SEE HER.
--- NOTE | 2020-06-02 04:47 | NUR ---
PT HAS EXPRESSIVE APHASIA, RIGHT SIDE LIMBS ARE FLACCID. MAX ASSIST, INCONTINENT OF URINE, Q2 TURN. HYDROCODONE GIVEN CRUSHED IN APPLESAUCE FOR PAIN, SURGICAL DRESSING CHANGED, ICE ON LEG OVER INFECTION SITE. PT IS AFEBRILE. RECEIVED ALL MEDS SCHEDULED.
[2020-06-02 07:45] VITALS: BP 161/74
[2020-06-02 09:20] LABS: HEMATOCRIT 31.4 % (37.0-47.0); MCH 27.4 pg (26.0-34.0); MCHC 31.8 g/dL (28.0-37.0); MCV 86.1 fL (80.0-100.0); MPV 7.2 fl. (7.2-11.1); RBC 3.65 mil/uL (4.20-5.00); RDW-CV 15.6 % (10.5-14.5); WBC 7.8 thou/uL (4.0-11.0)
[2020-06-02 09:31] LABS: CALCIUM 8.8 mg/dL (8.5-10.1); CREATININE 0.8 mg/dL (0.6-1.3); POTASSIUM 3.4 mmol/L (3.5-5.1)
[2020-06-02 10:08] LABS: BF RBC 6356 /mm3; TOTAL CELL COUNT 384 /mm3
[2020-06-02 10:29] LABS: CLARITY SLIGHTLY HAZY; TOTAL VOLUME 15 ml
[2020-06-02 10:35] LABS: BF LYMPHOCYTES 25 %; BF MONOCYTES 57 %; BF POLYS 18 %
[2020-06-02 10:38] LABS: SOURCE RIGHT KNEE FLUID
[2020-06-02 16:39] VITALS: BP 155/51
--- NOTE | 2020-06-02 18:45 | NUR ---
PT ORIENTED X 2-3. FAMILY AT BEDSIDE MOST OF THE DAY. PT ON Q2 TURNS AND FALL PRECAUTIONS. PRN PAIN MEDS GIVEN. PT ANXIOUS. MIDLINE REMAINS SALINE LOCKED. PT REMAINS ON ROOM AIR. WILL CONTINUE TO MONITOR.
[2020-06-02 19:44] VITALS: BP 138/51
[2020-06-03 05:25] LABS: HEMATOCRIT 28.9 % (37.0-47.0); HEMOGLOBIN 9.3 gm/dL (12.0-15.0); MCH 27.5 pg (26.0-34.0); RBC 3.37 mil/uL (4.20-5.00); RDW-CV 15.6 % (10.5-14.5); WBC 7.2 thou/uL (4.0-11.0)
[2020-06-03 05:31] LABS: CALCIUM 8.5 mg/dL (8.5-10.1); CREATININE 0.9 mg/dL (0.6-1.3); POTASSIUM 3.4 mmol/L (3.5-5.1)
--- NOTE | 2020-06-03 05:34 | NUR ---
PT ALERT 2-3. HARD TIME COMMUNICATING, NEEDS EXTRA TIME. MAX ASSIST, INCONTINENT OF URINE. RECEIVED ALL MEDS SCHEDULED. Q2 TURN. DRESSING ON WOUND INTACT. RIGHT LEG STILL SWOLLEN AND WARM TO TOUCH. REPOSITIONED FOR COMFORT. FENTANYL GIVEN. SHE IS ABLE TO COMMUNICATE SOME WITH WHAT SHE NEEDS. ENCOURAGED HYDRATION. DAUGHTER GAVE PROTEIN SHAKE, WATER ENCOURAGED OFTEN. SHE WAS ABLE TO SLEEP MOST OF THE SHIFT. SHE IS ABLE TO USE CALL LIGHT WHEN SHE NEEDS ASSISTANCE.
[2020-06-03 08:00] VITALS: BP 154/86
[2020-06-03 15:28] VITALS: BP 128/95
--- NOTE | 2020-06-03 17:49 | NUR ---
PT RESTING IN BED THROUGHOUT SHIFT. REPOSTIONED FREQUENTLY. PT UP IN CHAIR FOR APPROX AN HOUR THIS SHIFT. ENCOURAGED PT TO USE BSC BUT DTR REQUESTS PUREWICK. PAIN POORLY CONTROLLED. POOR APPETITE. DTR AT BS AND PARTICIPATES IN CARE.
[2020-06-03 21:36] VITALS: BP 128/95
--- NOTE | 2020-06-04 04:27 | NUR ---
PT MAX ASSIST IN BED. Q2 TURN, PUREWICK IN PLACE. FENTANYL AND HYDROCODONE GIVEN. SHE DOES NOT SLEEP VERY MUCH AT ALL OR FOR ANY LENGTH OF TIME. SHE USES CALL LIGHT OFTEN FOR ASSISTANCE WITH BLANKETS AND REPOSITIONING. HYDRATION ENCOURAGED. PAIN SEEMS TO BE CONTROLLED FAIRLY WELL, SHE IS UNABLE TO RATE THE PAIN VERBALLY.
[2020-06-04 05:06] LABS: BODY FLUID PROTEIN 216.4 g/dL (())
[2020-06-04 05:29] LABS: HEMATOCRIT 25.1 % (37.0-47.0); MCH 27.7 pg (26.0-34.0); MCV 86.6 fL (80.0-100.0); MPV 6.7 fl. (7.2-11.1); RBC 2.9 mil/uL (4.20-5.00); RDW-CV 16.2 % (10.5-14.5); WBC 5.6 thou/uL (4.0-11.0)
[2020-06-04 05:54] LABS: CALCIUM 8.3 mg/dL (8.5-10.1); CREATININE 0.9 mg/dL (0.6-1.3); POTASSIUM 3.7 mmol/L (3.5-5.1)
[2020-06-04] MEDS ORDERED: KEPPRA 500 MG500 M1 PO (09:02)
[2020-06-04] MEDS ORDERED: ELIQUIS5 MG PO (09:02)
[2020-06-04] MEDS ORDERED: CEFPODOXIME PR100 MG PO (09:02)
[2020-06-04] MEDS ORDERED: LIDOPATCH1 EACH TOP (09:02)
[2020-06-04] MEDS ORDERED: HYDROCODON-ACE1 EAC7 PO (09:02)
[2020-06-04] MEDS ORDERED: MIRALAX17 GM PO (09:02)
[2020-06-04] MEDS ORDERED: ACETAMINOPHEN325 M1 PO (09:02)
[2020-06-04] MEDS ORDERED: COLACE 100 MG100 MG PO (09:02)
[2020-06-04 13:11] VITALS: BP 153/76
[2020-06-04] MEDS ORDERED: NEURONTIN 300M300 M2 PO (13:24)
--- NOTE | 2020-06-04 15:13 | NUR ---
PLAN OF CARE: PHYSICIAN INFORMS OF PLAN FOR PT TO D/C TO SNF TODAY PENDING ACCEPTANCE. CM RECIEVED A CALL FROM [facility] TO INFORM THAT THE PT'S INSURANCE HAS APPROVED SNF. CM SPOKE TO THE PT, HER SPOUSE AND DTR TO INFORM OF THIS. PT'S DTR INFORMS THAT SHE HAS MANY CONCERNS AND DOES NOT AGREE WITH THE PLAN TO D/C TODAY. PT'S DTR REQUEST TO SEAK TO THE HOSPITALIST AND THE SURGEON TO DISCUSS HER CONCERNS INCLUDING: PAIN MANAGEMENT, SPEECH THERAPY, AND ORTHO ABOUT HER HIP PAIN. CM INFORMED PHYSICIAN. PHYSICIAN SPOKE TO PT'S DTR. PLAN REMAINS FOR PT TO D/C TO SNF TODAY. PT'S DTR INFORMS OF PLANS TO APPEAL D/C. [facility] ABLE TO ACCEPT PT TODAY. CM WILL REMAIN AVAILABLE TO ASSIST AND FOLLOW NEEDED. [facility] PHONE: [phone] FAX: [phone]
[2020-06-04 16:09] VITALS: BP 168/67
--- NOTE | 2020-06-04 19:12 | NUR ---
PT DC TO [facility] AT 1900. IV OUT. PT STABLE. DAUGHTER TOOK BELONGINGS. REPORT CALLED
--- NOTE | 2020-06-05 12:49 | OP ---
[address] [address] OPERATIVE REPORT Name: SARAHWANG Yordy Room: [address]#: [id number] Admission: 05/24/20 Attend Phys: Sophia Rocha Discharge: 06/04/20 Date of : 47 Report #: [id number] THIS REPORT FOR: cc: Nahun Christine MD, Jonathan MD Barnhill, Gregory L. DO ~ DICTATED BY: Jayesh Conte DO DATE OF SERVICE: 05/24/2020 PREOPERATIVE DIAGNOSIS: Displaced right intertrochanteric hip fracture. POSTOPERATIVE DIAGNOSIS: Displaced right intertrochanteric hip fracture. PROCEDURE: Open reduction and internal fixation with a cephalomedullary nail. IMPLANTS USED: Cicero gamma nail size 10 x 170 mm, 125 degree with a 105 mm lag screw and 37.5 mm distal interlocking screw. SURGEON: Joaquin Christie DO ASSISTANTS: 1. Rosana Jones DO 2. Jayesh Conte DO ANESTHESIA: General. FLUIDS: Crystalloid per Anesthesia. ESTIMATED BLOOD LOSS: 200 mL. DRAINS: None. SPECIMENS: None. COMPLICATIONS: None. CONDITION: Stable to PACU. DISPOSITION: Recovery in PACU and transferred to the floor. ANTIBIOTICS: 2 grams Ancef IV preop. INDICATIONS FOR PROCEDURE: The patient is a very pleasant 75-year-old female. She suffered a ground-level fall. She was brought to [facility] [address] [place] [address] OPERATIVE REPORT Name: WANG SMITH Room: [address] IN M.R.#: [id number] Admission: 05/24/20 Attend Phys: Sophia Rocha Discharge: 06/04/20 Date of : 47 Report #: [id number] where x-rays identified a displaced intertrochanteric/basicervical hip fracture. We recommended surgical fixation. The risks, benefits, alternatives and possible complications were discussed. The patient was understanding and agreeable to proceed. DESCRIPTION OF PROCEDURE: The patient was met in the preoperative area. The correct site was marked. Consent was obtained both verbally and written. She was transferred to the operative suite and placed supine on the fracture table. She was given benefit of general anesthesia. The right hip was then prepped and draped in the usual sterile fashion. A timeout was performed to identify the correct patient, procedure, operative site and administration of antibiotics. All in the room were in agreement. The procedure began with localizing our bony landmarks for the incision. We marked out the tip of the greater trochanter and made an incision proximal to this approximately 6-8 cm in line with the femur. A sharp dissection was carried down through the tensor fascia. Our starting point was identified using fluoroscopic imaging with a guidewire. This was then advanced to the level of the lesser trochanter. The appropriate positioning of this was confirmed on both AP and lateral fluoroscopic imaging. The opening reamer was then utilized to gain access to the femoral canal. The nail was then assembled on the back table. The guidewire was removed followed by insertion of the nail into the femoral canal. Appropriate positioning of this was confirmed on x-rays. We then prepared for placement of the lag screw. An incision was made laterally through the skin and then through the IT band. The guide was placed to the level of bone. We utilized a bone hook to aid in the reduction of the calcar. A guidewire was then advanced through the lateral cortex into the femoral neck and into the femoral head. Appropriate positioning of this was confirmed on AP and lateral fluoroscopic imaging. We then measured and reamed 100 mm in preparation for a 105 mm lag screw. The lag screw was then screwed into place to the appropriate depth. We then placed the set screw to secure the screw. This was confirmed to be down and engaged into the flutes as we were unable to advance the lag screw any further. We then turned our attention to the distal interlocking screw. The triple sleeve was utilized. A scalpel was used to make a small incision through the skin and the IT band. Triple sleeve was advanced to the level of bone. We then drilled, measured and placed a 37.5 mm distal interlocking screw. Appropriate positioning of our implants and maintenance of the reduction was confirmed on fluoroscopic imaging. Final x-rays were taken and saved. The wounds were then thoroughly irrigated. The deep tissue was reapproximated with 0 Vicryl suture in [id number] fashion. Subcutaneous tissue was reapproximated with 2-0 Vicryl in simple interrupted inverted fashion followed by chong on the skin and a sterile Mepilex dressing. The patient was transferred to PACU in stable condition. There were no complications. Needle and sponge counts were correct x 2 at the end of the [address] [address] OPERATIVE REPORT Name: WANG SMITH Room: [address] [facility] IN M.R.#: [id number] Admission: 05/24/20 Attend Phys: Sophia Rocha Discharge: 06/04/20 Date of : 47 Report #: [id number] Christie was present and scrubbed throughout all critical aspects of the case. <ELECTRONICALLY SIGNED> By: Dex Quinones DO 06/05/20 1249 [id number] Christie DO /nt
== END 2020-06-04 19:14 | DRG 480 ==
LOC: M.ERS 07:31 → M.ORTHSURG 08:57 → M.TBA-ER 08:57 → M.2W 08:57 → M.ORTHSURG 13:45 → M.2W 05-26 21:05 → M.ORTHSURG 06-01 07:55
PROVIDERS: Emergency Medicine Emergency Medical Services; Internal Medicine; Orthopaedic Surgery; ADMIT Internal Medicine; ATTEND Internal Medicine
DX: S72.141A Displaced intertrochanteric fracture of right femur, initial encounter for closed fracture (principal); N17.0 Acute kidney failure with tubular necrosis; A41.9 Sepsis, unspecified organism; G92 Toxic encephalopathy; I69.351 Hemiplegia and hemiparesis following cerebral infarction affecting right dominant side; L03.115 Cellulitis of right lower limb; D50.9 Iron deficiency anemia, unspecified; K59.00 Constipation, unspecified; Z20.822 Contact with and (suspected) exposure to COVID-19; I10 Essential (primary) hypertension; T50.995A Adverse effect of other drugs, medicaments and biological substances, initial encounter; W18.39XA Other fall on same level, initial encounter; Y93.89 Activity, other specified; Y92.89 Other specified places as the place of occurrence of the external cause; Y99.8 Other external cause status; Z79.82 Long term (current) use of aspirin; Z79.899 Other long term (current) drug therapy; Z91.011 Allergy to milk products; Z88.0 Allergy status to penicillin; Z88.8 Allergy status to other drugs, medicaments and biological substances; Z91.018 Allergy to other foods